=== PATIENT | female | born 1935 | race Caucasian/White ===

== ENCOUNTER 2022-11-16 17:46 | Inpatient (IN) ==
--- NOTE | 2022-11-16 18:23 | ED Triage Note ---
Date of Service November 16, 2022 History of Present Illness This patient was briefly evaluated while in triage. An abbreviated physical exam was performed. This patient is a 87-year-old Female who was referred to the emergency department by her PCP, Dr. Mejia, for evaluation of a syncopal episode, dizziness and new onset A-fib. According to her PCP, she is currently on 2 rate reducing medications. The patient also has a history of dementia. The patient was brought to the emergency department by her daughter. The patient reports a throbbing pain across the chest. The patient is a resident at [facility]. The patient believes that her palpitations started last night, and felt it in her right chest area. Patient also reports shortness of breath as well. Patient has a known history of aortic stenosis and coronary artery disease. The daughter did bring the ECG from the PCPs office, showing atrial fibrillation at a rate of 130 bpm without obvious ischemia or infarct. Physical Exam CONSTITUTIONAL: Healthy and well nourished. Alert and oriented X 3. HEENT: Mucous membranes are not dry. RESPIRATORY: Clear to auscultation bilaterally with no wheezing, crackles, rhonchi or stridor. CARDIOVASCULAR: Tachycardic rhythm without obvious murmurs, rubs or gallops. GASTROINTESTINAL: Bowel sounds present in all quadrants. INTEGUMENTARY: No rash or other significant dermatologic conditions noted. HEMATOLOGIC: No ecchymosis or petechiae. PSYCHIATRIC: Positive affect. NEUROLOGIC: No focal neurologic deficits noted. Initial orders for labs and / or imaging were placed and patient was placed in the waiting area until a bed is available. Please see further documentation for the full ED course.
[2022-11-16] MEDS ORDERED: dilTIAZem HCl 5 MG/ML 5 ML VIAL IV STA ×2 (18:43→19:13)
[2022-11-16] MEDS ORDERED: dilTIAZem HCl 5 MG/ML 5 ML VIAL IV ONE (18:44)
[2022-11-16] MEDS ORDERED: STAT IV Infusion **Titration per Protocol STA (18:47)
[2022-11-16] MEDS ORDERED: SODIUM CHLORIDE 0.9% 1000ML 1,000 ML IV SCH (19:00)
[2022-11-16 19:04] LABS: Basophils # (auto) 0.04 K/uL (0-0.2); Basophils % (auto) 0.4 %; Eosinophils # (auto) 0.04 K/uL (0-0.50); Eosinophils % (auto) 0.4 %; Hematocrit (blood only) 43.6 % (37.0-47.0); Hemoglobin 13.6 g/dl (12.0-16.0); Lymphocytes # (auto) 1.36 K/uL (1.2-3.4); Lymphocytes % (auto) 13.9 %; Mean Corpuscular Hemoglobin 27.1 pg (25.0-34.0); Mean Corpuscular Hgb Conc 31.2 g/dL (32.0-36.0); Mean Corpuscular Volume 86.9 fL (80.0-100.0); Mean Platelet Volume 10.2 fL (9.4-12.4); Monocytes # (auto) 0.95 K/uL (0.11-0.59); Monocytes % (auto) 9.7 %; Neutrophils # (auto) 7.31 K/uL (1.40-6.50); Neutrophils % (auto) 74.6 %; Platelet Count 258 K/uL (130-400); RDW Coefficient of Variation 15.3 % (11.5-14.5); RDW Standard Deviation 48.8 fL (36.4-46.3); Red Blood Count 5.02 M/uL (4.20-5.40)
[2022-11-16] MEDS: dilTIAZem HCL 125 MG in DEXTROSE 5% 100 ML IV SCH (19:05)
[2022-11-16 19:17] LABS: Albumin Globulin Ratio 1.6 (0.9-2); Albumin Level 4.4 gm/dl (3.4-5.0); BUN Creatinine Ratio 33.7 (10-20); Bilirubin,Total 0.4 mg/dl (0.2-1.0); Creatinine Clr Calc Pharmacy 43.3 ml/min; Est GFR (African American) 65.8 ml/min; Est GFR (Non-African American) 56.8 ml/min; Globulin 2.8 gm/dl (2.5-4.0); Magnesium 1.9 mg/dl (1.7-2.4); Potassium 4.5 mmol/L (3.5-5.1); Total Protein 7.2 gm/dl (6.0-8.3)
[2022-11-16 19:23] LABS: Troponin I High Sensitivity 40.3 pg/ml (0-14)
[2022-11-16 19:40] LABS: Partial Thromboplastin Ratio 0.9; Partial Thromboplastin Time 25.5 Seconds (21.0-31.0); Prothrombin Time 10.7 Seconds (9.0-12.0)
[2022-11-16 19:49] LABS: D Dimer 1160 ug/L FEU (0-500)
--- NOTE | 2022-11-16 19:50 | Emergency Department Note ---
History of Present Illness General Chief complaint: Tachycardia Stated complaint: TACHYCARDIA,SOB,SWEATING Time Seen by Provider: 11/16/22 18:37 Source: family (Daughter at bedside) History of Present Illness Provider complaint: Palpitations syncope shortness of breath Onset (ago): day(s) 1 87-year-old female with history of dementia presents emergency department for palpitations syncope shortness of breath. Daughter is at bedside giving history. Daughter reports that the patient has syncopal episode today. They took her to her PCP office at [facility] and then was found to have new onset atrial fibrillation. The patient is reporting shortness of breath but no chest pain. No blood thinners. Home Medications Medication Instructions Recorded Confirmed Type Saccharomyces boulardii 250 mg 250 mg PO QAM 12/06/21 11/16/22 History capsule acetaminophen 325 mg tablet 650 mg PO Q6H PRN PAIN/FEVER 12/06/21 11/16/22 History (Tylenol) allopurinol 100 mg tablet 100 mg PO QAM 12/06/21 11/16/22 History aspirin 81 mg chewable tablet 81 mg PO DAILY 12/06/21 11/16/22 History atorvastatin 10 mg tablet 10 mg PO PM 12/06/21 11/16/22 History carvedilol 3.125 mg tablet 1.5625 mg PO BID 12/06/21 11/16/22 History cholecalciferol (vitamin D3) 25 25 mcg PO Q OTHER DAY 12/06/21 11/16/22 History mcg (1,000 unit) capsule (Vitamin D3) cyanocobalamin (vitamin B-12) 500 1,000 mcg PO QAM 12/06/21 11/16/22 History mcg tablet (Vitamin B-12) diltiazem HCl 120 mg tablet 120 mg PO QAM 12/06/21 11/16/22 History insulin glargine 100 unit/mL (3 22 unit subcut HS 12/06/21 11/16/22 History mL) subcutaneous pen (Lantus Solostar U-100 Insulin) lactulose 10 gram/15 mL oral 30 g PO QAM 12/06/21 11/16/22 History solution [id number] 5 mg-zeaxanth 1 cap PO QID 12/06/21 11/16/22 History 1 mg-bilberry 7.5 mg-herbal capsule (Macular Health Formula) sodium chloride-aloe vera nasal 1 ea intranasal BID 12/06/21 11/16/22 History swab coQ10 (ubiquinol) 200 mg capsule 200 mg PO DAILY 11/16/22 11/16/22 History donepezil 10 mg tablet 10 mg PO DAILY 11/16/22 11/16/22 History escitalopram oxalate 10 mg tablet 10 mg PO DAILY 11/16/22 11/16/22 History (Lexapro) ezetimibe 10 mg tablet (Zetia) 10 mg PO DAILY 11/16/22 11/16/22 History losartan 25 mg tablet 12.5 mg PO DAILY 11/16/22 11/16/22 History metformin 500 mg tablet,extended 500 mg PO QDD 11/16/22 11/16/22 History release 24 hr Allergies Allergy/AdvReac Type Severity Reaction Status Date / Time pollen extracts Allergy Intermediate ITCHY Verified 11/16/22 19:31 EYES, SNEEZING, CONGESTION lisinopril Allergy Unknown CAN'T Verified 11/16/22 19:31 REMEMBER oxaprozin [From Daypro] Allergy Unknown CAN'T Verified 11/16/22 19:31 REMEMBER Penicillins Allergy Unknown CAN'T Verified 11/16/22 19:31 REMEMBER Past Med/Surg History Medical History Coronary artery disease Diabetic peripheral neuropathy Gout Gouty arthropathy History of bladder cancer History of subarachnoid hemorrhage History of traumatic brain injury Hyperlipidemia Intracranial bleed Memory loss Moderate to severe aortic stenosis No significant family history Type 2 diabetes mellitus Surgical History History of coronary artery stent placement No significant past surgical history Social History Smoking Status: Never smoker Preferred Language: Lithuanian marital status: / Current Living Situation: Alone current occupational status: retired Feels Safe at Home: Yes Physical Exam Vital Signs Vital Signs - 24 hr 11/16/22 18:18 11/16/22 19:12 11/16/22 18:54 Temperature 36.3 C L Temperature Source Temporal Artery Scan Pulse Rate 130 H 101 H Pulse Rate [Left Apical] 104 H Pulse Rhythm Regular Pulse Strength Normal Respiratory Rate 18 25 H Respiratory Effort / Characteristics Non-Labored Spontaneous Respiratory Depth Normal Respiratory Pattern Regular Blood Pressure 138/87 Blood Pressure [Right Arm] 132/83 Blood Pressure Mean 104 Blood Pressure Mean [Right Arm] 99 Blood Pressure Position Sitting Pulse Oximetry 96 97 Oxygen Delivery Method Room Air Room Air Sepsis Recent Fever Within 48 Hours No Sepsis New/Unexplained Change in Mental Status No Sepsis Action Taken by Nursing No Action Required 11/16/22 19:12 11/16/22 19:15 11/16/22 19:30 Temperature Temperature Source Pulse Rate 91 H 98 H 99 H Pulse Rate [Left Apical] Pulse Rhythm Pulse Strength Respiratory Rate 25 H 26 H 26 H Respiratory Effort / Characteristics Respiratory Depth Respiratory Pattern Blood Pressure 132/83 130/99 127/82 Blood Pressure [Right Arm] Blood Pressure Mean 99 109 97 Blood Pressure Mean [Right Arm] Blood Pressure Position Pulse Oximetry 96 95 95 Oxygen Delivery Method Room Air Room Air Room Air Sepsis Recent Fever Within 48 Hours Sepsis New/Unexplained Change in Mental Status Sepsis Action Taken by Nursing 11/16/22 19:45 11/16/22 20:25 11/16/22 20:30 Temperature Temperature Source Pulse Rate 115 H 90 99 H Pulse Rate [Left Apical] Pulse Rhythm Pulse Strength Respiratory Rate 26 H 18 18 Respiratory Effort / Characteristics Respiratory Depth Respiratory Pattern Blood Pressure 122/99 122/78 140/89 Blood Pressure [Right Arm] Blood Pressure Mean 106 92 106 Blood Pressure Mean [Right Arm] Blood Pressure Position Pulse Oximetry 94 95 95 Oxygen Delivery Method Room Air Room Air Room Air Sepsis Recent Fever Within 48 Hours Sepsis New/Unexplained Change in Mental Status Sepsis Action Taken by Nursing 11/16/22 21:00 11/16/22 21:30 Temperature Temperature Source Pulse Rate 103 H 96 H Pulse Rate [Left Apical] Pulse Rhythm Pulse Strength Respiratory Rate 29 H 29 H Respiratory Effort / Characteristics Respiratory Depth Respiratory Pattern Blood Pressure 138/85 123/102 H Blood Pressure [Right Arm] Blood Pressure Mean 102 109 Blood Pressure Mean [Right Arm] Blood Pressure Position Pulse Oximetry 95 94 Oxygen Delivery Method Room Air Room Air Sepsis Recent Fever Within 48 Hours Sepsis New/Unexplained Change in Mental Status Sepsis Action Taken by Nursing Physical Exam HENT: Exam performed. -Head: Normocephalic and atraumatic. -Right Ear: External ear normal. No mastoid erythema -Left Ear: External ear normal. No mastoid erythema -Mouth/Throat: The oropharynx is clear and moist. No trismus in the jaw. No dental abscesses or uvula swelling. No oropharyngeal exudate or tonsillar abscesses. EYES: Conjunctivae and EOM are normal. Pupils are equal, round, and reactive to light. Right eye exhibits no discharge. Left eye exhibits no discharge. No scleral icterus. NECK: spinous process tenderness present. No JVD. CV: Tachycardic rate, irregular rhythm, normal heart sounds and intact distal pulses. There is no peripheral edema. Palpable radial pulses bue. PULM/CHEST: Effort normal and breath sounds normal. No respiratory distress. No stridor. She has no wheezes. She has no rales. ABD: The abdomen is soft.There is no tenderness. There is no rebound, no guarding. MUSC/SKEL: Pelvis stable. NEURO: Motor and sensation grossly intact. Course Course 1836: The patient was evaluated in room A10. A complete history and physical exam was performed Cardiac monitoring: An order was placed for continuous cardiac monitoring. The monitor shows a rate of 130-150 with atrial fibrilation rhythm interpreted by me Patient was found to be in A-fib RVR. Local IV access was obtained the patient was given Cardizem 15 mg IV push which improved ventricular rate. Patient be started on Cardizem drip. 2208: Vital signs stable Cardizem drip. Labs within normal limits with exceptio n of elevated D-dimer and elevated troponin. CTA of the chest negative for PE. There is mention of possible bronchitis/scarring of the lungs/pneumonia, patient has no leukocytosis no cough no fever, not thought to need any antibiotics at this time. No anticoagulation for the patient is going to be started as the patient has a sick Kniffin history for history of a traumatic brain injury and subarachnoid hemorrhage. Aspirin will be given to the patient. Patient be admitted to the [facility] team Dr. Lowe notified. Administered Medications Diltiazem HCl 125 mg/ Dextrose 125 mls @ 7.5 mls/hr IV .[id number] [facility]; Protocol Stop: 12/16/22 18:59 Last Titration: 11/16/22 21:20 Dose: 7.5 mg/hr, 7.5 mls/hr Documented By: SANDRA Co-signed By: KIMBERLY Admin: 11/16/22 19:05 Dose: 5 mg/hr, 5 mls/hr Documented By: LILLIAM Co-signed By: Sodium Chloride (Nss 1000ml) 1,000 mls @ 80 mls/hr IV .[id number] ANTWAN Stop: 12/16/22 18:59 Last Admin: 11/16/22 19:09 Dose: 80 mls/hr Documented By: LILLIAM Discontinued Medications Diltiazem HCl (Diltiazem Hcl 5 Mg/Ml 5 Ml Vial) 20 mg IV NOW STA Stop: 11/16/22 18:44 Last Admin: 11/16/22 20:43 Dose: Not Given Documented By: SANDRA Diltiazem HCl (Diltiazem Hcl 5 Mg/Ml 5 Ml Vial) Confirm Administered Dose 25 mg IV .STK-MED ONE Stop: 11/16/22 18:45 Last Admin: 11/16/22 19:17 Dose: Not Given Documented By: LILLIAM Diltiazem HCl (Diltiazem Hcl 5 Mg/Ml 5 Ml Vial) 15 mg IV NOW STA Stop: 11/16/22 19:14 Last Admin: 11/16/22 19:00 Dose: 15 mg Documented By: LILLIAM Co-signed By: Ioversol (Optiray 320 500ml) 108 ml IV ONCE ONE Stop: 11/16/22 20:06 Last Admin: 11/16/22 20:05 Dose: 108 ml Documented By: ILIANA Miscellaneous (Stat Iv Infusion Titration Per Protocol) 1 each N/A NOW STA Stop: 11/16/22 18:48 Last Admin: 11/16/22 21:32 Dose: Not Given Documented By: SANDRA Critical Care Time Critical Care Time: Yes Total Critical Care Time: 58 I have personally spent greater than 58 minutes of critical care time in the direct management of this patient. This includes bedside care, interpretation of diagnostic studies, and testing, discussion with consultants, patient, and family members, and other required patient management activities. This 58 minutes is in excess of all separately billable procedures. Medical Decision Making Laboratory Data Attestation: I reviewed the patient's lab results. 11/16/22 18:26 11/16/22 18:26 Lab Results 11/16/22 11/16/22 11/16/22 Range/Units 18:26 18:26 18:26 WBC 9.80 (4.8-10.8) K/ul RBC 5.02 (4.20-5.40) M/uL Hgb 13.6 (12.0-16.0) g/dl Hct 43.6 (37.0-47.0) % MCV 86.9 (80.0-100.0) fL MCH 27.1 (25.0-34.0) pg MCHC 31.2 L (32.0-36.0) g/dL RDW Std Deviation 48.8 H (36.4-46.3) fL RDW Coeff of Alejandra 15.3 H (11.5-14.5) % Plt Count 258 (130-400) K/uL MPV 10.2 (9.4-12.4) fL Immature Gran % (Auto) 1.0 % Neut % (Auto) 74.6 % Lymph % (Auto) 13.9 % Maries % (Auto) 9.7 % Eos % (Auto) 0.4 % Baso % (Auto) 0.4 % Neut # (Auto) 7.31 H (1.40-6.50) K/uL Lymph # (Auto) 1.36 (1.2-3.4) K/uL Maries # (Auto) 0.95 H (0.11-0.59) K/uL Eos # (Auto) 0.04 (0-0.50) K/uL Baso # (Auto) 0.04 (0-0.2) K/uL Immature Gran # (Auto) 0.10 (0.01-0.20) K/uL PT 10.7 (9.0-12.0) Seconds INR 1.0 (0.9-1.1) APTT 25.5 (21.0-31.0) Seconds PTT Ratio 0.9 D-Dimer 1160 H* (0-500) ug/L FEU Sodium 139 (136-145) mmol/L Potassium 4.5 (3.5-5.1) mmol/L Chloride 102 (98-107) mmol/L Carbon Dioxide 31 (21-32) mmol/L Anion Gap 6 (3-11) BUN 31 H (6-23) mg/dl Creatinine 0.92 (0.6-1.2) mg/dl Est Cr Clr Drug Dosing 43.3 ml/min Est GFR ( Amer) 65.8 ml/min Est GFR (Non-Af Amer) 56.8 ml/min BUN/Creatinine Ratio 33.7 H (10-20) Glucose 163 H (70-99(Fasting)) mg/dl Calcium 10.0 (8.6-10.3) mg/dl Magnesium 1.9 (1.7-2.4) mg/dl Total Bilirubin 0.4 (0.2-1.0) mg/dl AST 32 (13-39) U/L ALT 41 (7-52) U/L Alkaline Phosphatase 93 (34-104) U/L Troponin I High Sens 40.3 H (0-14) pg/ml Total Protein 7.2 (6.0-8.3) gm/dl Albumin 4.4 (3.4-5.0) gm/dl Globulin 2.8 (2.5-4.0) gm/dl Albumin/Globulin Ratio 1.6 (0.9-2) Imaging Data Attestation: I personally reviewed and interpreted this imaging study as follows: My Impression: Chest x-ray negative. Airway clear. No pneumothorax. No consolidation. No cardiomegaly or cephalization.. No free air under the diaphragm. No fractures of the skeletal structures. Radiologist's Impression: Head CT 11/16/22 18:38 Exam(s): CT HEAD Without Contrast EXAM: CT Head Without Intravenous Contrast CLINICAL HISTORY: Reason for exam: syncope. TECHNIQUE: Axial computed tomography images of the head/brain without intravenous contrast. CTDI is 26.22 mGy and DLP is 531.35 mGy-cm. Automated exposure control was utilized for the study. A dose lowering technique was utilized adhering to the principles of ALARA. COMPARISON: December 06, 2021 FINDINGS: Brain: Mild cerebral atrophy and periventricular white matter low density consistent with chronic small vessel disease and/or senescent changes. 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 No acute large vessel infarct or intracranial hemorrhage is seen. Ventricles: Unremarkable. No ventriculomegaly. Bones/joints: Unremarkable. No acute fracture. Soft tissues: Unremarkable. Sinuses: Unremarkable as visualized. No acute sinusitis. Mastoid air cells: Unremarkable as visualized. No mastoid effusion. IMPRESSION: Mild cerebral atrophy and periventricular white matter low density consistent with chronic small vessel disease and/or senescent changes. 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 No acute large vessel infarct or intracranial hemorrhage is seen. Electronically signed by: Ayush Grimes MD 11/16/22 21:[address] 11/16/22 18:47 Exam(s): CT C SPINE EXAM: CT Cervical Spine Without Intravenous Contrast CLINICAL HISTORY: Reason for exam: fall syncope. TECHNIQUE: Axial computed tomography images of the cervical spine without intravenous contrast. CTDI is 11.4 mGy and DLP is 5.7 mGy-cm. Automated exposure control was utilized for the study. A dose lowering technique was utilized adhering to the principles of ALARA. COMPARISON: No relevant prior studies available. FINDINGS: Vertebrae: There is mild narrowing and osteophytosis of the atlantodental joint. The odontoid process is intact. No acute fracture. Soft tissues: Moderate calcification of the left carotid bifurcation. DISCS/SPINAL CANAL/NEURAL FORAMINA: C2-C3: Unremarkable. No significant disc disease. No stenosis. C3-C4: Moderate degenerative disc disease. No stenosis. C4-C5: Mild degenerative disc disease. No stenosis. C5-C6: Moderate degenerative disc disease. No stenosis. C6-C7: Moderate degenerative disc disease. No stenosis. C7-T1: Mild degenerative disc disease. No stenosis. IMPRESSION: Mild to moderate multilevel degenerative disc disease and facet arthrosis throughout the cervical spine. No acute fracture or traumatic subluxation is seen. Electronically signed by: Ayush Grimes MD 11/16/22 21:46 PM Chest CTA 11/16/22 19:50 Exam(s): CTA CHEST IV Amt: 108ML OPTIRAY 320 EXAM: CT Angiography Chest With Intravenous Contrast CLINICAL HISTORY: Reason for exam: Syncope, fall, ro PE. TECHNIQUE: Axial computed tomographic angiography images of the chest with intravenous contrast. CTDI is 38.24 mGy and DLP is 546.36 mGy-cm. Automated exposure control was utilized for the study. A dose lowering technique was utilized adhering to the principles of ALARA. MIP reconstructed images were created and reviewed. COMPARISON: Chest x-ray from November 16, 2022 FINDINGS: Pulmonary arteries: The main pulmonary artery is mildly dilated measuring 4.4 cm suggesting some component of ulnar artery hypertension. The pulmonary arterial tree is well opacified with contrast. No pulmonary emboli are identified. Aorta: The thoracic aorta is mildly calcified but nondilated. There is no aneurysm or dissection. Lungs: Mildly prominent interstitial markings throughout the lungs with scattered linear scarring versus interstitial infiltrates in both lung bases. There is diffuse bronchial wall thickening consistent with bronchitis and/or emphysema. No mass. Pleural space: Unremarkable. No significant effusion. No pneumothorax. Heart: Heart is mildly enlarged. Severe coronary calcification is present. There is a trace pericardial effusion. No evidence of RV dysfunction. Bones/joints: Moderate multilevel degenerative changes throughout the spine. No acute fracture or destructive bone lesion is seen. Bilateral shoulder arthroplasties. No dislocation. Soft tissues: Unremarkable. Lymph nodes: Unremarkable. No enlarged lymph nodes. Kidneys and ureters: Limited images of the upper abdomen demonstrate numerous bilateral simple renal cysts. IMPRESSION: 1. The main pulmonary artery is mildly dilated measuring 4.4 cm suggesting some component of ulnar artery hypertension. 2. Heart is mildly enlarged. Severe coronary calcification is present. There is a trace pericardial effusion. 3. Mildly prominent interstitial markings throughout the lungs with scattered linear scarring versus interstitial infiltrates in both lung bases. There is diffuse bronchial wall thickening consistent with bronchitis and/or emphysema. 4. The pulmonary arterial tree is well opacified with contrast. No pulmonary emboli are identified. 5. The thoracic aorta is mildly calcified but nondilated. There is no aneurysm or dissection. Electronically signed by: Ayush Grimes MD 11/16/22 21:14 PM ECG Data Attestation: I personally reviewed and interpreted this ECG as follows: Additional Comments: EKG #1 at 1834: Atrial fibrillation with rate of 128. QRS [address] elevation or ST depression. EKG #2 at 1849 status post Cardizem bolus: Atrial fibrillation with a rate of 116. QRS [address] elevation or ST depression. [facility] Narrative 1837: The patient was evaluated in room A10. A complete history and physical exam was performed Cardiac monitoring: An order was placed for continuous cardiac monitoring. The monitor shows a rate of 130-150 with atrial fibrilation rhythm interpreted by me Patient was found to be in A-fib RVR. Local IV access was obtained the patient was given Cardizem 15 mg IV push which improved ventricular rate. Patient be started on Cardizem drip. 2208: Vital signs stable Cardizem drip. Labs within normal limits with e xception of elevated D-dimer and elevated troponin. CTA of the chest negative for PE. There is mention of possible bronchitis/scarring of the lungs/pneumonia, patient has no leukocytosis no cough no fever, not thought to need any antibiotics at this time. No anticoagulation for the patient is going to be started as the patient has a sick [place]iff[place] history for history of a traumatic brain injury and subarachnoid hemorrhage. Aspirin will be given to the patient. Patient be admitted to the [facility] hospitalist team Dr. Lowe notified. Impression & Plan Atrial fibrillation with RVR, Syncope, Elevated troponin Discharge Plan Visit Data Chief Complaint: Tachycardia Stated Complaint: TACHYCARDIA,SOB,SWEATING ED Provider: Frederick Whitlock Discharge Problem: Atrial fibrillation with RVR, Syncope, Elevated troponin Patient Disposition: Admitted As Inpatient Forms Stand Alone Forms: [facility] Prescriptions Prescriptions: No Action acetaminophen [Tylenol] 325 mg Tablet 650 mg PO Q6H MDD 3 GRAMS/24 HOURS PRN (Reason: PAIN/FEVER) atorvastatin 10 mg Tablet 10 mg PO PM allopurinol 100 mg Tablet 100 mg PO QAM carvedilol 3.125 mg Tablet 1.5625 mg PO BID diltiazem HCl 120 mg Tablet 120 mg PO QAM cyanocobalamin (vitamin B-12) [Vitamin B-12] 500 mcg Tablet 1,000 mcg PO QAM aspirin 81 mg Tablet,Chewable 81 mg PO DAILY cholecalciferol (vitamin D3) [Vitamin D3] 25 mcg (1,000 unit) Capsule 25 mcg PO Q OTHER DAY Saccharomyces boulardii 250 mg Capsule 250 mg PO QAM lactulose 10 gram/15 mL Solution 30 g PO QAM [place] Saline Gel Swab 1 ea INTRANASAL BID Rx Instructions: NASAL DRYNESS insulin glargine [Lantus Solostar U-100 Insulin] 100 unit/mL (3 mL) Insulin Pen 22 unit SUBCUT [facility] Formula 5-1-7.5 mg Capsule 1 cap PO QID donepezil 10 mg Tablet 10 mg PO DAILY losartan 25 mg Tablet 12.5 mg PO DAILY metformin 500 mg Tablet Extended Release 24 Hr 500 mg PO QDD escitalopram oxalate [Lexapro] 10 mg Tablet 10 mg PO DAILY ezetimibe [Zetia] 10 mg Tablet 10 mg PO DAILY coQ10 (ubiquinol) 200 mg Capsule 200 mg PO DAILY Referrals Referrals: Lisa Dasilva Vernon [Primary Care Provider] - Syncope Qualifiers: Syncope type: unspecified Qualified Code(s): R55 - Syncope and collapse
[2022-11-16] MEDS ORDERED: OPTIRAY 320 500ml IV ONE (20:05)
--- NOTE | 2022-11-16 21:15 | CT Scan Report ---
Exam(s): CTA CHEST IV Amt: 108ML OPTIRAY 320 EXAM: CT Angiography Chest With Intravenous Contrast CLINICAL HISTORY: Reason for exam: Syncope, fall, ro PE. TECHNIQUE: Axial computed tomographic angiography images of the chest with intravenous contrast. CTDI is 38.24 mGy and DLP is 546.36 mGy-cm. Automated exposure control was utilized for the study. A dose lowering technique was utilized adhering to the principles of ALARA. MIP reconstructed images were created and reviewed. COMPARISON: Chest x-ray from November 16, 2022 FINDINGS: Pulmonary arteries: The main pulmonary artery is mildly dilated measuring 4.4 cm suggesting some component of ulnar artery hypertension. The pulmonary arterial tree is well opacified with contrast. No pulmonary emboli are identified. Aorta: The thoracic aorta is mildly calcified but nondilated. There is no aneurysm or dissection. Lungs: Mildly prominent interstitial markings throughout the lungs with scattered linear scarring versus interstitial infiltrates in both lung bases. There is diffuse bronchial wall thickening consistent with bronchitis and/or emphysema. No mass. Pleural space: Unremarkable. No significant effusion. No pneumothorax. Heart: Heart is mildly enlarged. Severe coronary calcification is present. There is a trace pericardial effusion. No evidence of RV dysfunction. Bones/joints: Moderate multilevel degenerative changes throughout the spine. No acute fracture or destructive bone lesion is seen. Bilateral shoulder arthroplasties. No dislocation. Soft tissues: Unremarkable. Lymph nodes: Unremarkable. No enlarged lymph nodes. Kidneys and ureters: Limited images of the upper abdomen demonstrate numerous bilateral simple renal cysts. IMPRESSION: 1. The main pulmonary artery is mildly dilated measuring 4.4 cm suggesting some component of ulnar artery hypertension. 2. Heart is mildly enlarged. Severe coronary calcification is present. There is a trace pericardial effusion. 3. Mildly prominent interstitial markings throughout the lungs with scattered linear scarring versus interstitial infiltrates in both lung bases. There is diffuse bronchial wall thickening consistent with bronchitis and/or emphysema. 4. The pulmonary arterial tree is well opacified with contrast. No pulmonary emboli are identified. 5. The thoracic aorta is mildly calcified but nondilated. There is no aneurysm or dissection. Electronically signed by: Ayush Grimes MD 11/16/22 21:14 PM
--- NOTE | 2022-11-16 21:41 | CT Scan Report ---
Exam(s): CT HEAD Without Contrast EXAM: CT Head Without Intravenous Contrast CLINICAL HISTORY: Reason for exam: syncope. TECHNIQUE: Axial computed tomography images of the head/brain without intravenous contrast. CTDI is 26.22 mGy and DLP is 531.35 mGy-cm. Automated exposure control was utilized for the study. A dose lowering technique was utilized adhering to the principles of ALARA. COMPARISON: December 06, 2021 FINDINGS: Brain: Mild cerebral atrophy and periventricular white matter low density consistent with chronic small vessel disease and/or senescent changes. 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 No acute large vessel infarct or intracranial hemorrhage is seen. Ventricles: Unremarkable. No ventriculomegaly. Bones/joints: Unremarkable. No acute fracture. Soft tissues: Unremarkable. Sinuses: Unremarkable as visualized. No acute sinusitis. Mastoid air cells: Unremarkable as visualized. No mastoid effusion. IMPRESSION: Mild cerebral atrophy and periventricular white matter low density consistent with chronic small vessel disease and/or senescent changes. 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 No acute large vessel infarct or intracranial hemorrhage is seen. Electronically signed by: Ayush Grimes MD 11/16/22 21:40 PM
--- NOTE | 2022-11-16 21:47 | CT Scan Report ---
Exam(s): CT C SPINE EXAM: CT Cervical Spine Without Intravenous Contrast CLINICAL HISTORY: Reason for exam: fall syncope. TECHNIQUE: Axial computed tomography images of the cervical spine without intravenous contrast. CTDI is 11.4 mGy and DLP is 5.7 mGy-cm. Automated exposure control was utilized for the study. A dose lowering technique was utilized adhering to the principles of ALARA. COMPARISON: No relevant prior studies available. FINDINGS: Vertebrae: There is mild narrowing and osteophytosis of the atlantodental joint. The odontoid process is intact. No acute fracture. Soft tissues: Moderate calcification of the left carotid bifurcation. DISCS/SPINAL CANAL/NEURAL FORAMINA: C2-C3: Unremarkable. No significant disc disease. No stenosis. C3-C4: Moderate degenerative disc disease. No stenosis. C4-C5: Mild degenerative disc disease. No stenosis. C5-C6: Moderate degenerative disc disease. No stenosis. C6-C7: Moderate degenerative disc disease. No stenosis. C7-T1: Mild degenerative disc disease. No stenosis. IMPRESSION: Mild to moderate multilevel degenerative disc disease and facet arthrosis throughout the cervical spine. No acute fracture or traumatic subluxation is seen. Electronically signed by: Ayush Grimse MD 11/16/22 21:46 PM
[2022-11-17] MEDS ORDERED: CARBOHYDRATES FOR HYPOGLYCEMIA PO PRN ×2 (00:38→07:59)
[2022-11-17] MEDS: INSULIN ASPART PER UNIT CHARGE SC SCH ×5 (00:38→20:17)
[2022-11-17] MEDS ORDERED: SODIUM CHLORIDE 0.9% 1000ML 1,000 ML IV SCH (00:38)
[2022-11-17] MEDS ORDERED: DEXTROSE 50% 50 ML SYRINGE IV PRN ×2 (00:38→07:59)
[2022-11-17] MEDS ORDERED: ACETAMINOPHEN 325 MG TAB PO PRN (00:38)
[2022-11-17] MEDS ORDERED: GLUCOSE 10 TAB/TUBE PO PRN ×2 (00:38→07:59)
[2022-11-17] MEDS ORDERED: GLUCOSE 40% GEL 15 GM TUBE PO PRN ×2 (00:38→07:59)
[2022-11-17] MEDS ORDERED: NITROGLYCERIN SL 0.4 MG/TAB TAB SL PRN (00:38)
[2022-11-17] MEDS ORDERED: GLUCAGON FOR INJ 1 MG VIAL SQ PRN ×2 (00:38→07:59)
--- NOTE | 2022-11-17 02:37 | History and Physical Report ---
DATE OF ADMISSION: 11/16/2022. CHIEF COMPLAINT: Rapid AFib. HISTORY OF PRESENT ILLNESS: An 87-year-old female with past medical history significant for type 2 diabetes, diabetic peripheral neuropathy, hyperlipidemia, CAD, hypertension, severe aortic valve stenosis, moderate aortic valve stenosis, macular degeneration, gouty arthropathy, history of traumatic brain injury and subarachnoid hemorrhage as per the Epic in 10/2021, but daughter says this was in 05/2021, history of Alzheimer disease, depression, history of bladder cancer, seems to be in 2008, presents with rapid AFib. The patient went to her family doctor for regular visits and found to be in AFib and sent here and when she came in, heart rate was in the 130s. Currently with Cardizem drip,heart rates improved. The patient gets on and off chest pains per daughter for some time and she gets short of breath with exertion. She states she feels palpitations and at that time, she has some headaches. Today she is feeling hot and says she had sweats like this couple of months ago. Denies any blurred visions, no earache, no runny nose, no sore throat, difficulty swallowing. Appetite is okay. No nausea, no abdominal pain. Normal bowel and bladder movements. No swelling of the legs. The patient is very hard of hearing. Daughter is in the room, who is helping with H and P. ALLERGIES: POLLEN EXTRACTS, LISINOPRIL, OXAPROZIN, PENICILLINS. PAST MEDICAL HISTORY: As mentioned above. PAST SURGICAL HISTORY: Hysterectomy, cataract surgery, bilateral shoulder replacement. MEDICATIONS: The patient is on Tylenol 650 mg p.o. every 6 hours p.r.n., allopurinol 100 mg p.o. a.m., aspirin 81 mg p.o. daily, atorvastatin 10 mg p.o. daily, Coreg 3.125 mg tablets 1/2 tablet p.o. b.i.d., vitamin D 25 mcg p.o. every other day, vitamin B12 1000 mcg p.o. daily, diltiazem 120 mg p.o. daily, donepezil 10 mg p.o. daily, Lexapro 10 mg p.o. daily, Zetia 10 mg p.o. daily, Lantus 22 units subcutaneous at bedtime, lactulose 30 gm p.o. a.m., losartan 12.5 mg p.o. daily, metformin 500 mg p.o. daily, multivitamin 1 capsule p.o. q.i.d., saccharomyces 250 mg p.o. a.m. FAMILY HISTORY: Significant for sister has breast cancer,Brother has eye problems and stroke,. Mother has eye problems, heart disorder, stroke and thyroid disorder. Father has heart disorder. SOCIAL HISTORY: Currently lives at [facility]. No smoking, no alcohol, no drug use. REVIEW OF SYSTEMS: As per HPI. Rest of the review of systems is negative. PHYSICAL EXAMINATION: GENERAL: The patient is alert and awake, very hard of hearing, not in acute distress. VITAL SIGNS: Temperature 36.3, pulse 87, respiratory rate 26, blood pressure 143/82, oxygen 93% on room air. HEENT: Pupils equal, round and reactive to light. Oral mucosa moist. NECK: No JVD. No neck masses. CARDIOVASCULAR: S1 and S2 heard. Regular rhythm, tachycardia. RESPIRATORY SYSTEM: Normal AP diameter. No accessory muscle use. No wheezing, no crackles. ABDOMEN: Soft, bowel sounds present, nontender, no distention. CENTRAL NERVOUS SYSTEM: Alert and oriented. Speech is clear. No facial droop. Obeys simple commands. Moves extremities. EXTREMITIES: No edema, no erythema. LABORATORY DATA: WBC 9.8, hemoglobin 13.6, hematocrit 43.6, platelets 258. PT 10.7, INR 1, APTT 25.8. D-dimer 1160. Sodium 139, potassium 4.5, chloride 102, bicarb 31, BUN 31, creatinine 0.9, serum glucose 163, calcium 10, magnesium 1.9, total bilirubin 0.4, AST 32, ALT 41, alkaline phosphatase 93. Troponin I high sensitivity 40.3. SARS-COVID rapid test negative. IMAGING DATA: CTA chest, main pulmonary artery is mildly dilated, measuring 4.4 cm, suggesting some component of pulmonary artery hypertension. Severe coronary artery calcification is present. Trace pericardial effusion. Diffuse bronchial wall thickening consistent with bronchitis or emphysema. Cervical spine CT, no acute findings. Head CT, no acute findings, old infarct in the occipital region. Chest x-ray, no acute findings. EKG, rapid atrial fibrillation with rate of 128, nonspecific ST abnormalities. ASSESSMENT AND PLAN: An 87-year-old female, who presents with rapid atrial fibrillation. 1. Rapid atrial fibrillation. Rate controlled with IV Cardizem, which will be continued. We will hold home p.o. diltiazem. Continue home Coreg. Because of history of falls and subarachnoid hemorrhage, Not started on anticoagulation for now. Consult cardiology in the a.m. for further recommendations. We will follow echocardiogram. Monitor in the tele floor, n.p.o. after midnight. 2. Diabetes. Currently n.p.o. We will continue with reduced Lantus 20 units at bedtime, insulin sliding scale. Hold metformin. Follow the blood sugars, follow HbA1c levels. 3. History of coronary artery disease. Continue aspirin, statin, and beta- jocelyn. Follow echocardiogram. 4. History of severe aortic valve stenosis.Will follow echo. Monitor for volume overload 5. History of mitral valve stenosis. Monitor for volume overload. Follow echocardiogram. Await cardiac input. 6. History of gout. Continue allopurinol. 7. Alzheimer disease. Monitor for delirium. 8. Hypertension. Continue losartan, Coreg. Currently on Cardizem drip. Holding p.o. diltiazem. Will monitor the blood pressure. 9. Depression. Continue Lexapro. 10. Deep venous thrombosis prophylaxis. Sequential compression devices for now. DISPOSITION: Closely monitor in the tele floor. Level 1 full code if chance of recovery as per discussion with the patient and daughter. PT/OT prior to discharge. Social service to help with discharge planning. Job ID: [id number] MTDD
[2022-11-17 05:49] LABS: Basophils # (auto) 0.03 K/uL (0-0.2); Basophils % (auto) 0.3 %; Eosinophils # (auto) 0.07 K/uL (0-0.50); Eosinophils % (auto) 0.8 %; Hematocrit (blood only) 41.1 % (37.0-47.0); Hemoglobin 13.2 g/dl (12.0-16.0); Immature Granulocytes # (auto) 0.06 K/uL (0.01-0.20); Immature Granulocytes % (auto) 0.7 %; Lymphocytes # (auto) 1.22 K/uL (1.2-3.4); Lymphocytes % (auto) 14.1 %; Mean Corpuscular Hemoglobin 27.6 pg (25.0-34.0); Mean Corpuscular Hgb Conc 32.1 g/dL (32.0-36.0); Mean Corpuscular Volume 85.8 fL (80.0-100.0); Mean Platelet Volume 10.4 fL (9.4-12.4); Monocytes # (auto) 0.82 K/uL (0.11-0.59); Monocytes % (auto) 9.5 %; Neutrophils # (auto) 6.44 K/uL (1.40-6.50); Neutrophils % (auto) 74.6 %; Platelet Count 199 K/uL (130-400); RDW Coefficient of Variation 15.4 % (11.5-14.5); RDW Standard Deviation 47.9 fL (36.4-46.3); Red Blood Count 4.79 M/uL (4.20-5.40); White Blood Count 8.64 K/ul (4.8-10.8)
[2022-11-17 06:03] LABS: BUN Creatinine Ratio 31.5 (10-20); Calcium 9.5 mg/dl (8.6-10.3); Creatinine Clr Calc Pharmacy 55.7 ml/min; Est GFR (Non-African American) 75.1 ml/min; Magnesium 1.6 mg/dl (1.7-2.4); Potassium 4.2 mmol/L (3.5-5.1)
--- NOTE | 2022-11-17 07:04 | Electrocardiogram Report ---
Test Reason : Blood Pressure : / mmHG Vent. Rate : 116 BPM Atrial Rate : 000 BPM P-R Int : 000 ms QRS Dur : 082 ms QT Int : 326 ms P-R-T Axes : 000 -04 091 degrees QTc Int : 453 ms Atrial fibrillation with rapid ventricular response Nonspecific ST and T wave abnormality Abnormal ECG When compared with ECG of 16-NOV-2022 18:34, (unconfirmed) No significant change was found Confirmed by Ruddy Marsh ([id number]) on 11/17/2022 7:04:23 AM Referred By: Ravin Mejia Confirmed By:Cristian Marsh
--- NOTE | 2022-11-17 07:04 | Electrocardiogram Report ---
Test Reason : Blood Pressure : / mmHG Vent. Rate : 128 BPM Atrial Rate : 000 BPM P-R Int : 000 ms QRS Dur : 078 ms QT Int : 320 ms P-R-T Axes : 000 -06 096 degrees QTc Int : 467 ms Atrial fibrillation with rapid ventricular response Nonspecific ST and T wave abnormality Abnormal ECG No previous ECGs available Confirmed by Ruddy Marsh ([id number]) on 11/17/2022 7:04:10 AM Referred By: Ravin Mejia Confirmed By:Cristian Marsh
--- NOTE | 2022-11-17 07:24 | XRay Report ---
XR chest 1V portable HISTORY: Chest pain, nonspecific COMPARISON: Chest 12/06/2021. FINDINGS: No pneumothorax. No pleural effusions. Bibasilar linear densities consistent with subsegmen heriberto atelectasis or scarring. This remains unchanged. The heart remains enlarged. There are mitral cecille ulus calcifications. Stable prominence of the right hilum due to enlargement of the central pulmonary arteries from pulmonary arterial hypertension. Bilateral total shoulder arthroplasties are again not ed. IMPRESSION: No significant change compared to the prior study. No acute process. ACT 112: Negative or not required by law. Electronically signed by: Paul Paniagua M.D. 11/17/2022 7:23 AM
[2022-11-17] MEDS ORDERED: carvediloL 3.125 MG TAB PO SCH (09:00)
[2022-11-17] MEDS ORDERED: LOSARTAN POTASSIUM 25 MG TAB PO SCH (09:00)
--- NOTE | 2022-11-17 09:20 | Cardiology Consultation ---
Date of Consultation November 17, 2022 Assessment & Plan (1) Atrial fibrillation with RVR: (2) Syncope: (3) Severe aortic stenosis: (4) Moderate mitral stenosis: Plan 87-year-old female with a known history of dementia, severe stenosis, moderate mitral stenosis, coronary heart disease presents with an episode of syncope, details not well known, vague chest discomfort, and newly recognized atrial fibrillation with rapid ventricular spots. High-sensitivity troponin measurements mildly elevated on presentation and trending downward with sequential measurements of 40.3, 31, and 28.7 PG per mL. Patient with history of multiple falls. In May, she was found to have multiple subarachnoid hemorrhages after a fall with head trauma. She is likely not a good candidate for long-term anticoagulation, however she is considered to be at a very high risk of stroke in the setting of atrial fibrillation with [id number] score of 8 (female, HTN, age >75, past stroke, CAD, DM2). CT is reassuring with no acute hemorrhage although it does reveal a previous infarct. In the short-term, recommend proceeding with unfractioned heparin infusion, low-dose without bolus. Continue IV diltiazem 7.5 mg/h. Discontinue oral carvedilol in favor of metoprolol tartrate 25 mg by mouth 4 times daily which can in turn be titrated up or down as her hospital stay progresses. Patient has a tentative upcoming appointment with the comprehensive valve clinic at [facility] scheduled on 11/21/2022. Her daughter and I had previously had a conversation that ongoing conservative management of her valve disease may be in the patient's best interest given her dementia and sedentary lifestyle. History of Present Illness Attending Physician: Donnie Smallwood MD History of Present Illness Sofia Quarles is an 87 year old female seen in cardiology consultation per the request of Dr Pinto for the evaluation of new onset atrial fibrillation with rapid ventricular response. The patient had recently been seen by the undersigned in outpatient consultation on 10/16/2022. She was accompanied by her daughter, Cassie, at that visit. She was previously followed by cardiology in [place] however, has suffered a progressive decline with regards to dementia, cognitive impairment, and multiple falls. She had been followed at [facility] for a fall that took place in May, with head trauma and the CT report dated 05/04/2021 from [facility] describes multiple subarachnoid hemorrhages at that time. About 8 months ago the patient moved to [facility] and his establish with local providers since she is no longer residing in [place]. An echocardiogram performed in August, revealed severe calcific aortic stenosis, moderate mitral stenosis, and preserved ejection fraction. A small circumferential pericardial effusion was noted. In the meantime a repeat study was performed on 10/30/2022 revealing a stable ongoing small circumferential pericardial effusion. Patient initially presented to her primary care provider, Dr. Mejia yesterday on 11/16/2022 and reported that she had a loss of consciousness/postural tone episode with preceding symptoms of chest discomfort. Patient was found to be in atrial fibrillation with rapid ventricular response and was therefore referred to the emergency department. At the time my assessment the patient is in room 216. She was comfortable and sleeping soundly. Obtaining additional history is limited due to her baseline dementia. She notes however feeling well at present with no subjective sensation of palpitations. She is on diltiazem 7.5 mg/h. Telemetry reveals ongoing atrial fibrillation however her presenting rate of 130 bpm has improved down to 100 to 116 bpm. The patient had previously followed with Dr Lopez of cardiology in [place]. Per review of the most recent outpatient cardiology progress note dated 02/06/2022, patient has a history of coronary heart disease, most recent cardiac catheterization took place in August, with normal left main, 40% mid LAD, 40% mid circumflex, severe in-stent restenosis of the ostial right coronary artery, 30% in-stent restenosis of the distal right coronary artery prompting PCI, drug-eluting stent to the ostial right coronary artery. Allergies Allergy/AdvReac Type Severity Reaction Status Date / Time pollen extracts Allergy Intermediate ITCHY Verified 11/16/22 19:31 EYES, SNEEZING, CONGESTION lisinopril Allergy Unknown CAN'T Verified 11/16/22 19:31 REMEMBER oxaprozin [From Daypro] Allergy Unknown CAN'T Verified 11/16/22 19:31 REMEMBER Penicillins Allergy Unknown CAN'T Verified 11/16/22 19:31 REMEMBER Home Medications Medication Instructions Recorded Confirmed Type Saccharomyces boulardii 250 mg 250 mg PO QAM 12/06/21 11/16/22 History capsule acetaminophen 325 mg tablet 650 mg PO Q6H PRN PAIN/FEVER 12/06/21 11/16/22 History (Tylenol) allopurinol 100 mg tablet 100 mg PO QAM 12/06/21 11/16/22 History aspirin 81 mg chewable tablet 81 mg PO DAILY 12/06/21 11/16/22 History atorvastatin 10 mg tablet 10 mg PO PM 12/06/21 11/16/22 History carvedilol 3.125 mg tablet 1.5625 mg PO BID 12/06/21 11/16/22 History cholecalciferol (vitamin D3) 25 25 mcg PO Q OTHER DAY 12/06/21 11/16/22 History mcg (1,000 unit) capsule (Vitamin D3) cyanocobalamin (vitamin B-12) 500 1,000 mcg PO QAM 12/06/21 11/16/22 History mcg tablet (Vitamin B-12) diltiazem HCl 120 mg tablet 120 mg PO QAM 12/06/21 11/16/22 History insulin glargine 100 unit/mL (3 22 unit subcut HS 12/06/21 11/16/22 History mL) subcutaneous pen (Lantus Solostar U-100 Insulin) lactulose 10 gram/15 mL oral 30 g PO QAM 12/06/21 11/16/22 History solution yattyyqg-fve-[id number] 5 mg-zeaxanth 1 cap PO QID 12/06/21 11/16/22 History 1 mg-bilberry 7.5 mg-herbal capsule (Macular Health Formula) sodium chloride-aloe vera nasal 1 ea intranasal BID 12/06/21 11/16/22 History swab coQ10 (ubiquinol) 200 mg capsule 200 mg PO DAILY 11/16/22 11/16/22 History donepezil 10 mg tablet 10 mg PO DAILY 11/16/22 11/16/22 History escitalopram oxalate 10 mg tablet 10 mg PO DAILY 11/16/22 11/16/22 History (Lexapro) ezetimibe 10 mg tablet (Zetia) 10 mg PO DAILY 11/16/22 11/16/22 History losartan 25 mg tablet 12.5 mg PO DAILY 11/16/22 11/16/22 History metformin 500 mg tablet,extended 500 mg PO QDD 11/16/22 11/16/22 History release 24 hr Patient History Medical History Coronary artery disease Diabetic peripheral neuropathy Gout Gouty arthropathy History of bladder cancer History of subarachnoid hemorrhage History of traumatic brain injury Hyperlipidemia Intracranial bleed Memory loss Moderate to severe aortic stenosis No significant family history Type 2 diabetes mellitus Surgical History History of coronary artery stent placement No significant past surgical history Social History Smoking Status: Never smoker Second Hand Exposure: No; Tobacco Cessation Education Requested by Patient: No Hx Alcohol Use: No Hx Substance Use: No Preferred Language: Jordanian Communication Ability: Effective Sausage Meat Trimmer Required: No Beliefs That Will Affect Care: None marital status: / Current Living Situation: Spouse Current Living Situation Comment: lives at [facility] current occupational status: retired Other Information That Helps Us Care for You: No Feels Safe at Home: Yes Safety Concerns: Feels Safe At This Time Assistive Devices: Walker Review of Systems Review of Systems: Unobtainable due to cognitive status Physical Exam Constitutional: no acute distress Respiratory: normal respiratory effort, lungs clear to auscultation Cardiovascular: Rate/Rhythm: + tachycardic and + irregularly irregular Heart Sounds: + murmur (3/6 systolic murmur, decreased second heart sound) Extremities: no edema Gastrointestinal (Abdomen): normal bowel sounds, soft, nontender, no hepatosplenomegaly Neurologic: PERRL, EOMI, accommodation nl, no face palsy, no dysarthria Results & Data Vital Signs (Past 12 Hours) Vital Signs Temp Pulse Pulse Resp BP BP BP 11/17/22 08:20 36.7 C 96 H 18 149/88 H 11/17/22 07:38 107 H 11/17/22 00:38 11/17/22 00:30 11/17/22 03:42 36.3 C L 94 H 20 138/69 11/17/22 00:43 106 H 11/17/22 00:30 36.5 C 104 H 20 138/91 11/17/22 00:00 91 H 26 H 144/87 H 11/16/22 23:30 87 26 H 143/82 H 11/16/22 23:00 103 H 31 H 143/73 H 11/16/22 22:31 101 H 27 H 135/90 11/16/22 21:30 96 H 29 H 123/102 H Pulse Ox Pulse Ox O2 Del Method O2 Del Method 11/17/22 08:20 93 Room Air 11/17/22 07:38 11/17/22 00:38 95 Room Air 11/17/22 00:30 Room Air 11/17/22 03:42 95 Room Air 11/17/22 00:43 11/17/22 00:30 95 Room Air 11/17/22 00:00 95 Room Air 11/16/22 23:30 93 Room Air 11/16/22 23:00 94 Room Air 11/16/22 22:31 95 Room Air 11/16/22 21:30 94 Room Air Laboratory Results Cardiac Enzymes 11/16/22 11/17/22 Range/Units 18:26 05:25 AST 32 (13-39) U/L Troponin I High Sens 40.3 H 31.0 H (0-14) pg/ml Coagulation 11/16/22 Range/Units 18:26 PT 10.7 (9.0-12.0) Seconds APTT 25.5 (21.0-31.0) Seconds CBC 11/16/22 11/17/22 Range/Units 18:26 05:25 WBC 9.80 8.64 (4.8-10.8) K/ul RBC 5.02 4.79 (4.20-5.40) M/uL Hgb 13.6 13.2 (12.0-16.0) g/dl Hct 43.6 41.1 (37.0-47.0) % Plt Count 258 199 (130-400) K/uL Neut # (Auto) 7.31 H 6.44 (1.40-6.50) K/uL Lymph # (Auto) 1.36 1.22 (1.2-3.4) K/uL Andrews # (Auto) 0.95 H 0.82 H (0.11-0.59) K/uL Eos # (Auto) 0.04 0.07 (0-0.50) K/uL Baso # (Auto) 0.04 0.03 (0-0.2) K/uL Comprehensive Metabolic Panel 11/16/22 11/17/22 Range/Units 18:26 05:25 Sodium 139 139 (136-145) mmol/L Potassium 4.5 4.2 (3.5-5.1) mmol/L Chloride 102 103 (98-107) mmol/L Carbon Dioxide 31 28 (21-32) mmol/L BUN 31 H 23 (6-23) mg/dl Creatinine 0.92 0.73 (0.6-1.2) mg/dl Glucose 163 H 133 H (70-99(Fasting)) mg/dl Calcium 10.0 9.5 (8.6-10.3) mg/dl AST 32 (13-39) U/L ALT 41 (7-52) U/L Alkaline Phosphatase 93 (34-104) U/L Total Protein 7.2 (6.0-8.3) gm/dl Albumin 4.4 (3.4-5.0) gm/dl Diagnostic Findings EKG performed 11/16/2022 1849 and interpreted independently: Atrial fibrillation at 116 bpm nonspecific repolarization changes. Repeat tracing 11/17/2022 at 6:39 AM, interpret independently: Atrial fibrillation at 99 beats per minute with T wave inversion limited to lead aVL. Summary of radiology report, CT of the head without contrast: Mild cerebral atrophy consistent with chronic small vessel disease Old infarct in the right occipital pole measuring 2.5 cm similar to previous study dated November, No acute large vessel infarct or intracranial hemorrhage observed Summary CTA of the chest performed 11/16/2022 1. The main pulmonary artery is mildly dilated measuring 4.4 cm suggesting some component of ulnar artery hypertension. 2. Heart is mildly enlarged. Severe coronary calcification is present. There is a trace pericardial effusion. 3. Mildly prominent interstitial markings throughout the lungs with scattered linear scarring versus interstitial infiltrates in both lung bases. There is diffuse bronchial wall thickening consistent with bronchitis and/or emphysema. 4. The pulmonary arterial tree is well opacified with contrast. No pulmonary emboli are identified. 5. The thoracic aorta is mildly calcified but nondilated. There is no aneurysm or dissection. Echocardiogram performed 11/17/2022: Atrial fibrillation with mildly low ventricular rate during the study There is severe concentric left ventricular hypertrophy Ejection fraction 60 to 65% Moderate left atrial enlargement Moderate mitral stenosis Severe calcific aortic valve stenosis There is a trace circumferential pericardial effusion. (2) Syncope Syncope type: unspecified Qualified Code(s): R55 - Syncope and collapse
[2022-11-17] MEDS: allopurinoL 100 MG TAB PO SCH (09:31)
[2022-11-17] MEDS: CHOLECALCIFEROL 1,000 UNITS 25 MCG TAB PO SCH (09:31)
[2022-11-17] MEDS: ASPIRIN 81 MG CHEW PO SCH (09:31)
[2022-11-17] MEDS: ESCITALOPRAM OXALATE 10 MG TAB PO SCH (09:31)
[2022-11-17] MEDS: EZETIMIBE 10 MG TABLET PO SCH (09:31)
[2022-11-17] MEDS: SACCHAROMYCES BOULARDII 250 MG CAP PO SCH (09:31)
[2022-11-17] MEDS: LACTULOSE SYRUP 30 GM/45 ML UDP PO SCH ×2 (09:31→09:38)
[2022-11-17] MEDS: CYANOCOBALAMIN (B-12) 500 MCG TABLET PO SCH (09:31)
[2022-11-17] MEDS: DONEPEZIL HCL 10 MG TAB PO SCH (09:31)
[2022-11-17] MEDS: CEROVITE ADV FORMULA TAB PO SCH (09:32)
[2022-11-17] MEDS: SODIUM CHLORIDE 0.65% NA SOLN 45 ML (OCEAN) SCH ×2 (10:22→21:51)
[2022-11-17] MEDS ORDERED: Heparin IV Adult Wt-Based Low-Dose *NO* Bolus Protocol IV SCH (10:36)
[2022-11-17] MEDS: HEPARIN SODIUM/DEXTROSE 25,000 UNITS/500 ML BAG IV SCH (10:57)
[2022-11-17] MEDS: dilTIAZem HCL 125 MG in DEXTROSE 5% 100 ML IV SCH ×2 (11:17→14:21)
[2022-11-17] MEDS ORDERED: MAGNESIUM SULFATE / D5W 1 GM/100 ML BAG IV ONE (12:18)
[2022-11-17] MEDS: METOPROLOL TARTRATE 25 MG TAB PO SCH ×3 (12:46→20:17)
--- NOTE | 2022-11-17 15:31 | Hospitalist Progress Note ---
Date of Service November 17, 2022 Assessment & Plan (1) Atrial fibrillation with RVR: (2) Severe aortic stenosis: (3) Moderate mitral stenosis: (4) Type 2 diabetes mellitus: (5) History of subarachnoid hemorrhage: Plan 87-year-old fall with valvular disease, hypertension, dementia presented to ED with rapid atrial fibrillation. Atrial fibrillation with RVR-CT chest with no PE or pneumonia. Echo with EF 60 to 65%, severe valvular aortic stenosis, moderate MS, severe mitral annular calcification - seen by cardiology. Medication changes noted. Started on IV Cardizem drip, metoprolol 4 times daily. Will hold losartan to allow room for more rate contr olling medications. Also started on heparin drip for anticoagulation given her high [id number] score. Elevated troponin-troponin trend flat. Likely from above. Valvular heart disease-Echo with severe , moderate MS. plan to follow-up with comprehensive valve clinic at [facility] as outpatient on 11/09/2022. Hypomagnesemia-replete, recheck in a.m. Hypertension-BP stable. Medication changes as above Diabetes mellitus type 2-continue insulin, carb controlled diet. Adjust insulin as indicated. Will not be aggressive given her dementia and comorbidities Depression-continue Lexapro Alzheimer's dementia- monitor for delirium History of CAD-troponin trend noted. Continue aspirin statin beta-jocelyn Disposition-continue PCU status. currently on Cardizem drip and heparin drip for A-fib with RVR. DVT prophylaxis-heparin drip Admission and Anticipated Discharge Date Admission Date: November 16, 2022 Subjective Patient was seen and examined bedside. Awake alert, answering simple questions appropriately. States she had chest discomfort earlier but no more. Denies any shortness of breath, lightheadedness, dizziness. No fever or chills. No nausea or vomiting. Review of Systems Review of Systems: All systems reviewed & are unremarkable except as noted in Subjective Physical Exam Physical Exam: General: Lying comfortably in bed, not in distress, on room air HEENT: EOMI, TIMOTHY, MMM Chest: Clear breath sounds bilaterally, no wheezes or crackles CVS: Irregular rate and rhythm, normal heart sounds, no murmur Abdomen: Soft, non tender, not distended, normal bowel sounds Neuro: Awake, alert, conversing well, answering simple questions appropriately Extremities: No cyanosis, clubbing or edema Results & Data Results & Data Vital Signs (Past 12 Hours) Vital Signs Temp Pulse Pulse Resp BP BP Pulse Ox 11/17/22 12:02 36.5 C 99 H 17 136/79 94 11/17/22 08:20 36.7 C 96 H 18 149/88 H 93 11/17/22 07:38 107 H 11/17/22 03:42 36.3 C L 94 H 20 138/69 95 O2 Del Method 11/17/22 12:02 Room Air 11/17/22 08:20 Room Air 11/17/22 07:38 11/17/22 03:42 Room Air Laboratory Results Short CBC 11/16/22 11/17/22 Range/Units 18:26 05:25 WBC 9.80 8.64 (4.8-10.8) K/ul Hgb 13.6 13.2 (12.0-16.0) g/dl Hct 43.6 41.1 (37.0-47.0) % Plt Count 258 199 (130-400) K/uL BMP 11/16/22 11/17/22 18:26 05:25 Sodium 139 139 Potassium 4.5 4.2 Chloride 102 103 Carbon Dioxide 31 28 BUN 31 H 23 Creatinine 0.92 0.73 Glucose 163 H 133 H Calcium 10.0 9.5 Liver Function 11/16/22 Range/Units 18:26 Total Bilirubin 0.4 (0.2-1.0) mg/dl AST 32 (13-39) U/L ALT 41 (7-52) U/L Alkaline Phosphatase 93 (34-104) U/L Albumin 4.4 (3.4-5.0) gm/dl Medications Administered Current Inpatient Medications Acetaminophen (Acetaminophen 325 Mg Tab) 650 mg PO Q4H PRN PRN Reason: Pain or Fever Stop: 12/17/22 00:37 Allopurinol (Allopurinol 100 Mg Tab) 100 mg PO QAM ANTWAN Stop: 12/17/22 08:59 Last Admin: 11/17/22 09:31 Dose: 100 mg Aspirin (Aspirin 81 Mg Chew) 81 mg PO DAILY ANTWAN Stop: 12/17/22 08:59 Last Admin: 11/17/22 09:31 Dose: 81 mg Atorvastatin Calcium (Atorvastatin 10 Mg Tab) 10 mg PO PM ANTWAN Stop: 12/17/22 20:59 Cyanocobalamin (Cyanocobalamin (B-12) 500 Mcg Tablet) 1,000 mcg PO QAM ANTWAN Stop: 12/17/22 08:59 Last Admin: 11/17/22 09:31 Dose: 1,000 mcg Dextrose (Dextrose 50% 50 Ml Syringe) 25 - 50 ml IV UD PRN; Protocol PRN Reason: Hypoglycemia Protocol Stop: 12/17/22 00:37 Dextrose (Dextrose 50% 50 Ml Syringe) 25 - 50 ml IV UD PRN; Protocol PRN Reason: Hypoglycemia Protocol Stop: 12/17/22 07:58 Donepezil HCl (Donepezil Hcl 10 Mg Tab) 10 mg PO DAILY ANTWAN Stop: 12/17/22 08:59 Last Admin: 11/17/22 09:31 Dose: 10 mg Ezetimibe (Ezetimibe 10 Mg Tablet) 10 mg PO DAILY ANTWAN Stop: 12/17/22 08:59 Last Admin: 11/17/22 09:31 Dose: 10 mg Escitalopram Oxalate (Escitalopram Oxalate 10 Mg Tab) 10 mg PO DAILY ANTWAN Stop: 12/17/22 08:59 Last Admin: 11/17/22 09:31 Dose: 10 mg Glucagon (Glucagon For Inj 1 Mg Vial) 1 mg SQ UD PRN; Protocol PRN Reason: Hypoglycemia Protocol Stop: 12/17/22 00:37 Glucagon (Glucagon For Inj 1 Mg Vial) 1 mg SQ UD PRN; Protocol PRN Reason: Hypoglycemia Protocol Stop: 12/17/22 07:58 Glucose (Glucose 10 Tab/Tube) 4 - 8 tab PO UD PRN; Protocol PRN Reason: Hypoglycemia Treatment Stop: 12/17/22 00:37 Glucose (Glucose 40% Gel 15 Gm Tube) 15 - 30 gm PO UD PRN; Protocol PRN Reason: Hypoglycemia Protocol Stop: 12/17/22 00:37 Glucose (Glucose 10 Tab/Tube) 4 - 8 tab PO UD PRN; Protocol PRN Reason: Hypoglycemia Treatment Stop: 12/17/22 07:58 Glucose (Glucose 40% Gel 15 Gm Tube) 15 - 30 gm PO UD PRN; Protocol PRN Reason: Hypoglycemia Protocol Stop: 12/17/22 07:58 Diltiazem HCl 125 mg/ Dextrose 125 mls @ 5 mls/hr IV .Q24H ANTWAN; Protocol Stop: 12/16/22 18:59 Last Admin: 11/17/22 14:21 Dose: Not Given Heparin Sodium/Dextrose (Heparin Sodium/Dextrose) 25,000 units in 500 mls @ 15 mls/hr IV .Q24H [facility]; Protocol Stop: 12/17/22 10:44 Last Admin: 11/17/22 10:57 Dose: 750 units/hr, 15 mls/hr Insulin Aspart (Insulin Aspart Per Unit Charge) 0 units SC ACHS [facility] Stop: 12/17/22 16:29 Insulin Glargine (Lantus Per Unit Charge) 10 units SQ HS [facility] Stop: 12/17/22 20:59 Lactulose (Lactulose Syrup 30 Gm/45 Ml Udp) 30 gm PO QAM ANTWAN Stop: 12/17/22 08:59 Last Admin: 11/17/22 09:38 Dose: Not Given Losartan Potassium (Losartan Potassium 25 Mg Tab) 12.5 mg PO DAILY [facility] Stop: 12/17/22 08:59 Last Admin: 11/17/22 09:31 Dose: 12.5 mg Metoprolol Tartrate (Metoprolol Tartrate 25 Mg Tab) 25 mg PO QID [facility] Stop: 12/17/22 12:59 Last Admin: 11/17/22 12:46 Dose: 25 mg Miscellaneous (Carbohydrates For Hypoglycemia ) 15 - 30 gm PO UD PRN PRN Reason: Hypoglycemia Protocol Stop: 12/17/22 00:37 Miscellaneous (Carbohydrates For Hypoglycemia ) 15 - 30 gm PO UD PRN PRN Reason: Hypoglycemia Protocol Stop: 12/17/22 07:58 Multivitamins/Minerals (Cerovite Adv Formula Tab) 1 tab PO DAILY [facility] Stop: 12/17/22 08:59 Last Admin: 11/17/22 09:32 Dose: 1 tab Nitroglycerin (Nitroglycerin Sl 0.4 Mg/Tab Tab) 0.4 mg SL Q5M PRN PRN Reason: Chest Pain Stop: 12/17/22 00:37 Saccharomyces Boulardii (Saccharomyces Boulardii 250 Mg Cap) 250 mg PO QAM [facility] Stop: 12/17/22 08:59 Last Admin: 11/17/22 09:31 Dose: 250 mg Sodium Chloride (Sodium Chloride 0.65% Na Soln 45 Ml (Pike)) 1 sprays NA BID [facility] Stop: 12/17/22 08:59 Last Admin: 11/17/22 10:22 Dose: Not Given Vitamin D (Cholecalciferol 1,000 Units 25 Mcg Tab) 1,000 units PO Q48H ANTWAN Stop: 12/17/22 08:59 Last Admin: 11/17/22 09:31 Dose: 1,000 units
--- NOTE | 2022-11-17 16:26 | Electrocardiogram Report ---
Test Reason : Blood Pressure : / mmHG Vent. Rate : 099 BPM Atrial Rate : 250 BPM P-R Int : 000 ms QRS Dur : 086 ms QT Int : 326 ms P-R-T Axes : 000 036 098 degrees QTc Int : 418 ms Atrial fibrillation Poor R wave progression, consider anterior OR vs. lead placement vs. LVH Abnormal ECG When compared with ECG of 16-NOV-2022 18:49, No significant change was found Confirmed by Ruddy Marsh ([id number]) on 11/17/2022 4:26:08 PM Referred By: Ravin Mejia Confirmed By:Cristian Marsh
[2022-11-17 17:23] LABS: Partial Thromboplastin Ratio 1.2; Partial Thromboplastin Time 32.8 Seconds (21.0-31.0)
[2022-11-17] MEDS ORDERED: HEPARIN SOD (PORCINE) 1000 UNIT/ML IV ONE (17:30)
[2022-11-17 17:41] LABS: Appearance Urine Cloudy (Clear); Bacteria Urine Automated Negative (Negative); Bilirubin Urine Negative (Negative); Blood Urine Negative (Negative); Cast Urine Automated 0 /lpf (0-5); Color Urine Yellow; Epithelial Cell Urine Auto 0-5 /lpf (0-5); Glucose Urine UA Negative (Negative); Ketones Urine Negative (Negative); Leukocyte Esterase Urine Negative (Negative); Nitrite Urine Negative (Negative); Protein Urine Negative (Negative); Specific Gravity Urine 1.018 (1.000-1.030); Urobilinogen Urine Negative (Negative); pH Urine 7.5 (4.5-7.5)
[2022-11-17 18:16] LABS: RBC Urine Automated 0-4 /hpf (0-4)
[2022-11-17] MEDS: ATORVASTATIN 10 MG TAB PO SCH (20:17)
[2022-11-17] MEDS: LANTUS PER UNIT CHARGE SQ SCH (20:17)
[2022-11-17 23:59] LABS: Partial Thromboplastin Ratio 1.4
[2022-11-18 06:37] LABS: Mean Corpuscular Hemoglobin 27.3 pg (25.0-34.0); Mean Corpuscular Hgb Conc 31.7 g/dL (32.0-36.0); Mean Corpuscular Volume 86.1 fL (80.0-100.0); Mean Platelet Volume 10.2 fL (9.4-12.4); Platelet Count 173 K/uL (130-400); RDW Coefficient of Variation 15.2 % (11.5-14.5); RDW Standard Deviation 48.1 fL (36.4-46.3); Red Blood Count 4.76 M/uL (4.20-5.40); White Blood Count 6.56 K/ul (4.8-10.8)
[2022-11-18 06:48] LABS: BUN Creatinine Ratio 32.5 (10-20); Calcium 9.6 mg/dl (8.6-10.3); Creatinine Clr Calc Pharmacy 48.8 ml/min; Est GFR (African American) 74.5 ml/min; Est GFR (Non-African American) 64.3 ml/min; Magnesium 1.8 mg/dl (1.7-2.4); Potassium 4.2 mmol/L (3.5-5.1)
[2022-11-18 06:59] LABS: Partial Thromboplastin Ratio 1.4; Partial Thromboplastin Time 39.3 Seconds (21.0-31.0)
--- NOTE | 2022-11-18 07:01 | Electrocardiogram Report ---
Test Reason : Blood Pressure : / mmHG Vent. Rate : 069 BPM Atrial Rate : 069 BPM P-R Int : 178 ms QRS Dur : 086 ms QT Int : 428 ms P-R-T Axes : 003 005 093 degrees QTc Int : 458 ms Normal sinus rhythm Possible Left atrial enlargement Abnormal ECG When compared with ECG of 17-NOV-2022 06:39, Sinus rhythm has replaced Atrial fibrillation Confirmed by Ruddy Marsh ([id number]) on 11/18/2022 7:00:59 AM Referred By: Ravin Mejia Confirmed By:Cristian Marsh
--- NOTE | 2022-11-18 07:10 | Electrocardiogram Report ---
Test Reason : Blood Pressure : / mmHG Vent. Rate : 063 BPM Atrial Rate : 063 BPM P-R Int : 184 ms QRS Dur : 088 ms QT Int : 458 ms P-R-T Axes : 018 027 086 degrees QTc Int : 468 ms Normal sinus rhythm Nonspecific ST abnormality Abnormal ECG When compared with ECG of 17-NOV-2022 17:57, (unconfirmed) No significant change was found Confirmed by Ruddy Marsh ([id number] on 11/18/2022 7:10:06 AM Referred By: Ravin Mejia Confirmed By:Cristian Marsh
[2022-11-18] MEDS: CEROVITE ADV FORMULA TAB PO SCH (08:09)
[2022-11-18] MEDS: ESCITALOPRAM OXALATE 10 MG TAB PO SCH (08:09)
[2022-11-18] MEDS: ASPIRIN 81 MG CHEW PO SCH (08:09)
[2022-11-18] MEDS: DONEPEZIL HCL 10 MG TAB PO SCH (08:09)
[2022-11-18] MEDS: EZETIMIBE 10 MG TABLET PO SCH (08:09)
[2022-11-18] MEDS: SACCHAROMYCES BOULARDII 250 MG CAP PO SCH (08:09)
[2022-11-18] MEDS: METOPROLOL TARTRATE 25 MG TAB PO SCH ×3 (08:09→20:38)
[2022-11-18] MEDS: allopurinoL 100 MG TAB PO SCH (08:10)
[2022-11-18] MEDS: LACTULOSE SYRUP 30 GM/45 ML UDP PO SCH (08:10)
[2022-11-18] MEDS: SODIUM CHLORIDE 0.65% NA SOLN 45 ML (OCEAN) SCH ×2 (08:10→20:39)
[2022-11-18] MEDS: INSULIN ASPART PER UNIT CHARGE SC SCH ×4 (08:10→20:38)
[2022-11-18] MEDS: CYANOCOBALAMIN (B-12) 500 MCG TABLET PO SCH (08:10)
[2022-11-18 13:43] LABS: Partial Thromboplastin Ratio 1.5
[2022-11-18 13:45] LABS: Partial Thromboplastin Time 40.9 Seconds (21.0-31.0)
--- NOTE | 2022-11-18 14:56 | Hospitalist Progress Note ---
Date of Service November 18, 2022 Assessment & Plan (1) Atrial fibrillation with RVR: Plan: 87-year-old fall with valvular disease, hypertension, dementia presented to ED with rapid atrial fibrillation. Atrial fibrillation with RVR-CT chest with no PE or pneumonia. Echo with EF 60 to 65%, severe valvular aortic stenosis, moderate MS, severe mitral annular calcification Appreciate cardiology input and recommendation Medication changes noted. Started on IV Cardizem drip, metoprolol 4 times daily. Will hold losartan to allow room for more rate controlling medications. Also started on heparin drip for anticoagulation given her high [id number] score. Heart rate is controlled and reverted back to sinus rhythm Beta-jocelyn has been added Continue with the current medications Dementia Alzheimer's dementia- monitor for delirium Remains pleasantly confused without any acute delirium (2) Severe aortic stenosis: Plan: Has severe aortic stenosis May be the cause for the chest pain (3) Moderate mitral stenosis: (4) Type 2 diabetes mellitus: Plan: Diabetes mellitus type 2-continue insulin, carb controlled diet. Adjust insulin as indicated. Will not be aggressive given her dementia and comorbidities (5) History of subarachnoid hemorrhage: Plan Other chronic medical conditions are as follows: Hypertension-BP stable. Medication changes as above Depression-continue Lexapro History of CAD-troponin trend noted. Continue aspirin statin beta-jocelyn DVT prophylaxis-heparin drip CODE STATUS Full Admission and Anticipated Discharge Date Admission Date: November 16, 2022 Subjective 11/18/2022 The patient was seen and examined in telemetry unit She is pleasantly confused without any acute distress at rest Denies any symptomsno chest pain, palpitation, shortness of breath, abdominal pain, nausea and or vomiting Review of Systems Review of Systems: All systems reviewed and are unremarkable except as noted below Neurologic: Pleasantly confused and generally weak Physical Exam Physical Exam: Lying in bed comfortably Constitutional: well developed, well nourished and + obese; not ill appearing Eyes: PERRL, conjunctivae normal, anicteric sclerae ENMT: external ear and nose normal, oropharynx normal Neck: trachea midline, no thyromegaly Respiratory: no respiratory distress Auscultation: + diminished lung sounds and + crackles (Minimal crackles at the bases) Cardiovascular: Rate/Rhythm: regular rate and regular rhythm; not tachycardic Heart Sounds: normal S1, normal S2 and + murmur (2/6 ESM over precordium) Gastrointestinal (Abdomen): Inspection/Auscultation: normal bowel sounds; abdomen not distended Percussion/Palpation: abdomen soft; abdomen nontender Musculoskeletal: No acute arthritis involving any of the joint Neurologic: Alert and awake. Pleasantly confused Lymphatic: no cervical or axillary lymphadenopathy Results & Data Results & Data Vital Signs (Past 12 Hours) Vital Signs Temp Pulse Pulse Resp BP BP Pulse Ox 11/18/22 11:21 36.7 C 63 20 146/89 H 96 11/18/22 07:58 65 11/18/22 07:11 36.6 C 68 19 177/99 H 96 11/18/22 03:15 36.7 C 64 16 146/72 H 95 O2 Del Method 11/18/22 11:21 Room Air 11/18/22 07:58 11/18/22 07:11 Room Air 11/18/22 03:15 Room Air Laboratory Results Short CBC 11/18/22 Range/Units 06:09 WBC 6.56 (4.8-10.8) K/ul Hgb 13.0 (12.0-16.0) g/dl Hct 41.0 (37.0-47.0) % Plt Count 173 (130-400) K/uL BMP 11/18/22 06:09 Sodium 138 Potassium 4.2 Chloride 102 Carbon Dioxide 29 BUN 27 H Creatinine 0.83 Glucose 153 H Calcium 9.6 Urine 11/17/22 Range/Units 17:10 Urine Color Yellow Urine Appearance Cloudy A (Clear) Urine pH 7.5 (4.5-7.5) Ur Specific [place] 1.018 (1.000-1.030) Urine Protein Negative (Negative) Urine Glucose (UA) Negative (Negative) Medications Administered Current Inpatient Medications Acetaminophen (Acetaminophen 325 Mg Tab) 650 mg PO Q4H PRN PRN Reason: Pain or Fever Stop: 12/17/22 00:37 Last Admin: 11/18/22 11:19 Dose: 650 mg Allopurinol (Allopurinol 100 Mg Tab) 100 mg PO QAM [facility] Stop: 12/17/22 08:59 Last Admin: 11/18/22 08:10 Dose: 100 mg Aspirin (Aspirin 81 Mg Chew) 81 mg PO DAILY [facility] Stop: 12/17/22 08:59 Last Admin: 11/18/22 08:09 Dose: 81 mg Atorvastatin Calcium (Atorvastatin 10 Mg Tab) 10 mg PO PM [facility] Stop: 12/17/22 20:59 Last Admin: 11/17/22 20:17 Dose: 10 mg Cyanocobalamin (Cyanocobalamin (B-12) 500 Mcg Tablet) 1,000 mcg PO QAM [facility] Stop: 12/17/22 08:59 Last Admin: 11/18/22 08:10 Dose: 1,000 mcg Dextrose (Dextrose 50% 50 Ml Syringe) 25 - 50 ml IV UD PRN; Protocol PRN Reason: Hypoglycemia Protocol Stop: 12/17/22 00:37 Dextrose (Dextrose 50% 50 Ml Syringe) 25 - 50 ml IV UD PRN; Protocol PRN Reason: Hypoglycemia Protocol Stop: 12/17/22 07:58 Donepezil HCl (Donepezil Hcl 10 Mg Tab) 10 mg PO DAILY [facility] Stop: 12/17/22 08:59 Last Admin: 11/18/22 08:09 Dose: 10 mg Ezetimibe (Ezetimibe 10 Mg Tablet) 10 mg PO DAILY [facility] Stop: 12/17/22 08:59 Last Admin: 11/18/22 08:09 Dose: 10 mg Escitalopram Oxalate (Escitalopram Oxalate 10 Mg Tab) 10 mg PO DAILY [facility] Stop: 12/17/22 08:59 Last Admin: 11/18/22 08:09 Dose: 10 mg Glucagon (Glucagon For Inj 1 Mg Vial) 1 mg SQ UD PRN; Protocol PRN Reason: Hypoglycemia Protocol Stop: 12/17/22 00:37 Glucagon (Glucagon For Inj 1 Mg Vial) 1 mg SQ UD PRN; Protocol PRN Reason: Hypoglycemia Protocol Stop: 12/17/22 07:58 Glucose (Glucose 10 Tab/Tube) 4 - 8 tab PO UD PRN; Protocol PRN Reason: Hypoglycemia Treatment Stop: 12/17/22 00:37 Glucose (Glucose 40% Gel 15 Gm Tube) 15 - 30 gm PO UD PRN; Protocol PRN Reason: Hypoglycemia Protocol Stop: 12/17/22 00:37 Glucose (Glucose 10 Tab/Tube) 4 - 8 tab PO UD PRN; Protocol PRN Reason: Hypoglycemia Treatment Stop: 12/17/22 07:58 Glucose (Glucose 40% Gel 15 Gm Tube) 15 - 30 gm PO UD PRN; Protocol PRN Reason: Hypoglycemia Protocol Stop: 12/17/22 07:58 Diltiazem HCl 125 mg/ Dextrose 125 mls @ 0 mls/hr IV .Q0M [facility]; Protocol Stop: 12/16/22 18:59 Last Titration: 11/17/22 18:25 Dose: 0 mg/hr, 0 mls/hr Heparin Sodium/Dextrose (Heparin Sodium/Dextrose) 25,000 units in 500 mls @ 19 mls/hr IV .Q24H [facility]; Protocol Stop: 12/17/22 10:44 Last Titration: 11/18/22 07:04 Dose: 950 units/hr, 19 mls/hr Insulin Aspart (Insulin Aspart Per Unit Charge) 0 units SC ACHS [facility] Stop: 12/17/22 16:29 Last Admin: 11/18/22 12:00 Dose: 5 units Insulin Glargine (Lantus Per Unit Charge) 10 units SQ HS [facility] Stop: 12/17/22 20:59 Last Admin: 11/17/22 20:17 Dose: 10 units Lactulose (Lactulose Syrup 30 Gm/45 Ml Udp) 30 gm PO QAM [facility] Stop: 12/17/22 08:59 Last Admin: 11/18/22 08:10 Dose: 30 gm Losartan Potassium (Losartan Potassium 25 Mg Tab) 12.5 mg PO DAILY [facility] Stop: 12/17/22 08:59 Last Admin: 11/17/22 09:31 Dose: 12.5 mg Metoprolol Tartrate (Metoprolol Tartrate 25 Mg Tab) 25 mg PO QID [facility] Stop: 12/17/22 12:59 Last Admin: 11/18/22 13:56 Dose: 25 mg Miscellaneous (Carbohydrates For Hypoglycemia ) 15 - 30 gm PO UD PRN PRN Reason: Hypoglycemia Protocol Stop: 12/17/22 00:37 Miscellaneous (Carbohydrates For Hypoglycemia ) 15 - 30 gm PO UD PRN PRN Reason: Hypoglycemia Protocol Stop: 12/17/22 07:58 Multivitamins/Minerals (Cerovite Adv Formula Tab) 1 tab PO DAILY [facility] Stop: 12/17/22 08:59 Last Admin: 11/18/22 08:09 Dose: 1 tab Nitroglycerin (Nitroglycerin Sl 0.4 Mg/Tab Tab) 0.4 mg SL Q5M PRN PRN Reason: Chest Pain Stop: 12/17/22 00:37 Saccharomyces Boulardii (Saccharomyces Boulardii 250 Mg Cap) 250 mg PO QAM [facility] Stop: 12/17/22 08:59 Last Admin: 11/18/22 08:09 Dose: 250 mg Sodium Chloride (Sodium Chloride 0.65% Na Soln 45 Ml ([place])) 1 sprays NA BID [facility] Stop: 12/17/22 08:59 Last Admin: 11/18/22 08:10 Dose: 1 sprays Vitamin D (Cholecalciferol 1,000 Units 25 Mcg Tab) 1,000 units PO Q48H [facility] Stop: 12/17/22 08:59 Last Admin: 11/17/22 09:31 Dose: 1,000 units
--- NOTE | 2022-11-18 15:24 | Cardiology Progress Note ---
Date of Service November 18, 2022 Assessment & Plan (1) Atrial fibrillation with RVR: (2) Syncope: (3) Severe aortic stenosis: (4) Moderate mitral stenosis: Plan 87-year-old female with a known history of dementia, severe stenosis, moderate mitral stenosis, coronary heart disease presents with an episode of syncope, details not well known, vague chest discomfort, and newly recognized atrial fibrillation with rapid ventricular spots. High-sensitivity troponin measurements mildly elevated on presentation and trending downward with sequential measurements of 40.3, 31, and 28.7 PG per mL. Patient with history of multiple falls. In May, she was found to have multiple subarachnoid hemorrhages after a fall with head trauma. She is likely not a good candidate for long-term anticoagulation, however she is considered to be at a very high risk of stroke in the setting of atrial fibrillation with [id number] score of 8 (female, HTN, age >75, past stroke, CAD, DM2). CT is this admission reassuring with no acute hemorrhage although it does reveal a previous infarct. The IV diltiazem infusion order has been discontinued. Infusion stopped yesterday per verbal order shortly after she converted to sinus rhythm. Reduce Toprol tartrate from 25 mg 4 times daily to 25 mg twice daily. Add amiodarone for rhythm control strategy, 200 mg x 1 now, and the 200 mg 2 times per day with meals to start 11/19/2022. As previously noted, patient at high risk for cardioembolic stroke in the setting of atrial fibrillation especially given underlying mitral stenosis, but also has a history of falls, past subarachnoid hemorrhage in 2020, and is at a very high risk of falling. Perhaps rhythm control strategy with amiodarone if effective, could reduce the need for her to be on risky chronic anticoagulation. Continue heparin infusion in the short-term while her atrial fibrillation burden is being determined. Patient already has a consultation planned with the comprehensive valve clinic at [facility] this week. Given her overall frailty, ongoing conserv ative management may be best approach but the patient and her daughter were interested in at least obtaining information about TAVR. Admission and Anticipated Discharge Date Admission Date: November 16, 2022 Subjective Patient seen in cardiology follow-up. Denies subjective chest pain or shortness of breath. Per review of telemetry, on 11/17/2022 at 1754 the patient converted from atrial fibrillation to sinus rhythm without prolonged conversion pause. She has remained in sinus rhythm in the interim with rates currently in the 60s. Heparin continued. Diltiazem infusion discontinued shortly after conversion. Physical Exam Constitutional: no acute distress Respiratory: normal respiratory effort, lungs clear to auscultation Cardiovascular: Rate/Rhythm: + tachycardic and + irregularly irregular Heart Sounds: + murmur (3/6 systolic murmur, decreased second heart sound) Extremities: no edema Gastrointestinal (Abdomen): normal bowel sounds, soft, nontender, no hepatosplenomegaly Neurologic: PERRL, EOMI, accommodation nl, no face palsy, no dysarthria Results & Data Vital Signs (Past 12 Hours) Vital Signs Temp Pulse Pulse Resp BP BP Pulse Ox 11/18/22 11:21 36.7 C 63 20 146/89 H 96 11/18/22 07:58 65 11/18/22 07:11 36.6 C 68 19 177/99 H 96 O2 Del Method 11/18/22 11:21 Room Air 11/18/22 07:58 11/18/22 07:11 Room Air Laboratory Results Cardiac Enzymes 11/17/22 Range/Units 16:34 Troponin I High Sens 26.4 H (0-14) pg/ml Coagulation 11/17/22 11/17/22 11/18/22 Range/Units 16:34 23:06 06:09 APTT 32.8 H 39.0 H 39.3 H (21.0-31.0) Seconds 11/18/22 Range/Units 12:49 APTT 40.9 H* (21.0-31.0) Seconds CBC 11/18/22 Range/Units 06:09 WBC 6.56 (4.8-10.8) K/ul RBC 4.76 (4.20-5.40) M/uL Hgb 13.0 (12.0-16.0) g/dl Hct 41.0 (37.0-47.0) % Plt Count 173 (130-400) K/uL Comprehensive Metabolic Panel 11/18/22 Range/Units 06:09 Sodium 138 (136-145) mmol/L Potassium 4.2 (3.5-5.1) mmol/L Chloride 102 (98-107) mmol/L Carbon Dioxide 29 (21-32) mmol/L BUN 27 H (6-23) mg/dl Creatinine 0.83 (0.6-1.2) mg/dl Glucose 153 H (70-99(Fasting)) mg/dl Calcium 9.6 (8.6-10.3) mg/dl (2) Syncope Syncope type: unspecified Qualified Code(s): R55 - Syncope and collapse
[2022-11-18] MEDS ORDERED: AMIODARONE 200 MG TAB PO ONE (15:30)
[2022-11-18] MEDS: HEPARIN SODIUM/DEXTROSE 25,000 UNITS/500 ML BAG IV SCH (16:29)
[2022-11-18] MEDS: LANTUS PER UNIT CHARGE SQ SCH (20:37)
[2022-11-18] MEDS: ATORVASTATIN 10 MG TAB PO SCH (20:38)
[2022-11-19 05:57] LABS: Basophils # (auto) 0.03 K/uL (0-0.2); Basophils % (auto) 0.5 %; Eosinophils # (auto) 0.19 K/uL (0-0.50); Hematocrit (blood only) 41.5 % (37.0-47.0); Hemoglobin 13.3 g/dl (12.0-16.0); Immature Granulocytes # (auto) 0.05 K/uL (0.01-0.20); Immature Granulocytes % (auto) 0.8 %; Lymphocytes # (auto) 0.94 K/uL (1.2-3.4); Lymphocytes % (auto) 14.8 %; Mean Corpuscular Hemoglobin 27.7 pg (25.0-34.0); Mean Corpuscular Volume 86.3 fL (80.0-100.0); Mean Platelet Volume 10.1 fL (9.4-12.4); Monocytes # (auto) 0.51 K/uL (0.11-0.59); Neutrophils # (auto) 4.64 K/uL (1.40-6.50); Neutrophils % (auto) 72.9 %; Platelet Count 188 K/uL (130-400); RDW Coefficient of Variation 15.1 % (11.5-14.5); RDW Standard Deviation 47.8 fL (36.4-46.3); Red Blood Count 4.81 M/uL (4.20-5.40); White Blood Count 6.36 K/ul (4.8-10.8)
[2022-11-19 06:13] LABS: BUN Creatinine Ratio 28.7 (10-20); Calcium 9.3 mg/dl (8.6-10.3); Creatinine Clr Calc Pharmacy 42.9 ml/min; Est GFR (African American) 64.1 ml/min; Est GFR (Non-African American) 55.3 ml/min; Magnesium 1.8 mg/dl (1.7-2.4); Potassium 4.2 mmol/L (3.5-5.1)
[2022-11-19 06:55] LABS: Partial Thromboplastin Ratio 1.5
[2022-11-19 06:58] LABS: Partial Thromboplastin Time 42.2 Seconds (21.0-31.0)
[2022-11-19] MEDS: INSULIN ASPART PER UNIT CHARGE SC SCH ×4 (08:41→21:31)
[2022-11-19] MEDS: METOPROLOL TARTRATE 25 MG TAB PO SCH ×2 (08:42→21:32)
[2022-11-19] MEDS: allopurinoL 100 MG TAB PO SCH (08:42)
[2022-11-19] MEDS: ESCITALOPRAM OXALATE 10 MG TAB PO SCH (08:42)
[2022-11-19] MEDS: SACCHAROMYCES BOULARDII 250 MG CAP PO SCH (08:42)
[2022-11-19] MEDS: CYANOCOBALAMIN (B-12) 500 MCG TABLET PO SCH (08:42)
[2022-11-19] MEDS: AMIODARONE 200 MG TAB PO SCH ×2 (08:42→18:16)
[2022-11-19] MEDS: LACTULOSE SYRUP 30 GM/45 ML UDP PO SCH (08:43)
[2022-11-19] MEDS: ASPIRIN 81 MG CHEW PO SCH (08:43)
[2022-11-19] MEDS: CEROVITE ADV FORMULA TAB PO SCH (08:43)
[2022-11-19] MEDS: CHOLECALCIFEROL 1,000 UNITS 25 MCG TAB PO SCH (08:43)
[2022-11-19] MEDS: EZETIMIBE 10 MG TABLET PO SCH (08:43)
[2022-11-19] MEDS: DONEPEZIL HCL 10 MG TAB PO SCH (08:43)
[2022-11-19] MEDS: SODIUM CHLORIDE 0.65% NA SOLN 45 ML (OCEAN) SCH ×2 (08:43→21:32)
--- NOTE | 2022-11-19 12:06 | Electrocardiogram Report ---
Test Reason : Blood Pressure : / mmHG Vent. Rate : 060 BPM Atrial Rate : 060 BPM P-R Int : 192 ms QRS Dur : 086 ms QT Int : 464 ms P-R-T Axes : 030 025 093 degrees QTc Int : 464 ms Normal sinus rhythm Nonspecific ST and T wave abnormality Abnormal ECG When compared with ECG of 18-NOV-2022 05:26, Nonspecific T wave abnormality now evident in Lateral leads Confirmed by Kirk Chavez [id number]) on 11/19/2022 12:05:51 PM Referred By: Ravin Mejia Confirmed By:Kirk Chavez
--- NOTE | 2022-11-19 13:37 | Hospitalist Progress Note ---
Date of Service November 19, 2022 Assessment & Plan (1) Atrial fibrillation with RVR: Plan: 87-year-old fall with valvular disease, hypertension, dementia presented to ED with rapid atrial fibrillation. Atrial fibrillation with RVR-CT chest with no PE or pneumonia. Echo with EF 60 to 65%, severe valvular aortic stenosis, moderate MS, severe mitral annular calcification Appreciate cardiology input and recommendation Medication changes noted. Started on IV Cardizem drip, metoprolol 4 times daily. Will hold losartan to allow room for more rate controlling medications. Also started on heparin drip for anticoagulation given her high [id number] score. Heart rate is controlled and reverted back to sinus rhythm Beta-jocelyn has been added Continue with the current medications Heart rate is controlled and without any cardiac symptoms and the patient is ready to be discharged No long-term anticoagulation PT and OT evaluation prior to discharge Dementia Alzheimer's dementia- monitor for delirium Remains pleasantly confused without any acute delirium Can go back to [place] (2) Severe aortic stenosis: Plan: Has severe aortic stenosis May be the cause for the chest pain (3) Moderate mitral stenosis: (4) Type 2 diabetes mellitus: Plan: Diabetes mellitus type 2-continue insulin, carb controlled diet. Adjust insulin as indicated. Will not be aggressive given her dementia and comorbidities (5) History of subarachnoid hemorrhage: Plan Other chronic medical conditions are as follows: Hypertension-BP stable. Medication changes as above Depression-continue Lexapro History of CAD-troponin trend noted. Continue aspirin statin beta-jocelyn DVT prophylaxis-heparin drip CODE STATUS Full Admission and Anticipated Discharge Date Admission Date: November 16, 2022 Subjective 11/18/2022 The patient was seen and examined in telemetry unit She is pleasantly confused without any acute distress at rest Denies any symptomsno chest pain, palpitation, shortness of breath, abdominal pain, nausea and or vomiting 11/19/2022 The patient was seen and examined in telemetry unit She remains pleasantly confused Denies any acute symptoms Review of Systems Review of Systems: All systems reviewed and are unremarkable except as noted below Neurologic: Pleasantly confused and generally weak Physical Exam Physical Exam: Lying in bed comfortably Constitutional: well developed, well nourished and + obese; not ill appearing Eyes: PERRL, conjunctivae normal, anicteric sclerae ENMT: external ear and nose normal, oropharynx normal Neck: trachea midline, no thyromegaly Respiratory: no respiratory distress Auscultation: + diminished lung sounds and + crackles (Minimal crackles at the bases) Cardiovascular: Rate/Rhythm: regular rate and regular rhythm; not tachycardic Heart Sounds: normal S1, normal S2 and + murmur (2/6 ESM over precordium) Gastrointestinal (Abdomen): Inspection/Auscultation: normal bowel sounds; abdomen not distended Percussion/Palpation: abdomen soft; abdomen nontender Musculoskeletal: No acute arthritis involving any joint Neurologic: Alert and awake. Pleasantly confused Lymphatic: no cervical or axillary lymphadenopathy Results & Data Results & Data Vital Signs (Past 12 Hours) Vital Signs Temp Pulse Pulse Resp BP Pulse Ox O2 Del Method 11/19/22 11:59 69 11/19/22 11:54 36.7 C 64 18 129/84 97 Room Air 11/19/22 07:28 36.9 C 62 18 133/76 93 Room Air 11/19/22 03:59 36.6 C 64 16 174/94 H 93 Room Air Laboratory Results Short CBC 11/19/22 Range/Units 05:26 WBC 6.36 (4.8-10.8) K/ul Hgb 13.3 (12.0-16.0) g/dl Hct 41.5 (37.0-47.0) % Plt Count 188 (130-400) K/uL [facility] 11/19/22 05:26 Sodium 138 Potassium 4.2 Chloride 102 Carbon Dioxide 30 BUN 27 H Creatinine 0.94 Glucose 147 H Calcium 9.3 Medications Administered Current Inpatient Medications Acetaminophen (Acetaminophen 325 Mg Tab) 650 mg PO Q4H PRN PRN Reason: Pain or Fever Stop: 12/17/22 00:37 Last Admin: 11/18/22 11:19 Dose: 650 mg Allopurinol (Allopurinol 100 Mg Tab) 100 mg PO QAM [facility] Stop: 12/17/22 08:59 Last Admin: 11/19/22 08:42 Dose: 100 mg Amiodarone HCl (Amiodarone 200 Mg Tab) 200 mg PO BIDM [facility] Stop: 12/19/22 07:59 Last Admin: 11/19/22 08:42 Dose: 200 mg Aspirin (Aspirin 81 Mg Chew) 81 mg PO DAILY [facility] Stop: 12/17/22 08:59 Last Admin: 11/19/22 08:43 Dose: 81 mg Atorvastatin Calcium (Atorvastatin 10 Mg Tab) 10 mg PO PM [facility] Stop: 12/17/22 20:59 Last Admin: 11/18/22 20:38 Dose: 10 mg Cyanocobalamin (Cyanocobalamin (B-12) 500 Mcg Tablet) 1,000 mcg PO QAM [facility] Stop: 12/17/22 08:59 Last Admin: 11/19/22 08:42 Dose: 1,000 mcg Dextrose (Dextrose 50% 50 Ml Syringe) 25 - 50 ml IV UD PRN; Protocol PRN Reason: Hypoglycemia Protocol Stop: 12/17/22 07:58 Donepezil HCl (Donepezil Hcl 10 Mg Tab) 10 mg PO DAILY [facility] Stop: 12/17/22 08:59 Last Admin: 11/19/22 08:43 Dose: 10 mg Ezetimibe (Ezetimibe 10 Mg Tablet) 10 mg PO DAILY [facility] Stop: 12/17/22 08:59 Last Admin: 11/19/22 08:43 Dose: 10 mg Escitalopram Oxalate (Escitalopram Oxalate 10 Mg Tab) 10 mg PO DAILY [facility] Stop: 12/17/22 08:59 Last Admin: 11/19/22 08:42 Dose: 10 mg Glucagon (Glucagon For Inj 1 Mg Vial) 1 mg SQ UD PRN; Protocol PRN Reason: Hypoglycemia Protocol Stop: 12/17/22 07:58 Glucose (Glucose 10 Tab/Tube) 4 - 8 tab PO UD PRN; Protocol PRN Reason: Hypoglycemia Treatment Stop: 12/17/22 07:58 Glucose (Glucose 40% Gel 15 Gm Tube) 15 - 30 gm PO UD PRN; Protocol PRN Reason: Hypoglycemia Protocol Stop: 12/17/22 07:58 Insulin Aspart (Insulin Aspart Per Unit Charge) 0 units SC ACHS [facility] Stop: 12/17/22 16:29 Last Admin: 11/19/22 12:19 Dose: 5 units Insulin Glargine (Lantus Per Unit Charge) 10 units SQ HS [facility] Stop: 12/17/22 20:59 Last Admin: 11/18/22 20:37 Dose: 10 units Lactulose (Lactulose Syrup 30 Gm/45 Ml Udp) 30 gm PO QAM [facility] Stop: 12/17/22 08:59 Last Admin: 11/19/22 08:43 Dose: 30 gm Metoprolol Tartrate (Metoprolol Tartrate 25 Mg Tab) 25 mg PO BID [facility] Stop: 12/18/22 20:59 Last Admin: 11/19/22 08:42 Dose: 25 mg Miscellaneous (Carbohydrates For Hypoglycemia ) 15 - 30 gm PO UD PRN PRN Reason: Hypoglycemia Protocol Stop: 12/17/22 07:58 Multivitamins/Minerals (Cerovite Adv Formula Tab) 1 tab PO DAILY [facility] Stop: 12/17/22 08:59 Last Admin: 11/19/22 08:43 Dose: 1 tab Nitroglycerin (Nitroglycerin Sl 0.4 Mg/Tab Tab) 0.4 mg SL Q5M PRN PRN Reason: Chest Pain Stop: 12/17/22 00:37 Last Admin: 11/18/22 22:58 Dose: 0.4 mg Saccharomyces Boulardii (Saccharomyces Boulardii 250 Mg Cap) 250 mg PO QAM [facility] Stop: 12/17/22 08:59 Last Admin: 11/19/22 08:42 Dose: 250 mg Sodium Chloride (Sodium Chloride 0.65% Na Soln 45 Ml ([place])) 1 sprays NA BID [facility] Stop: 12/17/22 08:59 Last Admin: 11/19/22 08:43 Dose: 1 sprays Vitamin D (Cholecalciferol 1,000 Units 25 Mcg Tab) 1,000 units PO Q48H [facility] Stop: 12/17/22 08:59 Last Admin: 11/19/22 08:43 Dose: 1,000 units
--- NOTE | 2022-11-19 14:46 | Cardiology Progress Note ---
Date of Service November 19, 2022 Assessment & Plan (1) Atrial fibrillation with RVR: (2) Syncope: (3) Severe aortic stenosis: (4) Moderate mitral stenosis: Plan 87-year-old female with a known history of dementia, severe stenosis, moderate mitral stenosis, coronary heart disease presents with an episode of syncope, details not well known, vague chest discomfort, and newly recognized atrial fibrillation with rapid ventricular spots. High-sensitivity troponin measurements mildly elevated on presentation and trending downward with sequential measurements of 40.3, 31, and 28.7 PG per mL. Patient with history of multiple falls. In May, she was found to have multiple subarachnoid hemorrhages after a fall with head trauma. She is likely not a good candidate for long-term anticoagulation, however she is considered to be at a very high risk of stroke in the setting of atrial fibrillation with [id number] score of 8 (female, HTN, age >75, past stroke, CAD, DM2). CT is this admission reassuring with no acute hemorrhage although it does reveal a previous infarct. As previously noted, patient at high risk for cardioembolic stroke in the setting of atrial fibrillation especially given underlying mitral stenosis, but also has a history of falls, past subarachnoid hemorrhage in 2020, and is at a very high risk of falling. Perhaps rhythm control strategy with amiodarone if effective, could reduce the need for her to be on risky chronic anticoagulation. Medication therapy: Continue amiodarone 200 mg twice daily (added on 11/18/2022) Continue metoprolol tartrate 25 mg twice daily (replaces prior to hospital treatment with carvedilol) Prior to hospital treatment with losartan remains on hold and will be resumed with next dose on 11/20. Discontinue heparin infusion. As previously noted poor skilled nursing anticoagulation candidate with history of falls and SAH. Patient already has a consultation planned with the comprehensive valve clinic at [facility] this week. Given her overall frailty, ongoing conservative management may be best approach but the patient and her daughter were interested in at least obtaining information about TAVR. Admission and Anticipated Discharge Date Admission Date: November 16, 2022 Subjective Patient seen in cardiology follow-up. Denies symptoms. Chest discomfort or shortness of breath. Telemetry reveals no additional atrial fibrillation overnight last night. Sinus rhythm in the 50s to 60s noted. Physical Exam Constitutional: no acute distress Respiratory: normal respiratory effort, lungs clear to auscultation Cardiovascular: Rate/Rhythm: regular rate and regular rhythm Heart Sounds: + murmur (3/6 systolic murmur, decreased second heart sound) Extremities: no edema Gastrointestinal (Abdomen): normal bowel sounds, soft, nontender, no hepatosplenomegaly Neurologic: PERRL, EOMI, accommodation nl, no face palsy, no dysarthria Results & Data Vital Signs (Past 12 Hours) Vital Signs Temp Pulse Pulse Resp BP Pulse Ox O2 Del Method 11/19/22 11:59 69 11/19/22 11:54 36.7 C 64 18 129/84 97 Room Air 11/19/22 07:28 36.9 C 62 18 133/76 93 Room Air 11/19/22 03:59 36.6 C 64 16 174/94 H 93 Room Air Laboratory Results Coagulation 11/19/22 Range/Units 05:26 APTT 42.2 H* (21.0-31.0) Seconds CBC 11/19/22 Range/Units 05:26 WBC 6.36 (4.8-10.8) K/ul RBC 4.81 (4.20-5.40) M/uL Hgb 13.3 (12.0-16.0) g/dl Hct 41.5 (37.0-47.0) % Plt Count 188 (130-400) K/uL Neut # (Auto) 4.64 (1.40-6.50) K/uL Lymph # (Auto) 0.94 L (1.2-3.4) K/uL [place] # (Auto) 0.51 (0.11-0.59) K/uL Eos # (Auto) 0.19 (0-0.50) K/uL Baso # (Auto) 0.03 (0-0.2) K/uL Comprehensive Metabolic Panel 11/19/22 Range/Units 05:26 Sodium 138 (136-145) mmol/L Potassium 4.2 (3.5-5.1) mmol/L Chloride 102 (98-107) mmol/L Carbon Dioxide 30 (21-32) mmol/L BUN 27 H (6-23) mg/dl Creatinine 0.94 (0.6-1.2) mg/dl Glucose 147 H (70-99(Fasting)) mg/dl Calcium 9.3 (8.6-10.3) mg/dl Intake and Output 11/18/22 11/19/22 11/19/22 22:59 06:59 14:59 Intake Total 527.333 / 928.183 275.15 / 928.183 240 / 240 Output Total 550 / 603 Balance 527.333 / 325.183 -274.85 / 325.183 239 / 239 Intake: IV 212.333 / 563.183 225.15 / 563.183 Heparin Sodium/Dextrose 25,000 212.333 / 563.183 225.15 / 563.183 units In 500 ml @ 950 UNITS/HR 19 mls/hr IV .Q24H ANTWAN Rx#: [id number] dilTIAZem HCL 125 mg In 0 / 0 Dextrose 5% 100 ml @ 0 MG/HR IV .Q0M ANTWAN Rx#:[id number] Oral 315 / 365 50 / 365 240 / 240 Output: Urine 550 / 600 # Bowel Movements Other: # Unmeasured Voids 1 Weight 80 kg Weight Measurement Method Built in [facility] Hepatic function tests as measured on 11/16/2022 within normal limits TSH as measured on 11/19/2022 within normal limits at 2.43 IU/L Diagnostic Findings EKG performed 11/18/2022 at 2218 and interpreted independently: Sinus rhythm at 60 bpm, nonspecific repolarization changes. Corrected QT interval stable at 464 ms (2) Syncope Syncope type: unspecified Qualified Code(s): R55 - Syncope and collapse
[2022-11-19] MEDS: HEPARIN SODIUM/DEXTROSE 25,000 UNITS/500 ML BAG IV SCH (15:30)
[2022-11-19] MEDS: LANTUS PER UNIT CHARGE SQ SCH (21:31)
[2022-11-19] MEDS: ATORVASTATIN 10 MG TAB PO SCH (21:32)
[2022-11-20] MEDS: LORATADINE 10 MG TAB PO PRN (04:43)
[2022-11-20] MEDS: INSULIN ASPART PER UNIT CHARGE SC SCH ×4 (08:04→20:53)
[2022-11-20] MEDS: AMIODARONE 200 MG TAB PO SCH ×2 (08:04→17:18)
[2022-11-20] MEDS: METOPROLOL TARTRATE 25 MG TAB PO SCH ×2 (08:04→20:55)
[2022-11-20] MEDS: SODIUM CHLORIDE 0.65% NA SOLN 45 ML (OCEAN) SCH ×2 (08:04→20:55)
[2022-11-20] MEDS: EZETIMIBE 10 MG TABLET PO SCH (08:05)
[2022-11-20] MEDS: ESCITALOPRAM OXALATE 10 MG TAB PO SCH (08:05)
[2022-11-20] MEDS: DONEPEZIL HCL 10 MG TAB PO SCH (08:05)
[2022-11-20] MEDS: allopurinoL 100 MG TAB PO SCH (08:05)
[2022-11-20] MEDS: LACTULOSE SYRUP 30 GM/45 ML UDP PO SCH (08:05)
[2022-11-20] MEDS: CYANOCOBALAMIN (B-12) 500 MCG TABLET PO SCH (08:05)
[2022-11-20] MEDS: SACCHAROMYCES BOULARDII 250 MG CAP PO SCH (08:05)
[2022-11-20] MEDS: ASPIRIN 81 MG CHEW PO SCH (08:05)
[2022-11-20] MEDS: CEROVITE ADV FORMULA TAB PO SCH (08:05)
[2022-11-20] MEDS ORDERED: LOSARTAN POTASSIUM 25 MG TAB PO SCH (09:00)
[2022-11-20] MEDS: guaiFENesin/DEXTROM SYRUP 100MG/10MG 5ML UDC PO PRN ×2 (14:53→21:11)
--- NOTE | 2022-11-20 18:54 | Cardiology Progress Note ---
Date of Service November 20, 2022 Assessment & Plan (1) Atrial fibrillation with RVR: (2) Syncope: (3) Severe aortic stenosis: (4) Moderate mitral stenosis: Plan * Continue amiodarone 200 mg twice daily, Toprol tartrate 25 mg twice daily. * Add back losartan 12.5 mg daily for treatment of hypertension. * As previously noted, patient not felt to be a good candidate for long-term anticoagulation due to past falls, subarachnoid hemorrhage. Unfractioned heparin therefore discontinued on 11/19/2022. Start Lovenox 40 mg subcu daily for DVT prophylaxis. * Plan for transfer back to [facility] on 11/21/22 . Admission and Anticipated Discharge Date Admission Date: November 16, 2022 Subjective Patient seen in cardiology follow-up. Denies subjective cardiac complaint. Telemetry reveals sinus rhythm in the 70s to 80s, bradycardia down to the 50s while sleeping. No recurrent atrial fibrillation. Physical Exam Constitutional: no acute distress Respiratory: normal respiratory effort, lungs clear to auscultation Cardiovascular: Rate/Rhythm: regular rate, regular rhythm, + tachycardic and + irregularly irregular Heart Sounds: + murmur (3/6 systolic murmur, decreased second heart sound) Extremities: no edema Gastrointestinal (Abdomen): normal bowel sounds, soft, nontender, no hepatosplenomegaly Neurologic: PERRL, EOMI, accommodation nl, no face palsy, no dysarthria Results & Data Vital Signs (Past 12 Hours) Vital Signs Temp Pulse Pulse Resp BP Pulse Ox O2 Del Method 11/20/22 17:29 79 11/20/22 16:33 36.9 C 73 20 164/76 H 94 Room Air 11/20/22 11:56 36.9 C 65 20 126/78 95 Room Air 11/20/22 07:45 37 C 79 21 148/89 H 93 Room Air (2) Syncope Syncope type: unspecified Qualified Code(s): R55 - Syncope and collapse
[2022-11-20] MEDS: ENOXAPARIN INJ 40 MG/0.4 ML SYR SQ SCH (20:49)
[2022-11-20] MEDS: ATORVASTATIN 10 MG TAB PO SCH (20:54)
[2022-11-20] MEDS: LANTUS PER UNIT CHARGE SQ SCH (20:55)
[2022-11-21] MEDS ORDERED: LEVALBUTEROL HCL 0.63 MG/3 ML NEB NEB STA (00:21)
[2022-11-21] MEDS: guaiFENesin/DEXTROM SYRUP 100MG/10MG 5ML UDC PO PRN (04:19)
--- NOTE | 2022-11-21 07:13 | XRay Report ---
XR chest 1V portable HISTORY: Shortness of breath. COMPARISON: Chest 11/16/2022. FINDINGS: No pneumothorax. No pleural effusions. Bibasilar linear densities persist and favor subsegm ental atelectasis. Mitral anus calcifications are again noted. The heart remains mildly enlarged. No evidence for pulmonary edema. Stable enlargement of the pulmonary arteries consistent with pulmonary arterial hypertension. 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 No new focal lung consolida tions to suggest a pneumonia. IMPRESSION: No significant change compared to the prior study. No acute process. ACT 112: Negative or not required by law. Electronically signed by: Paul Panaigua M.D. 11/21/2022 7:12 AM
[2022-11-21 08:13] LABS: Creatinine Clr Calc Pharmacy 44.7 ml/min; Est GFR (African American) 67.6 ml/min; Est GFR (Non-African American) 58.3 ml/min
[2022-11-21] MEDS: LACTULOSE SYRUP 30 GM/45 ML UDP PO SCH (08:22)
[2022-11-21] MEDS: LOSARTAN POTASSIUM 25 MG TAB PO SCH (08:24)
[2022-11-21] MEDS: EZETIMIBE 10 MG TABLET PO SCH (08:24)
[2022-11-21] MEDS: METOPROLOL TARTRATE 25 MG TAB PO SCH ×2 (08:25→19:56)
[2022-11-21] MEDS: SACCHAROMYCES BOULARDII 250 MG CAP PO SCH (08:25)
[2022-11-21] MEDS: AMIODARONE 200 MG TAB PO SCH ×2 (08:26→17:17)
[2022-11-21] MEDS: CYANOCOBALAMIN (B-12) 500 MCG TABLET PO SCH (08:26)
[2022-11-21] MEDS: ASPIRIN 81 MG CHEW PO SCH (08:26)
[2022-11-21] MEDS: CEROVITE ADV FORMULA TAB PO SCH (08:27)
[2022-11-21] MEDS: SODIUM CHLORIDE 0.65% NA SOLN 45 ML (OCEAN) SCH ×2 (08:28→19:57)
[2022-11-21] MEDS: allopurinoL 100 MG TAB PO SCH (08:28)
[2022-11-21] MEDS: CHOLECALCIFEROL 1,000 UNITS 25 MCG TAB PO SCH (08:28)
[2022-11-21] MEDS: DONEPEZIL HCL 10 MG TAB PO SCH (08:28)
[2022-11-21] MEDS: ESCITALOPRAM OXALATE 10 MG TAB PO SCH (08:29)
[2022-11-21] MEDS: INSULIN ASPART PER UNIT CHARGE SC SCH ×4 (08:31→21:31)
[2022-11-21] MEDS ORDERED: ALBUTEROL 0.083% NEBU SOLN 3 ML VIAL NEB PRN (10:49)
[2022-11-21] MEDS ORDERED: FUROSEMIDE 40 MG/4 ML VIAL IV ONE (11:00)
[2022-11-21] MEDS: DOXYCYCLINE HYCLATE 100 MG CAP PO SCH ×2 (12:08→19:56)
--- NOTE | 2022-11-21 14:15 | Hospitalist Progress Note ---
Date of Service November 20, 2022 Assessment & Plan (1) Atrial fibrillation with RVR: Plan: 87-year-old fall with valvular disease, hypertension, dementia presented to ED with rapid atrial fibrillation. Atrial fibrillation with RVR-CT chest with no PE or pneumonia. Echo with EF 60 to 65%, severe valvular aortic stenosis, moderate MS, severe mitral annular calcification Appreciate cardiology input and recommendation Medication changes noted. Started on IV Cardizem drip, metoprolol 4 times daily. Will hold losartan to allow room for more rate controlling medications. Also started on heparin drip for anticoagulation given her high [id number] score. Heart rate is controlled and reverted back to sinus rhythm Beta-jocelyn has been added Continue with the current medications Heart rate is controlled and without any cardiac symptoms and the patient is ready to be discharged No long-term anticoagulation PT and OT evaluation prior to discharge-recommended discharge to the facility Due to increasing shortness of breath and cough she will stay Cough medicine as prescribed Dementia Alzheimer's dementia- monitor for delirium Remains pleasantly confused without any acute delirium Can go back to [facility] (2) Severe aortic stenosis: Plan: Has severe aortic stenosis May be the cause for the chest pain (3) Moderate mitral stenosis: (4) Type 2 diabetes mellitus: Plan: Diabetes mellitus type 2-continue insulin, carb controlled diet. Adjust insulin as indicated. Will not be aggressive given her dementia and comorbidities (5) History of subarachnoid hemorrhage: Plan Other chronic medical conditions are as follows: Hypertension-BP stable. Medication changes as above Depression-continue Lexapro History of CAD-troponin trend noted. Continue aspirin statin beta-jocelyn DVT prophylaxis-heparin drip CODE STATUS Full Admission and Anticipated Discharge Date Admission Date: November 16, 2022 Subjective 11/18/2022 The patient was seen and examined in telemetry unit She is pleasantly confused without any acute distress at rest Denies any symptomsno chest pain, palpitation, shortness of breath, abdominal pain, nausea and or vomiting 11/19/2022 The patient was seen and examined in telemetry unit She remains pleasantly confused Denies any acute symptoms 11/20/2022 Patient was seen and examined in telemetry unit She has been complaining of cough with minimal wheezing Denies any chest pain or palpitation Review of Systems Review of Systems: All systems reviewed and are unremarkable except as noted below Neurologic: Pleasantly confused and generally weak Physical Exam Physical Exam: Lying in bed comfortably Constitutional: well developed, well nourished and + obese; not ill appearing Eyes: PERRL, conjunctivae normal, anicteric sclerae ENMT: external ear and nose normal, oropharynx normal Neck: trachea midline, no thyromegaly Respiratory: no respiratory distress Auscultation: + diminished lung sounds, + crackles (Minimal crackles at the bases) and + wheezes (Minimal wheezing) Cardiovascular: Rate/Rhythm: regular rate and regular rhythm; not tachycardic Heart Sounds: normal S1, normal S2 and + murmur (2/6 ESM over precordium) Gastrointestinal (Abdomen): Inspection/Auscultation: normal bowel sounds; abdomen not distended Percussion/Palpation: abdomen soft; abdomen nontender Lymphatic: no cervical or axillary lymphadenopathy Results & Data Results & Data Vital Signs (Past 12 Hours) Vital Signs Temp Pulse Pulse Pulse Pulse Resp Resp 11/21/22 12:08 36.9 C 70 20 11/21/22 09:16 99 H 94 H 74 20 11/21/22 08:00 11/21/22 07:57 37 C 76 20 11/21/22 02:34 36.7 C 80 20 Resp Resp BP BP Pulse Ox Pulse Ox Pulse Ox 11/21/22 12:08 154/80 H 96 11/21/22 09:16 18 18 91 92 11/21/22 08:00 11/21/22 07:57 148/78 H 96 11/21/22 02:34 128/75 95 Pulse Ox O2 Del Method O2 Flow Rate 11/21/22 12:08 Nasal Cannula 2 11/21/22 09:16 95 11/21/22 08:00 Nasal Cannula 2 11/21/22 07:57 Nasal Cannula 2 11/21/22 02:34 Nasal Cannula 2
--- NOTE | 2022-11-21 14:18 | Hospitalist Progress Note ---
Date of Service November 21, 2022 Assessment & Plan (1) Atrial fibrillation with RVR: Plan: 87-year-old fall with valvular disease, hypertension, dementia presented to ED with rapid atrial fibrillation. Atrial fibrillation with RVR-CT chest with no PE or pneumonia. Echo with EF 60 to 65%, severe valvular aortic stenosis, moderate MS, severe mitral annular calcification Appreciate cardiology input and recommendation Medication changes noted. Started on IV Cardizem drip, metoprolol 4 times daily. Will hold losartan to allow room for more rate controlling medications. Also started on heparin drip for anticoagulation given her high [id number] score. Heart rate is controlled and reverted back to sinus rhythm Beta-jocelyn has been added Continue with the current medications Heart rate is controlled and without any cardiac symptoms and the patient is ready to be discharged No long-term anticoagulation PT and OT evaluation prior to discharge-recommended discharge to the facility Due to increasing shortness of breath and cough she will stay Cough medicine as prescribed Acute bronchitis Got worse with cough and wheezing-chest x-ray did not show any CHF and/or pneumonia Has been getting Robitussin-DM for cough and will add doxycycline We will also give a dose of Lasix IV Monitor PRP and likely discharge tomorrow She passed 2 step O2 saturation test Dementia Alzheimer's dementia- monitor for delirium Remains pleasantly confused without any acute delirium Can go back to [facility] (2) Severe aortic stenosis: Plan: Has severe aortic stenosis May be the cause for the chest pain (3) Moderate mitral stenosis: (4) Type 2 diabetes mellitus: Plan: Diabetes mellitus type 2-continue insulin, carb controlled diet. Adjust insulin as indicated. Will not be aggressive given her dementia and comorbidities (5) History of subarachnoid hemorrhage: Plan Other chronic medical conditions are as follows: Hypertension-BP stable. Medication changes as above Depression-continue Lexapro History of CAD-troponin trend noted. Continue aspirin statin beta-jocelyn DVT prophylaxis-heparin drip CODE STATUS Full Discussed with daughter in detail Admission and Anticipated Discharge Date Admission Date: November 16, 2022 Subjective 11/18/2022 The patient was seen and examined in telemetry unit She is pleasantly confused without any acute distress at rest Denies any symptomsno chest pain, palpitation, shortness of breath, abdominal pain, nausea and or vomiting 11/19/2022 The patient was seen and examined in telemetry unit She remains pleasantly confused Denies any acute symptoms 11/20/2022 Patient was seen and examined in telemetry unit She has been complaining of cough with minimal wheezing Denies any chest pain or palpitation 11/21/2022 The patient was seen and examined in telemetry unit in presence of the daughter She was noted to be more short of breath last night and has been requiring 2 L to maintain saturation Noted to have more wheezing and cough She passed 2 step O2 saturation test but will not be discharged due to acute bronchitis and more shortness of breath Discussed with the daughter Review of Systems Review of Systems: All systems reviewed and are unremarkable except as noted below Neurologic: Pleasantly confused and generally weak Physical Exam Physical Exam: Lying in bed comfortably Constitutional: well developed, well nourished and + obese; not ill appearing Eyes: PERRL, conjunctivae normal, anicteric sclerae ENMT: external ear and nose normal, oropharynx normal Neck: trachea midline, no thyromegaly Respiratory: no respiratory distress Auscultation: + diminished lung sounds, + crackles (Minimal crackles at the bases) and + wheezes (Minimal wheezing) Cardiovascular: Rate/Rhythm: regular rate and regular rhythm; not tachycardic Heart Sounds: normal S1, normal S2 and + murmur (2/6 ESM over precordium) Gastrointestinal (Abdomen): Inspection/Auscultation: normal bowel sounds; abdomen not distended Percussion/Palpation: abdomen soft; abdomen nontender Musculoskeletal: No acute arthritis involving any of the joint Neurologic: Alert and awake. Pleasantly confused Lymphatic: no cervical or axillary lymphadenopathy Results & Data Results & Data Vital Signs (Past 12 Hours) Vital Signs Temp Pulse Pulse Pulse Pulse Pulse Resp 11/21/22 07:00 75 11/21/22 12:08 36.9 C 70 20 11/21/22 09:16 99 H 94 H 74 11/21/22 08:00 11/21/22 07:57 37 C 76 20 11/21/22 02:34 36.7 C 80 20 Resp Resp Resp BP BP Pulse Ox Pulse Ox 11/21/22 07:00 11/21/22 12:08 154/80 H 96 11/21/22 09:16 20 18 18 91 11/21/22 08:00 11/21/22 07:57 148/78 H 96 11/21/22 02:34 128/75 95 Pulse Ox Pulse Ox O2 Del Method O2 Flow Rate 11/21/22 07:00 11/21/22 12:08 Nasal Cannula 2 11/21/22 09:16 92 95 11/21/22 08:00 Nasal Cannula 2 11/21/22 07:57 Nasal Cannula 2 11/21/22 02:34 Nasal Cannula 2 Laboratory Results BMP 11/21/22 07:29 Creatinine 0.90 Medications Administered Current Inpatient Medications Acetaminophen (Acetaminophen 325 Mg Tab) 650 mg PO Q4H PRN PRN Reason: Pain or Fever Stop: 12/17/22 00:37 Last Admin: 11/18/22 11:19 Dose: 650 mg Albuterol (Albuterol 0.083% Nebu Soln 3 Ml Vial) 2.5 mg NEB Q6R PRN; Protocol PRN Reason: Wheezing Stop: 12/21/22 10:48 Allopurinol (Allopurinol 100 Mg Tab) 100 mg PO QAM [facility] Stop: 12/17/22 08:59 Last Admin: 11/21/22 08:28 Dose: 100 mg Amiodarone HCl (Amiodarone 200 Mg Tab) 200 mg PO BIDM ANTWAN Stop: 12/19/22 07:59 Last Admin: 11/21/22 08:26 Dose: 200 mg Aspirin (Aspirin 81 Mg Chew) 81 mg PO DAILY ANTWAN Stop: 12/17/22 08:59 Last Admin: 11/21/22 08:26 Dose: 81 mg Atorvastatin Calcium (Atorvastatin 10 Mg Tab) 10 mg PO PM ANTWAN Stop: 12/17/22 20:59 Last Admin: 11/20/22 20:54 Dose: 10 mg Cyanocobalamin (Cyanocobalamin (B-12) 500 Mcg Tablet) 1,000 mcg PO QAM ANTWAN Stop: 12/17/22 08:59 Last Admin: 11/21/22 08:26 Dose: 1,000 mcg Dextrose (Dextrose 50% 50 Ml Syringe) 25 - 50 ml IV UD PRN; Protocol PRN Reason: Hypoglycemia Protocol Stop: 12/17/22 07:58 Donepezil HCl (Donepezil Hcl 10 Mg Tab) 10 mg PO DAILY ANTWAN Stop: 12/17/22 08:59 Last Admin: 11/21/22 08:28 Dose: 10 mg Doxycycline Hyclate (Doxycycline Hyclate 100 Mg Cap) 100 mg PO BID ANTWAN Stop: 11/28/22 10:59 Last Admin: 11/21/22 12:08 Dose: 100 mg Ezetimibe (Ezetimibe 10 Mg Tablet) 10 mg PO DAILY [facility] Stop: 12/17/22 08:59 Last Admin: 11/21/22 08:24 Dose: 10 mg Enoxaparin Sodium (Enoxaparin Inj 40 Mg/0.4 Ml Syr) 40 mg SQ Q24H ANTWAN Stop: 12/20/22 18:59 Last Admin: 11/20/22 20:49 Dose: 40 mg Escitalopram Oxalate (Escitalopram Oxalate 10 Mg Tab) 10 mg PO DAILY ANTWAN Stop: 12/17/22 08:59 Last Admin: 11/21/22 08:29 Dose: 10 mg Glucagon (Glucagon For Inj 1 Mg Vial) 1 mg SQ UD PRN; Protocol PRN Reason: Hypoglycemia Protocol Stop: 12/17/22 07:58 Glucose (Glucose 10 Tab/Tube) 4 - 8 tab PO UD PRN; Protocol PRN Reason: Hypoglycemia Treatment Stop: 12/17/22 07:58 Glucose (Glucose 40% Gel 15 Gm Tube) 15 - 30 gm PO UD PRN; Protocol PRN Reason: Hypoglycemia Protocol Stop: 12/17/22 07:58 Guaifenesin/Dextromethorphan (Guaifenesin/Dextrom Syrup 100mg/10mg 5ml Udc) 5 ml PO Q6H PRN PRN Reason: Cough Stop: 12/20/22 14:41 Last Admin: 11/21/22 04:19 Dose: 5 ml Insulin Aspart (Insulin Aspart Per Unit Charge) 0 units SC ACHS [facility] Stop: 12/17/22 16:29 Last Admin: 11/21/22 12:08 Dose: 1 units Insulin Glargine (Lantus Per Unit Charge) 10 units SQ HS [facility] Stop: 12/17/22 20:59 Last Admin: 11/20/22 20:55 Dose: 10 units Lactulose (Lactulose Syrup 30 Gm/45 Ml Udp) 30 gm PO QAM [facility] Stop: 12/17/22 08:59 Last Admin: 11/21/22 08:22 Dose: 30 gm Loratadine (Loratadine 10 Mg Tab) 10 mg PO DAILY PRN PRN Reason: Allergic Symptoms Stop: 12/20/22 04:20 Last Admin: 11/20/22 04:43 Dose: 10 mg Losartan Potassium (Losartan Potassium 25 Mg Tab) 12.5 mg PO QAM [facility] Stop: 12/21/22 08:59 Last Admin: 11/21/22 08:24 Dose: 12.5 mg Metoprolol Tartrate (Metoprolol Tartrate 25 Mg Tab) 25 mg PO BID [facility] Stop: 12/18/22 20:59 Last Admin: 11/21/22 08:25 Dose: 25 mg Miscellaneous (Carbohydrates For Hypoglycemia ) 15 - 30 gm PO UD PRN PRN Reason: Hypoglycemia Protocol Stop: 12/17/22 07:58 Multivitamins/Minerals (Cerovite Adv Formula Tab) 1 tab PO DAILY ANTWAN Stop: 12/17/22 08:59 Last Admin: 11/21/22 08:27 Dose: 1 tab Nitroglycerin (Nitroglycerin Sl 0.4 Mg/Tab Tab) 0.4 mg SL Q5M PRN PRN Reason: Chest Pain Stop: 12/17/22 00:37 Last Admin: 11/18/22 22:58 Dose: 0.4 mg Saccharomyces Boulardii (Saccharomyces Boulardii 250 Mg Cap) 250 mg PO QAM [facility] Stop: 12/17/22 08:59 Last Admin: 11/21/22 08:25 Dose: 250 mg Sodium Chloride (Sodium Chloride 0.65% Na Soln 45 Ml ([place])) 1 sprays NA BID [facility] Stop: 12/17/22 08:59 Last Admin: 11/21/22 08:28 Dose: 1 sprays Vitamin D (Cholecalciferol 1,000 Units 25 Mcg Tab) 1,000 units PO Q48H [facility] Stop: 12/17/22 08:59 Last Admin: 11/21/22 08:28 Dose: 1,000 units
[2022-11-21] MEDS: ENOXAPARIN INJ 40 MG/0.4 ML SYR SQ SCH (19:56)
[2022-11-21] MEDS: ATORVASTATIN 10 MG TAB PO SCH (19:56)
[2022-11-21] MEDS: LANTUS PER UNIT CHARGE SQ SCH (20:57)
[2022-11-22 06:56] LABS: Basophils # (auto) 0.03 K/uL (0-0.2); Basophils % (auto) 0.7 %; Eosinophils % (auto) 2.3 %; Hematocrit (blood only) 41.7 % (37.0-47.0); Hemoglobin 13.3 g/dl (12.0-16.0); Immature Granulocytes # (auto) 0.09 K/uL (0.01-0.20); Immature Granulocytes % (auto) 2.1 %; Lymphocytes # (auto) 0.57 K/uL (1.2-3.4); Lymphocytes % (auto) 13.2 %; Mean Corpuscular Hemoglobin 27.7 pg (25.0-34.0); Mean Corpuscular Hgb Conc 31.9 g/dL (32.0-36.0); Mean Corpuscular Volume 86.9 fL (80.0-100.0); Mean Platelet Volume 11.1 fL (9.4-12.4); Monocytes # (auto) 0.73 K/uL (0.11-0.59); Monocytes % (auto) 16.9 %; Neutrophils % (auto) 64.8 %; Platelet Count 137 K/uL (130-400); RDW Coefficient of Variation 15.4 % (11.5-14.5); RDW Standard Deviation 48.9 fL (36.4-46.3); White Blood Count 4.32 K/ul (4.8-10.8)
[2022-11-22 07:23] LABS: Magnesium 1.8 mg/dl (1.7-2.4); Potassium 4.3 mmol/L (3.5-5.1)
[2022-11-22 07:28] LABS: Est GFR (African American) 54.8 ml/min; Est GFR (Non-African American) 47.3 ml/min
[2022-11-22] MEDS: INSULIN ASPART PER UNIT CHARGE SC SCH ×2 (08:27→12:09)
[2022-11-22] MEDS: DOXYCYCLINE HYCLATE 100 MG CAP PO SCH (08:28)
[2022-11-22] MEDS: CEROVITE ADV FORMULA TAB PO SCH (08:28)
[2022-11-22] MEDS: ASPIRIN 81 MG CHEW PO SCH (08:28)
[2022-11-22] MEDS: allopurinoL 100 MG TAB PO SCH (08:28)
[2022-11-22] MEDS: METOPROLOL TARTRATE 25 MG TAB PO SCH (08:28)
[2022-11-22] MEDS: SACCHAROMYCES BOULARDII 250 MG CAP PO SCH (08:28)
[2022-11-22] MEDS: LORATADINE 10 MG TAB PO PRN (08:29)
[2022-11-22] MEDS: CYANOCOBALAMIN (B-12) 500 MCG TABLET PO SCH (08:29)
[2022-11-22] MEDS: DONEPEZIL HCL 10 MG TAB PO SCH (08:39)
[2022-11-22] MEDS: LACTULOSE SYRUP 30 GM/45 ML UDP PO SCH (08:39)
[2022-11-22] MEDS: AMIODARONE 200 MG TAB PO SCH (08:39)
[2022-11-22] MEDS: ESCITALOPRAM OXALATE 10 MG TAB PO SCH (08:39)
[2022-11-22] MEDS: LOSARTAN POTASSIUM 25 MG TAB PO SCH (08:39)
[2022-11-22] MEDS: EZETIMIBE 10 MG TABLET PO SCH (08:40)
[2022-11-22] MEDS: SODIUM CHLORIDE 0.65% NA SOLN 45 ML (OCEAN) SCH (08:40)
--- NOTE | 2022-11-22 12:33 | Hospitalist Progress Note ---
Date of Service November 22, 2022 Assessment & Plan (1) Atrial fibrillation with RVR: Plan: 87-year-old fall with valvular disease, hypertension, dementia presented to ED with rapid atrial fibrillation. Atrial fibrillation with RVR-CT chest with no PE or pneumonia. Echo with EF 60 to 65%, severe valvular aortic stenosis, moderate MS, severe mitral annular calcification Appreciate cardiology input and recommendation Medication changes noted. Started on IV Cardizem drip, metoprolol 4 times daily. Will hold losartan to allow room for more rate controlling medications. Also started on heparin drip for anticoagulation given her high [id number] score. Heart rate is controlled and reverted back to sinus rhythm Beta-jocelyn has been added Continue with the current medications Heart rate is controlled and without any cardiac symptoms and the patient is ready to be discharged No long-term anticoagulation PT and OT evaluation prior to discharge-recommended discharge to the facility Due to increasing shortness of breath and cough she will stay Rate remains controlled and amiodarone will be given at 200 mg daily on discharge Lasix will be water as needed basis Acute bronchitis Got worse with cough and wheezing-chest x-ray did not show any CHF and/or pneumonia Has been getting Robitussin-DM for cough and will add doxycycline We will also give a dose of Lasix IV Monitor PRP and likely discharge tomorrow She passed 2 step O2 saturation test She has been feeling much better without significant cough and wheezing is improved Dementia Alzheimer's dementia- monitor for delirium Remains pleasantly confused without any acute delirium Can go back to [facility] (2) Severe aortic stenosis: Plan: Has severe aortic stenosis May be the cause for the chest pain She will have an appointment with the swing saw operator within 1 month to assess the valve (3) Moderate mitral stenosis: (4) Type 2 diabetes mellitus: Plan: Diabetes mellitus type 2-continue insulin, carb controlled diet. Adjust insulin as indicated. Will not be aggressive given her dementia and comorbidities (5) History of subarachnoid hemorrhage: Plan Other chronic medical conditions are as follows: Hypertension-BP stable. Medication changes as above Depression-continue Lexapro History of CAD-troponin trend noted. Continue aspirin statin beta-jocelyn DVT prophylaxis-heparin drip CODE STATUS Full Discussed with daughter in detail Will talk to the daughter about discharge today Admission and Anticipated Discharge Date Admission Date: November 16, 2022 Subjective 11/18/2022 The patient was seen and examined in telemetry unit She is pleasantly confused without any acute distress at rest Denies any symptomsno chest pain, palpitation, shortness of breath, abdominal pain, nausea and or vomiting 11/19/2022 The patient was seen and examined in telemetry unit She remains pleasantly confused Denies any acute symptoms 11/20/2022 Patient was seen and examined in telemetry unit She has been complaining of cough with minimal wheezing Denies any chest pain or palpitation 11/21/2022 The patient was seen and examined in telemetry unit in presence of the daughter She was noted to be more short of breath last night and has been requiring 2 L to maintain saturation Noted to have more wheezing and cough She passed 2 step O2 saturation test but will not be discharged due to acute bronchitis and more shortness of breath Discussed with the daughter 11/22/2022 The patient was seen and examined in telemetry unit She has been feeling much better and the cough is decreased and no wheezing at rest She has been saturating normally on room air Denies any other significant symptoms Review of Systems Review of Systems: All systems reviewed and are unremarkable except as noted below Neurologic: Pleasantly confused and generally weak Physical Exam Physical Exam: Lying in bed comfortably Constitutional: well developed, well nourished and + obese; not ill appearing Eyes: PERRL, conjunctivae normal, anicteric sclerae ENMT: external ear and nose normal, oropharynx normal Neck: trachea midline, no thyromegaly Respiratory: no respiratory distress Auscultation: + diminished lung sounds, + crackles (Minimal crackles at the bases) and + wheezes (Minimal wheezing-improved further) Cardiovascular: Rate/Rhythm: regular rate and regular rhythm; not tachycardic Heart Sounds: normal S1, normal S2 and + murmur (2/6 ESM over precordium) Gastrointestinal (Abdomen): Inspection/Auscultation: normal bowel sounds; abdomen not distended Percussion/Palpation: abdomen soft; abdomen nontender Lymphatic: no cervical or axillary lymphadenopathy Results & Data Results & Data Vital Signs (Past 12 Hours) Vital Signs Temp Pulse Pulse Resp BP BP Pulse Ox 11/22/22 08:00 65 11/22/22 08:00 11/22/22 08:03 37 C 69 20 130/72 91 11/22/22 03:07 36.6 C 58 L 20 132/73 92 O2 Del Method 11/22/22 08:00 11/22/22 08:00 Room Air 11/22/22 08:03 Room Air 11/22/22 03:07 Room Air Laboratory Results Short CBC 11/22/22 Range/Units 06:03 WBC 4.32 L (4.8-10.8) K/ul Hgb 13.3 (12.0-16.0) g/dl Hct 41.7 (37.0-47.0) % Plt Count 137 (130-400) K/uL BMP 11/22/22 06:03 Sodium 135 L Potassium 4.3 Chloride 99 Carbon Dioxide 26 BUN 30 H Creatinine 1.07 Glucose 131 H Calcium 10.0 Medications Administered Current Inpatient Medications Acetaminophen (Acetaminophen 325 Mg Tab) 650 mg PO Q4H PRN PRN Reason: Pain or Fever Stop: 12/17/22 00:37 Last Admin: 11/18/22 11:19 Dose: 650 mg Albuterol (Albuterol 0.083% Nebu Soln 3 Ml Vial) 2.5 mg NEB Q6R PRN; Protocol PRN Reason: Wheezing Stop: 12/21/22 10:48 Allopurinol (Allopurinol 100 Mg Tab) 100 mg PO QAM [facility] Stop: 12/17/22 08:59 Last Admin: 11/22/22 08:28 Dose: 100 mg Amiodarone HCl (Amiodarone 200 Mg Tab) 200 mg PO BIDM ANTWAN Stop: 12/19/22 07:59 Last Admin: 11/22/22 08:39 Dose: 200 mg Aspirin (Aspirin 81 Mg Chew) 81 mg PO DAILY ANTWAN Stop: 12/17/22 08:59 Last Admin: 11/22/22 08:28 Dose: 81 mg Atorvastatin Calcium (Atorvastatin 10 Mg Tab) 10 mg PO PM ANTWAN Stop: 12/17/22 20:59 Last Admin: 11/21/22 19:56 Dose: 10 mg Cyanocobalamin (Cyanocobalamin (B-12) 500 Mcg Tablet) 1,000 mcg PO QAM ANTWAN Stop: 12/17/22 08:59 Last Admin: 11/22/22 08:29 Dose: 1,000 mcg Dextrose (Dextrose 50% 50 Ml Syringe) 25 - 50 ml IV UD PRN; Protocol PRN Reason: Hypoglycemia Protocol Stop: 12/17/22 07:58 Donepezil HCl (Donepezil Hcl 10 Mg Tab) 10 mg PO DAILY ANTWAN Stop: 12/17/22 08:59 Last Admin: 11/22/22 08:39 Dose: 10 mg Doxycycline Hyclate (Doxycycline Hyclate 100 Mg Cap) 100 mg PO BID ANTWAN Stop: 11/28/22 10:59 Last Admin: 11/22/22 08:28 Dose: 100 mg Ezetimibe (Ezetimibe 10 Mg Tablet) 10 mg PO DAILY ANTWAN Stop: 12/17/22 08:59 Last Admin: 11/22/22 08:40 Dose: 10 mg Enoxaparin Sodium (Enoxaparin Inj 40 Mg/0.4 Ml Syr) 40 mg SQ Q24H ANTWAN Stop: 12/20/22 18:59 Last Admin: 11/21/22 19:56 Dose: 40 mg Escitalopram Oxalate (Escitalopram Oxalate 10 Mg Tab) 10 mg PO DAILY ANTWAN Stop: 12/17/22 08:59 Last Admin: 11/22/22 08:39 Dose: 10 mg Glucagon (Glucagon For Inj 1 Mg Vial) 1 mg SQ UD PRN; Protocol PRN Reason: Hypoglycemia Protocol Stop: 12/17/22 07:58 Glucose (Glucose 10 Tab/Tube) 4 - 8 tab PO UD PRN; Protocol PRN Reason: Hypoglycemia Treatment Stop: 12/17/22 07:58 Glucose (Glucose 40% Gel 15 Gm Tube) 15 - 30 gm PO UD PRN; Protocol PRN Reason: Hypoglycemia Protocol Stop: 12/17/22 07:58 Guaifenesin/Dextromethorphan (Guaifenesin/Dextrom Syrup 100mg/10mg 5ml Udc) 5 ml PO Q6H PRN PRN Reason: Cough Stop: 12/20/22 14:41 Last Admin: 11/21/22 04:19 Dose: 5 ml Insulin Aspart (Insulin Aspart Per Unit Charge) 0 units SC ACHS [facility] Stop: 12/17/22 16:29 Last Admin: 11/22/22 08:27 Dose: 4 units Insulin Glargine (Lantus Per Unit Charge) 10 units SQ HS [facility] Stop: 12/17/22 20:59 Last Admin: 11/21/22 20:57 Dose: 10 units Lactulose (Lactulose Syrup 30 Gm/45 Ml Udp) 30 gm PO QAM ANTWAN Stop: 12/17/22 08:59 Last Admin: 11/22/22 08:39 Dose: 30 gm Loratadine (Loratadine 10 Mg Tab) 10 mg PO DAILY PRN PRN Reason: Allergic Symptoms Stop: 12/20/22 04:20 Last Admin: 11/22/22 08:29 Dose: 10 mg Losartan Potassium (Losartan Potassium 25 Mg Tab) 12.5 mg PO QAM [facility] Stop: 12/21/22 08:59 Last Admin: 11/22/22 08:39 Dose: 12.5 mg Metoprolol Tartrate (Metoprolol Tartrate 25 Mg Tab) 25 mg PO BID [facility] Stop: 12/18/22 20:59 Last Admin: 11/22/22 08:28 Dose: 25 mg Miscellaneous (Carbohydrates For Hypoglycemia ) 15 - 30 gm PO UD PRN PRN Reason: Hypoglycemia Protocol Stop: 12/17/22 07:58 Multivitamins/Minerals (Cerovite Adv Formula Tab) 1 tab PO DAILY [facility] Stop: 12/17/22 08:59 Last Admin: 11/22/22 08:28 Dose: 1 tab Nitroglycerin (Nitroglycerin Sl 0.4 Mg/Tab Tab) 0.4 mg SL Q5M PRN PRN Reason: Chest Pain Stop: 12/17/22 00:37 Last Admin: 11/18/22 22:58 Dose: 0.4 mg Saccharomyces Boulardii (Saccharomyces Boulardii 250 Mg Cap) 250 mg PO QAM [facility] Stop: 12/17/22 08:59 Last Admin: 11/22/22 08:28 Dose: 250 mg Sodium Chloride (Sodium Chloride 0.65% Na Soln 45 Ml (Califon)) 1 sprays NA BID [facility] Stop: 12/17/22 08:59 Last Admin: 11/22/22 08:40 Dose: 1 sprays Vitamin D (Cholecalciferol 1,000 Units 25 Mcg Tab) 1,000 units PO Q48H [facility] Stop: 12/17/22 08:59 Last Admin: 11/21/22 08:28 Dose: 1,000 units
--- NOTE | 2022-11-23 07:52 | Discharge Summary ---
Date of Service November 22, 2022 Admission HPI Per Admitting Provider DICTATED BY:Chriss Pinto MD DATE OF ADMISSION: 11/16/2022. CHIEF COMPLAINT: Rapid AFib. HISTORY OF PRESENT ILLNESS: An 87-year-old female with past medical history significant for type 2 diabetes, diabetic peripheral neuropathy, hyperlipidemia, CAD, hypertension, severe aortic valve stenosis, moderate aortic valve stenosis, macular degeneration, gouty arthropathy, history of traumatic brain injury and subarachnoid hemorrhage as per the Epic in 10/2021, but daughter says this was in 05/2021, history of Alzheimer disease, depression, history of bladder cancer, seems to be in 2008, presents with rapid AFib. The patient went to her family doctor for regular visits and found to be in AFib and sent here and when she came in, heart rate was in the 130s. Currently with Cardizem drip,heart rates improved. The patient gets on and off chest pains per daughter for some time and she gets short of breath with exertion. She states she feels palpitations and at that time, she has some headaches. Today she is feeling hot and says she had sweats like this couple of months ago. Denies any blurred visions, no earache, no runny nose, no sore throat, difficulty swallowing. Appetite is okay. No nausea, no abdominal pain. Normal bowel and bladder movements. No swelling of the legs. The patient is very hard of hearing. Daughter is in the room, who is helping with H and P. Admission Exam Per Admitting Provider GENERAL: The patient is alert and awake, very hard of hearing, not in acute distress. VITAL SIGNS: Temperature 36.3, pulse 87, respiratory rate 26, blood pressure 143/82, oxygen 93% on room air. HEENT: Pupils equal, round and reactive to light. Oral mucosa moist. NECK: No JVD. No neck masses. CARDIOVASCULAR: S1 and S2 heard. Regular rhythm, tachycardia. RESPIRATORY SYSTEM: Normal AP diameter. No accessory muscle use. No wheezing, no crackles. ABDOMEN: Soft, bowel sounds present, nontender, no distention. CENTRAL NERVOUS SYSTEM: Alert and oriented. Speech is clear. No facial droop. Obeys simple commands. Moves extremities. EXTREMITIES: No edema, no erythema. Principal Diagnosis A-fib with RVR, acute bronchitis, CVA aortic stenosis Discharge Exam Lying in bed comfortably Constitutional well developed, well nourished and + obese; not ill appearing Eyes PERRL, conjunctivae normal, anicteric sclerae ENMT external ear and nose normal, oropharynx normal Neck trachea midline, no thyromegaly Respiratory no respiratory distress Auscultation: + diminished lung sounds, + crackles (Minimal crackles at the bases) and + wheezes (Minimal wheezing-improved further) Cardiovascular Rate/Rhythm: regular rate and regular rhythm; not tachycardic Heart Sounds: normal S1, normal S2 and + murmur (2/6 ESM over precordium) Gastrointestinal (Abdomen) Inspection/Auscultation: normal bowel sounds; abdomen not distended Percussion/Palpation: abdomen soft; abdomen nontender Lymphatic no cervical or axillary lymphadenopathy Discharge Data Allergies Allergy/AdvReac Type Severity Reaction Status Date / Time pollen extracts Allergy Intermediate ITCHY Verified 11/16/22 19:31 EYES, SNEEZING, CONGESTION lisinopril Allergy Unknown CAN'T Verified 11/16/22 19:31 REMEMBER oxaprozin [From Daypro] Allergy Unknown CAN'T Verified 11/16/22 19:31 REMEMBER Penicillins Allergy Unknown CAN'T Verified 11/16/22 19:31 REMEMBER Consultations 11/16/22 21:49 ED Decision to Admit Stat 11/17/22 08:00 Consult Cardiology Routine Ordered Studies 11/16/22 18:38 CT head/brain wo con Stat 11/16/22 18:47 CT cervical spine wo con Stat 11/16/22 19:50 CT angio chest PE protocol Stat Hospital Course (1) Atrial fibrillation with RVR: 87-year-old fall with valvular disease, hypertension, dementia presented to ED with rapid atrial fibrillation. Atrial fibrillation with RVR-CT chest with no PE or pneumonia. Echo with EF 60 to 65%, severe valvular aortic stenosis, moderate MS, severe mitral annular calcification Appreciate cardiology input and recommendation Medication changes noted. Started on IV Cardizem drip, metoprolol 4 times daily. Will hold losartan to allow room for more rate controlling medications. Also started on heparin drip for anticoagulation given her high [id number] score. Heart rate is controlled and reverted back to sinus rhythm Beta-jocelyn has been added Continue with the current medications Heart rate is controlled and without any cardiac symptoms and the patient is ready to be discharged No long-term anticoagulation PT and OT evaluation prior to discharge-recommended discharge to the facility Due to increasing shortness of breath and cough she will stay Rate remains controlled and amiodarone will be given at 200 mg daily on discharge Lasix will be water as needed basis Acute bronchitis Got worse with cough and wheezing-chest x-ray did not show any CHF and/or pneumonia Has been getting Robitussin-DM for cough and will add doxycycline We will also give a dose of Lasix IV Monitor PRP and likely discharge tomorrow She passed 2 step O2 saturation test She has been feeling much better without significant cough and wheezing is improved Dementia Alzheimer's dementia- monitor for delirium Remains pleasantly confused without any acute delirium Can go back to [facility] (2) Severe aortic stenosis: Has severe aortic stenosis May be the cause for the chest pain She will have an appointment with the roller varnisher within 1 month to assess the valve (3) Moderate mitral stenosis: (4) Type 2 diabetes mellitus: Diabetes mellitus type 2-continue insulin, carb controlled diet. Adjust insulin as indicated. Will not be aggressive given her dementia and comorbidities (5) History of subarachnoid hemorrhage: Plan Other chronic medical conditions are as follows: Hypertension-BP stable. Medication changes as above Depression-continue Lexapro History of CAD-troponin trend noted. Continue aspirin statin beta-jocelyn DVT prophylaxis-heparin drip CODE STATUS Full Discussed with daughter in detail Will talk to the daughter about discharge today Total Time Total Time Spent Total Time Spent (In Minutes): 35 minutes Discharge Plan Discharge Items Patient Disposition[facility] Reason For Visit: RAPID A FIB Discharge Diagnosis: A-fib with RVR, acute bronchitis, CVA aortic stenosis Condition on Discharge: Fair Activity: Resume your previous activity Non-emergency contact: Primary Care Provider Call non-emergency contact if: you have any medication questions and your symptoms worsen Follow-up/Referrals: Ravin Mejia DO [Physician] - (Date & Time 11/28/2022 1:00 PM Provider Ravin Mejia DO Department Family Practice [address], [place] ) Lisa Dasilva at [facility] [Primary Care Provider] - Diet: Carb Consistent or DM2 and Heart Healthy Addtl Attending Provider Instructions: Please take precautions to avoid fall Take your medications as advised Please keep appointment with your healthcare providers Pending Studies at Discharge: No Stand-Alone Forms: [place], Smoking Cessation Skilled Items Patient informed of condition?: Yes DNR: No Discharge Level of Care: Other Communicable Disease: No Discharge Prognosis: Stable Lines: None Urinary Catheter: No Medications and DC Order Prescriptions: New metoprolol tartrate 25 mg Tablet 25 mg PO BID 30 Days Qty: 60 0RF doxycycline hyclate 100 mg Capsule 100 mg PO BID 7 Days Qty: 14 0RF amiodarone 200 mg Tablet 200 mg PO DAILY 30 Days Qty: 30 0RF dextromethorphan-guaifenesin 10-100 mg/5 mL Syrup 5 ml PO Q6H PRN (Reason: cough) 7 Days Qty: 120 0RF albuterol sulfate 90 mcg/actuation aerosol powdr breath activated 2 inh inhalation Q6HWA PRN (Reason: shortness of breath or wheezing) Qty: 1 0RF furosemide [Lasix] 20 mg tablet 20 mg PO Q OTHER DAY Qty: 30 0RF Continued acetaminophen [Tylenol] 325 mg Tablet 650 mg PO Q6H MDD 3 GRAMS/24 HOURS PRN (Reason: PAIN/FEVER) atorvastatin 10 mg Tablet 10 mg PO PM allopurinol 100 mg Tablet 100 mg PO QAM cyanocobalamin (vitamin B-12) [Vitamin B-12] 500 mcg Tablet 1,000 mcg PO QAM aspirin 81 mg Tablet,Chewable 81 mg PO DAILY cholecalciferol (vitamin D3) [Vitamin D3] 25 mcg (1,000 unit) Capsule 25 mcg PO Q OTHER DAY Saccharomyces boulardii 250 mg Capsule 250 mg PO QAM lactulose 10 gram/15 mL Solution 30 g PO QAM sodium chloride-aloe vera Swab 1 ea INTRANASAL BID Rx Instructions: NASAL DRYNESS insulin glargine [Lantus Solostar U-100 Insulin] 100 unit/mL (3 mL) Insulin Pen 22 unit SUBCUT HS Macular Health Formula 5-1-7.5 mg Capsule 1 cap PO QID donepezil 10 mg Tablet 10 mg PO DAILY losartan 25 mg Tablet 12.5 mg PO DAILY metformin 500 mg Tablet Extended Release 24 Hr 500 mg PO QDD escitalopram oxalate [Lexapro] 10 mg Tablet 10 mg PO DAILY ezetimibe [Zetia] 10 mg Tablet 10 mg PO DAILY coQ10 (ubiquinol) 200 mg Capsule 200 mg PO DAILY Discontinued carvedilol 3.125 mg Tablet 1.5625 mg PO BID diltiazem HCl 120 mg Tablet 120 mg PO QAM Discharge Orders: Discharge Order (Routine); Ordered 11/22/22 Ordered By: Nayeli Cano Admission Data Admit Date/Time: 11/16/22 23:28 Attending Provider: Nayeli Cano Admit Provider: Chriss Pinto Primary Care Provider: Lisa Dasilva [facility] Other Providers: Chriss Pinto ; Jaydon Kelley ; Donnie Smallwood Other Interventions: Discharge Summary Assessment (RN) Last Done: 11/22/22 14:50
[2022-11-23] MEDS ORDERED: AMIODARONE 200 MG TAB PO SCH (09:00)
== END 2022-11-22 16:18 | disposition home or self-care (01) | DRG 310 ==
LOC: ED 17:46 → SUATTDRO 23:28 → 2S 23:28

== ENCOUNTER 2024-07-05 13:05 | Inpatient (IN) ==
--- OUTSIDE RECORDS SUMMARY | 2024-07-05 13:15 | External Medical Summary | Summary of Care ---
Author Name Unknown Organization [facility] Address [address] [place] [address] Phone [phone] Care Team Providers Care Digital Forensics Examiner Name Role Phone Ravin Mejia DO Primary Care Provider [phone] Encounter Details Date Type Department Care Team (Late st Contact Info) Description 07/02/2024 Orders Only Lab Mobile Phlebotomy [facility] [address] [place] [address] Osmany Ray MD [address] [facility] [address] [place] [address] Dementia (HCC)*; Anxiety Allergies Active Allergy Reactions Criticality Noted Date Comments Lisinopril Cough 11/07/2021 Oxaprozin 11/07/2021 Other reaction(s): Other See Comments Other reaction(s): "jittery" "JITTERY" Penicillin V 11/07/2021 Other reaction(s): Rash, Hives Pollen Extract High 12/06/2021 Other reaction(s): ITCHY EYES, SNEEZING, CONGESTION documented as of this encounter (statuses as of 07/02/2024) Medications Cyanocobalamin 500 MCG Oral Tablet Disintegrating Take by mouth 2 Tablets daily . 2 Active [place] Saline Nasal No-Drip Nasal Gel Administer into nostril 2 times a day . 2 Active Saccharomyces boulardii 250 MG Oral Packet Take 1 Capsule by mouth in the morning. 2 Active Macular Health Formula Oral Capsule Take by mouth 1 Capsule 4 times a day . 2 Active Ubiquinone 75 MG Oral Capsule Take by mouth 200 mg daily . Active Aspirin 81 MG Oral Tablet Delayed Release Take 1 Tablet by mouth in the morning. 2 Active Dextromethorphan-g uaiFENesin 10-100 MG/5ML Oral Liquid (Robitussin DM) Take 5 mL by mouth every 6 hours as needed. 3 Active [place] Saline Nasal Gel Nasal Swab Use as needed twice daily 2 Active Acetaminophen 325 MG Oral Capsule Take 2 Tablets by mouth every 6 hours as needed for Pain, Mild. Active Systane Complete PF 0.6 % Ophthalmic Solution (Propylene Glycol (PF)) Instill 1 Drop into eye in the morning and 1 Drop before bedtime. For dry eyes. Active Artificial Tears 0.1-0.3 % Ophthalmic Solution (Dextran 70-Hypromellose) Instill 1 Drop into eye 4 times a day as needed for Irritation (as needed for irritation after eye injection). 10 mL 12 4 Active Insulin Syringe 29G X 1/2" 1 ML (Monoject Insulin Syringe)Indication s:Type 2 diabetes mellitus with hemoglobin A1c goal of less than 8.0% ([facility]) USE FOR LANTUS INJECTION 30 Each 5 4 Active Lactulose 10 GM/15ML Oral Solution (Constulose)Indica tions:Slow transit constipation TAKE 30ML BY MOUTH IN THE MORNING 3000 mL 3 06/15/2024 3:07 PM EST 4 025 Active Clindamycin HCl 300 MG Oral Capsule TAKE 2 CAPSULES BY MOUTH 30-60 MINUTES PRIOR TO DENTAL APPOINTMENT. 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 Discard opened vial after 28 days 20 mL 2 02/28/2024 11:04 AM EDT 4 Active Vitamin D (Cholecalciferol) 25 MCG (1000 UT) Oral Capsule Take 2 Capsules by mouth daily. 4 Active ProAir RespiClick 108 (90 Base) MCG/ACT Inhalation Aerosol Powder Breath Activated Take 2 Puffs by mouth every 6 hours as needed for Shortness of Breath. 1 Each 3 4 Active Atorvastatin Calcium 20 MG Oral Tablet (Lipitor) TAKE ONE TABLET BY MOUTH EVERY DAY 100 Tablet 3 06/02/2024 4:20 PM EST 4 025 Active DULoxetine HCl 30 MG Oral Capsule Delayed Release Particles (Cymbalta) Take 1 Capsule by mouth in the morning. 4 Active Ezetimibe 10 MG Oral Tablet (Zetia) Take 1 Tablet by mouth in the morning. 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 1.5 mg PERINEURAL PRN 08/09/2023 08/08/2024 Active documented as of this encounter (statuses as of 07/02/2024) Active Problems Problem Noted Date Diagnosed Date Stage 3b chronic kidney disease (CKD) 02/18/2024 Atherosclerosis of aorta 02/18/2024 Overview (02/18/2024): Pert CT angio chest 06/26/23 Pancreatic cyst 02/18/2024 Ventral hernia without obstruction or gangrene 0 02/18/2024 Osteopenia 02/18/2024 Grade I diastolic dysfunction 02/18/2024 Cerebral atrophy 02/18/2024 Overview (02/18/2024): Per CT head 11/20/23 Cerebral artery disease 02/18/2024 Encephalomalacia 02/18/2024 Arteriosclerotic dementia, paranoid type 024 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 02/18/2024 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 02/18/2024 Bilateral nonexudative age-related macular degen eration 02/18/2024 History of transcatheter aortic valve replacemen t (TAVR) 07/17/2023 Type 2 DM with CKD stage 3 and hypertension 05/31 Overview: Per CKD protocol Pulmonary nodules 06/12/2023 Paroxysmal atrial fibrillation 11/28/2022 Mitral valve stenosis, moderate 11/16/2022 Mixed hyperlipidemia 07/17/2022 Exudative age-related macula r degeneration, left eye, with active choroidal neovascularization 04/25/2022 Current mild episode of eleazar r depressive disorder without prior episode 04/25/2022 Alzheimer's disease, unspecified (CODE) 12/21/19 Diabetes mellitus type 2 wit h atherosclerosis of arteries of extremities 12/20/2021 Type 2 diabetes mellitus wit h hemoglobin A1c goal of less than 8.0% 11/07/2021 Coronary artery disease invo lving [place] coronary artery of [place] heart without angina pectoris 11/07/2021 Gouty arthropathy 11/07/2021 HTN, goal below 150/90 11/07/2021 History of traumatic brain injury 11/07/2021 History of subarachnoid hemorrhage 11/07/2021 History of bladder cancer 11/07/2021 DM type 2 with diabetic peripheral neuropathy Severe aortic valve stenosis 11/07/2021 documented as of this encounter (statuses as of 07/02/2024) Resolved Problems Problem Noted Date Diagnosed Date Resolved Date Type 2 DM with CKD stage 3 and hypertension 07/17/2023 11/29/2023 Type 2 diabetes mellitus wit h stage 3a chronic kidney disease and hypertension 07/08/2023 02/18/2024 Overview: Per CKD protocol Chronic kidney disease, stage 3a 04/08/2023 02/18/2024 Overview: Per CKD protocol Preauricular lymphadenopathy 11/28/2022 02/18/2024 Memory loss 11/07/2021 12/20/2021 documented as of this encounter (statuses as of 07/02/2024) Immunizations Name Administration Dates Next Due COVID-19 mRNA, LNP-s, No Pre serve, 2-Dose Series (Moderna) 09/02/2020,08/05/2020 COVID-19 mRNA, LNP-s, No Pre serve, 2-Dose Series (Pfizer) 05/30/2021 COVID-19, MRNA-LNP, PF, 30 M CG/0.3 mL, 12 YRS AND ABOVE, IM (PFIZER-Comirnaty) 11/29/2023 COVID-19, mRNA, LNP-s, PF, B ooster, 100mcg/0.5mg (Moderna) 11/25/2021 Covid-19, Mrna, Lnp-s, Pf, B ivalent, 30 Mcg, IM, 12 yrs and above (Pfizer) 04/10/2022 Pneumococcal Conjugate Vacc, 13 Valent (Prevnar) 11/02/2015 Pneumococcal Polysaccharide PPV23 (Pneumovax) 06/11/2007,05/09/1996 Seasonal Influenza Vac., MDV , IM, 0.5 mL (Fluzone) 04/14/2018,03/09/2016,05/02/2015,04/08,03/27/2012,04/23/2001,05/09/1996 Seasonal Influenza, Quadriva lent Hd (Fluzone Hd) 03/11/2023,04/25/2022 Seasonal Influenza, Recombin ant, RIV4, PF, (Flublock) 04/11/2021,04/05/2020,04/27/2019 TDAP (age 10 and older)(Boostrix) 12/05/2021 TDAP, Age 7 and older, IM (Adacel) 05/17/1998 Zoster Vaccine Recombinant (Shingrix) 07/17/2022 ,12/20/2021 documented as of this encounter Social History Tobacco Use Types Packs/Day Years Used Date Smoking Tobacco: Never Passive Smoke Exposure: Past Smokeless Tobacco: Never Alcohol Use Standard Drinks/Week Comments Never 0 (1 standard drink = 0.6 oz pur e alcohol) PHQ-2 Answer Date Recorded PHQ Adult Total Score 1 02/18/2024 Hunger Vital Sign Answer Date Recorded Within the past 12 months, y ou worried that your food would run out before you got the money to buy more. Never true 02/18/20 24 Within the past 12 months, t he food you bought just didn't last and you didn't have money to get more. Never true 02/18/2024 Childcare Answer Date Recorded Do you feel overwhelmed with taking care of a child, family member or friend? No 02/18/2024 Does your family need help f inding childcare? (Household - for ages 0-17 years) Not on file 02/18/2024 Clothing Answer Date Recorded Have you been unable to get clothing when it was really needed? No 02/18/2024 Is your family able to get c lothes or diapers when needed? (Household - for ages 0-17 years) Not on file 02/18/2024 Personal Safety Answer Date Recorded Do you feel unsafe or have concerns for your saf ety? No 02/18/2024 Do you have concerns for you r family's safety? (Household - for ages 0-17 years) Not on file 02/18/2024 Utilities Answer Date Recorded Do you have trouble paying y our heating, water, or electric bill? No 02/18/2024 Is your family able to pay t he heat, water, or electric bill? (Household - for ages 0-17 years) Not on file 02/18/2024 Does your family have access to good internet? (Household - for ages 0-17 years) Not on file 02/18/2024 Employment Status Answer Date Recorded Are you unemployed or without regular income? No 02/18/2024 Does the household have a re gular source of income? (Household - for ages 0-17 years) Not on file 02/18/2024 Social Connections Answer Date Recorded How often do you feel lonely or isolated from th ose around you? Never 02/18/2024 Financial Resource Strain Answer Date R ecorded Do you have any trouble payi ng for your medications, or do you think you might in the future? No 02/18/2024 Does your family have troubl e paying for medicine? (Household - for ages 0-17 years) Not on file 02/18/2024 Transportation Needs Answer Date Record ed READ ONLY Do you have troubl e getting a ride to medical visits or work? Never True 02/18/2024 Does your family have a hard time getting a ride to doctors visits? (Household - for ages 0-17 years) Not on file 02/18/2024 Has lack of transportation k ept you from medical appointments, meetings, work, or from getting things needed for daily living? Check all that apply. No 02/18/2024 Do you (or your family) have trouble finding or paying for a ride (transportation)? (Household - for ages 0-17 years) Not on file 02/18/2024 Housing Stability Answer Date Recorded Do you currently live in a s helter or have no steady place to sleep at night? No 02/18/2024 READ ONLY Do you think you a re at risk of becoming homeless? No 02/18/2024 Does your family worry about paying for your home or becoming homeless? (Household - for ages 0-17 years) Not on file 0 02/18/2024 Are you homeless or worried that you might be in the future? No 02/18/2024 Are you (or your family) aldo eless or worried that you might be in the future? (Household - for ages 0-17 years) Not on file Food Insecurity Answer Date Recorded Do you need food for this week? No 02/18/2024 Are you able to get enough f ood for your family? (Household - for ages 0-17 years) Not on file 02/18/2024 Does your family need food t his week? (Household - for ages 0-17 years) Not on file 02/18/2024 Do you always have enough fo od for your family? (Household - for ages 0-17 years) Not on file 02/18/2024 Comments No Sex and Gender Information Value Date Recorded Sex Assigned at Female 01/03/2022 4:01 PM EDT Legal Sex Female 11:52 AM EST Gender Identity Female 01/03/2022 4:01 PM EDT Sexual Orientation Straight 01/03/2022 4: 01 PM EDT documented as of this encounter Plan of Treatment Upcoming Encounters Date Type Department Care Team (Late st Contact Info) Description 07/14/2024 12:30 PM EST Home Visit [facility], [facility] [address] [id number] Chuy Ribeiro, RN [address] [place] [id number] 07/23/2024 1:00 PM EST Home Visit [facility] [place], [facility] [address] [address] Deshawn Painter PA-C [address] [place] [address] 08/27/2024 3:15 PM EST Office Visit Ophthalmology, [facility] [address] [address] Ruddy Jovel DO [address] [place] [address] 02/17/2025 2:00 PM EDT Home Visit Care at Home [address] [facility] [place] [address] Disha Butts PA-C [address] [facility] [address] Scheduled Orders Name Type Priority Associated Diagnoses Orde r Schedule COMPREHENSIVE METABOLIC PANEL Lab Routine Dementia (HCC) Anxiety Expected: 07/02/2024, Expires: 07/02/2025 CBC Lab Routine Dementia (HCC) Anxiety Expected: 07/02/2024, Expires: 07/02/2025 Health Maintenance Due Date Last Done Comments COVID-19 Vaccine ( season) 2024 11/29/2023, 04/10/2022, 11/25/2021, Additional history exists Influenza Vaccine (FLU shot) (#1) 2024 03/11/2023, 04/25/2022, 04/11/2021, Additional history exists CKD PHOS USE SMARTSET 95949 06/12/202405/31, 06/12/2023, 05/07/2021, Additional history exists Diabetic Eye Exam 08/14/2024 08/14/2023, , 02/05/2022, Additional history exists Diabetic Foot Exam 11/28/2024 11/29/2023, 0 11/16/2022, 12/20/2021 HbA1c 12/28/2024 06/30/2024, 09/0 09/2023, 02/04/2024, Additional history exists Albumin/Creatinine Ratio 02/03/2025 024, 11/16/2022, 01/23/2022 Adult Wellness Visit 02/17/2025 02/18/2024, 02/12/20 23 Depression Monitoring 02/17/2025 02/18/2024 CKD HGB USE SMARTSET [id number] 06/30/202506/30, 03/04/2024, 10/16/2023, Additional history exists DXA Scan 10/08/2027 10/07/2020, 05/02/2017 DTap/Tdap Vaccines (3 - Td or Tdap) 12/06/2031 12/05/2021, 05/17/1998 Pneumococcal Vaccine: 50+ Years Completed 11/02/2015, 06/11/2007, 05/09/1996 Zoster Vaccines Completed 07/17/2022, 12/20/2021 HPV (Gardasil) Vaccine Aged Out No lo nger eligible based on patient's age to complete this topic Hepatitis B Vaccine Aged Out No longe r eligible based on patient's age to complete this topic MENINGOCOCCAL (MENACTRA/MENVEO) Aged Out No longer eligible based on patient's age to complete this topic documented as of this encounter Medical Devices Not on filedocumented as of this encounter Visit Diagnoses Diagnosis Dementia (HCC)- Primary Dementia, unspecified, without behavioral disturbance Anxiety Anxiety state, unspecified documented in this encounter Advance Directives Documents on File Type Date Recorded Patient Small Business Consultant Expl anation Advance Directives and Living Will 07/09/2020 ADVANCE DIRECTIVE / LIVING WILL Healthcare Agents on File Name Relationship Healthcare Agent Relationshi p Communication Cassie Diaz Adult Child Health Care Repr esentative (appointed verbally by patient or by statute hierarchy) Care Teams Digital Forensics Examiner Relationship Specialty Start Date End Date Ravin Mejia DO [address] [place] [address] PCP - General Internal Medicine 12/12/23 documented as of this encounter
--- OUTSIDE RECORDS SUMMARY | 2024-07-05 13:15 | External Medical Summary ---
Author Name Unknown Address Unknown Organization [id number]:LABORATORY [facility] [place] [address] [place] [address] Laboratory Report Ordering Provider Test Date Status ANGELIKA BROWNING 06/30/2024 12:10:00 Final Observation Date Value Abnormality Reference (Units ) Status WBC, Total 06/30/2024 12:10:00 7.80 4.00-10.8 0 (K/uL) Final RBC 06/30/2024 12:10:00 4.45 3.85-5.15 (M/uL) Final Hemoglobin 06/30/2024 12:10:00 12.5 12.0-15.3 (g/dL) Final HCT 06/30/2024 12:10:00 39.0 36.0-45.2 (%) Final MCV 06/30/2024 12:10:00 87.6 81.5-97.5 (fL) Final MCH 06/30/2024 12:10:00 28.1 27.0-34.0 (pg) Final MCHC 06/30/2024 12:10:00 32.1 32.0-36.0 (g/dL) Final RDW 06/30/2024 12:10:00 16.0 11.5-15.5 (%) Final Platelets 06/30/2024 12:10:00 206 140-400 (K /uL) Final MPV 06/30/2024 12:10:00 11.2 6.6-11.1 ( fL) Final Performing Location [facility]ORY [facility] [address] [place] [address]
--- OUTSIDE RECORDS SUMMARY | 2024-07-05 13:15 | External Medical Summary ---
Author Name Unknown Address Unknown Organization [id number]:[facility]ATORY [facility] [place] [address] - [address] [place] [address] Laboratory Report Ordering Provider Test Date Status WENDY GREEN 07/02/2024 06:30:00 Final Observation Date Value Abnormality Reference (Units ) Status WBC, Total 07/02/2024 06:30:00 8.31 4.00-10.8 0 (K/uL) Final RBC 07/02/2024 06:30:00 4.43 3.85-5.15 (M/uL) Final Hemoglobin 07/02/2024 06:30:00 12.4 12.0-15.3 (g/dL) Final HCT 07/02/2024 06:30:00 38.6 36.0-45.2 (%) Final MCV 07/02/2024 06:30:00 87.1 81.5-97.5 (fL) Final MCH 07/02/2024 06:30:00 28.0 27.0-34.0 (pg) Final MCHC 07/02/2024 06:30:00 32.1 32.0-36.0 (g/dL) Final RDW 07/02/2024 06:30:00 15.9 11.5-15.5 (%) Final Platelets 07/02/2024 06:30:00 231 140-400 (K /uL) Final MPV 07/02/2024 06:30:00 10.9 6.6-11.1 ( fL) Final Performing Location LAB[facility]ATORY [facility] [place] [address] - [address] [place] [address]
--- OUTSIDE RECORDS SUMMARY | 2024-07-05 13:15 | External Medical Summary ---
Author Name Unknown Address Unknown Organization [id number]:[facility] [address] - [address] [place] [address] Laboratory Report Ordering Provider Test Date Status ANGELIKA BROWNING 06/30/2024 12:10:00 Final Observation Date Value Abnormality Reference (Units ) Status BUN 06/30/2024 12:10:00 33 Above high normal 6-20 (mg/dL) Final Creatinine 06/30/2024 12:10:00 1.7 Above high normal 0.5-1.0 (mg/dL) Final Glomerular filtration rate/1.73 sq M.predicted [Volume Rate/Area] in Serum, Plasma or Blood by Creatinine-based formula (CKD-EPI) 06/30/2024 12:10:00 30 Below low normal >=60 (mL/min) Final eGFR is calculated based on the CKD-EPI 2020 equation. Sodium 06/30/2024 12:10:00 141 135-146 (m mol/L) Final Potassium 06/30/2024 12:10:00 3.6 3.5-5.1 (m mol/L) Final Cl 06/30/2024 12:10:00 95 Below low normal 98- 107 (mmol/L) Final CO2 06/30/2024 12:10:00 30 22-32 (mmo l/L) Final Anion gap 06/30/2024 12:10:00 16 Above high normal 7- 15 (mmol/L) Final Glucose 06/30/2024 12:10:00 150 Above high normal 70 -120 (mg/dL) Final Albumin 06/30/2024 12:10:00 4.2 3.8-5.0 (g /dL) Final AST (Aspartate aminotransferase) 06/30/2024 12:10:00 28 10-35 (U/L) Fin al Alk Phos 06/30/2024 12:10:00 124 35-130 (U/ L) Final Bilirubin, Total 06/30/2024 12:10:00 1.1 <=1 .2 (mg/dL) Final Calcium 06/30/2024 12:10:00 12.3 Above high normal 8. 4-10.2 (mg/dL) Final Protein 06/30/2024 12:10:00 6.4 6.0-8.3 (g /dL) Final ALT (Alanine aminotransferase) 06/30/2024 12:10:00 21 10-35 (U/L) Jeffrey richter Performing Location LABORATORY [place] [address] [facility] [address]
--- OUTSIDE RECORDS SUMMARY | 2024-07-05 13:15 | External Medical Summary ---
Author Name Unknown Address Unknown Organization [id number][facility] [place] [address] [place] [address] Laboratory Report Ordering Provider Test Date Status RIMMA BROWNINGT 06/30/2024 12:10:00 Final Observation Date Value Abnormality Reference (Units ) Status Vitamin B12 06/30/2024 12:10:00 >2000 Above high normal 232-1245 (pg/mL) Final Performing Location [facility] [place] [address] [place] [address]
--- OUTSIDE RECORDS SUMMARY | 2024-07-05 13:15 | External Medical Summary ---
Author Name Unknown Address Unknown Organization [id number]:LABORATORY [facility] [place] - [address] [place] [address] Laboratory Report Ordering Provider Test Date Status ANGELIKA BROWNING 06/30/2024 12:10:00 Final Deficient: <20 ng/mL
Ins ufficient: 20-29 ng/mL
Recommended/Optimum:30-50 ng/mL

Vitamin D intoxication is rare. If suspicious of Vitamin D toxicity, evaluation of serum Calcium and PTH is recommended. Observation Date Value Abnormality Reference (Units ) Status 25-OH Vitamin D total 06/30/2024 12:10:00 29 >19 (ng/mL) Final Performing Location LABORATORY [facility] [place] - [address] [place] [address]
--- OUTSIDE RECORDS SUMMARY | 2024-07-05 13:15 | External Medical Summary ---
Author Name Unknown Address Unknown Organization [id number]:LABORATORY [facility] [place] - [address] [facility] [address] Laboratory Report Ordering Provider Test Date Status ANGELIKA BROWNING 06/30/2024 12:10:00 Final Observation Date Value Abnormality Reference (Units ) Status HbA1C 06/30/2024 12:10:00 5.8 Above high normal 4. 0-5.6 (%) Final The use of HbA1c to monitor glycemic status is based on normal hemoglobin and HbA composition. This test should not be used in patients with abnormal hemoglobin that affects the half life of the red blood cell or the in vivo glycation rates. Glucose, estimated average 06/30/2024 12:10:00 120 <126 (mg/dL) Final Performing Location LABORATORY [facility] [place] - [address] [facility] [address]
--- OUTSIDE RECORDS SUMMARY | 2024-07-05 13:15 | External Medical Summary ---
Author Name Unknown Address Unknown Organization [id number] [facility] [address] [place] [address] Laboratory Report Ordering Provider Test Date Status CESAR BROWNINGECHT 06/30/2024 12:10:00 Final Observation Date Value Abnormality Reference (Units ) Status Bilirubin, Direct 06/30/2024 12:10:00 0.5 Above high normal 0.0-0.3 (mg/dL) Final Performing Location LABORATORY [place] [address] - [address] [place] [address]
[2024-07-05 13:16] VITALS: TEMP 98.4
--- OUTSIDE RECORDS SUMMARY | 2024-07-05 13:16 | External Medical Summary ---
Author Name Unknown Address Unknown Organization [id number]:LABORATORY [facility] - [address] [place] [address] Laboratory Report Ordering Provider Test Date Status RIMMA BROWNINGT 06/30/2024 12:10:00 Final Observation Date Value Abnormality Reference (Units ) Status TSH 06/30/2024 12:10:00 2.21 0.27-4.20 (uIU/mL) Final Performing Location LABORATORY C - [address] [place] [address]
--- OUTSIDE RECORDS SUMMARY | 2024-07-05 13:16 | External Medical Summary | Summary of Care ---
Author Name Unknown Organization [facility] Address [address] [place] [address] Phone [phone] Care Team Providers Care Sugar Refinery Supervisor Name Role Phone Ravin Mejia DO Primary Care Provider Encounter Details Date Type Department Care Team (Late st Contact Info) Description 04/30/2024 3:00 PM EDT Office Visit Ophthalmology, [facility] [address] [place] [address] Ruddy Jovel DO [address] [place] [address] Both eyes affected by mild nonproliferative diabetic retinopathy with macular edema, associated with type 2 diabetes mellitus (HCC)* Allergies Active Allergy Reactions Criticality Noted Date Comments Lisinopril Cough 11/07/2021 Oxaprozin 11/07/2021 Other reaction(s): Other See Comments Other reaction(s): "jittery" "JITTERY" Penicillin V 11/07/2021 Other reaction(s): Rash, Hives Pollen Extract High 12/06/2021 Other reaction(s): ITCHY EYES, SNEEZING, CONGESTION documented as of this encounter (statuses as of 04/30/2024) Medications Medication Sig Dispensed Refills Start Date End Date Status Cyanocobalamin 500 MCG Oral Tablet Disintegrating Take by mouth 2 Tablets daily . 11/07/2021 Active Claridge Saline Nasal No-Drip Nasal Gel Administer into nostril 2 times a day . 11/07/2021 Active Saccharomyces boulardii 250 MG Oral Packet Take 1 Capsule by mouth in the morning. 11/07/2021 Active Macular Health Formula Oral Capsule Take by mouth 1 Capsule 4 times a day . 11/07/2021 Active Ubiquinone 75 MG Oral Capsule Take by mouth 200 mg daily . Active Aspirin 81 MG Oral Tablet Delayed Release Take 1 Tablet by mouth in the morning. 02/06/2022 Active Dextromethorphan-gua iFENesin 10-100 MG/5ML Oral Liquid (Robitussin DM) Take 5 mL by mouth every 6 hours as needed. 11/22/2022 Active Claridge Saline Nasal Gel Nasal Swab Use as needed twice daily 12/06/2021 Active Acetaminophen 325 MG Oral Capsule Take [...] irritation after eye injection). 10 mL 12 08/09/2023 Active Insulin Syringe 29G X 1/2" 1 ML (Monoject Insulin Syringe)Indications: Type 2 diabetes mellitus with hemoglobin A1c goal of less than 8.0% ([facility]) USE FOR LANTUS INJECTION 30 Each 5 10/30/2023 Active Ezetimibe 10 MG Oral Tablet (Zetia) TAKE 1 TABLET BY MOUTH ONCE DAILY 30 Tablet 5 10/30/2023 Active Lactulose 10 GM/15ML Oral Solution (Constulose)Indicati ons:Slow transit constipation TAKE 30ML BY MOUTH IN THE MORNING 3000 mL 3 11/29/2023 11/28/2024 Active Clindamycin HCl 300 MG Oral Capsule TAKE 2 CAPSULES BY MOUTH 30-60 MINUTES PRIOR TO DENTAL APPOINTMENT. 11/07/2023 Active Amiodarone HCl 200 MG Oral Tablet (Cordarone)Indicatio ns:Paroxysmal atrial fibrillation (HCC) TAKE ONE TABLET BY MOUTH EVERY MORNING 100 Tablet 3 01/01/2024 12/31/2024 Active Allopurinol 100 MG Oral Tablet (Zyloprim) TAKE ONE TABLET BY MOUTH EVERY DAY IN THE MORNING 100 Tablet 1 01/20/2024 01/19/2025 Active Furosemide 20 MG Oral Tablet (Lasix) TAKE ONE-HALF TABLET BY MOUTH EVERY MORNING 50 Tablet 1 01/31/2024 01/30/2025 Active Lantus 100 UNIT/ML Subcutaneous SolutionIndications: Type 2 diabetes mellitus with stage 3a chronic kidney disease and hypertension (HCC),Type 2 DM with CKD stage 3 and hypertension (HCC),DM type 2 with diabetic peripheral neuropathy (HCC) Inject 12 Units under the skin at bedtime. Discard opened vial after 28 days 20 mL 2 02/04/2024 Active Vitamin D (Cholecalciferol) 25 MCG (1000 UT) Oral Capsule Take 2 Capsules by mouth daily. 02/07/2024 Active ProAir RespiClick 108 (90 Base) MCG/ACT Inhalation Aerosol Powder Breath Activated Take 2 Puffs by mouth every 6 hours as needed for Shortness of Breath. 1 Each 3 02/21/2024 Active Atorvastatin Calcium 20 MG Oral Tablet (Lipitor) TAKE ONE TABLET BY MOUTH EVERY DAY 100 Tablet 3 02/24/2024 02/23/2025 Active DULoxetine HCl 30 MG Oral Capsule Delayed Release Particles (Cymbalta) Take 1 Capsule by mouth in the morning. 04/13/2024 Active Hospital, Clinic, or Other Facility Administered [...] as of this encounter (statuses as of 04/30/2024) Active Problems Problem Noted Date Diagnosed Date Stage 3b chronic kidney disease (CKD) 02/18/2024 Atherosclerosis of aorta 02/18/2024 Overview: Pert CT angio chest 06/26/23 Pancreatic cyst 02/18/2024 Ventral hernia without obstruction or gangrene 0 02/18/2024 Osteopenia 02/18/2024 Grade I diastolic dysfunction 02/18/2024 Cerebral atrophy 02/18/2024 Overview: Per CT head 11/20/23 Cerebral artery disease [...] 8.0% 11/07/2021 Coronary artery disease invo lving [place] coronary artery of [place] heart without angina pectoris 11/07/2021 Gouty arthropathy 11/07/2021 HTN, goal below 150/90 11/07/2021 History of traumatic brain injury 11/07/2021 History of subarachnoid hemorrhage 11/07/2021 History of bladder cancer 11/07/2021 DM type 2 with diabetic peripheral neuropathy Severe aortic valve stenosis 11/07/2021 documented as of this encounter (statuses as of 04/30/2024) Resolved Problems Problem Noted Date Diagnosed Date [...] as of this encounter (statuses as of 04/30/2024) Immunizations Name Administration Dates Next Due COVID-19 mRNA, LNP-s, No Pre serve, 2-Dose Series (Moderna) 09/02/2020,08/05/2020 COVID-19 mRNA, LNP-s, No Pre serve, 2-Dose Series (Pfizer) 05/30/2021 COVID-19, MRNA-LNP, PF, 30 M CG/0.3 mL, 12 YRS AND ABOVE, IM ([employer]) 11/29/2023 COVID-19, mRNA, LNP-s, PF, B ooster, [...] ages 0-17 years) Not on file 02/18/2024 Sex and Gender Information Value Date Recorded Sex Assigned at Female 01/03/2022 4:01 PM EDT Gender Identity Female 01/03/2022 4:01 PM EDT Sexual Orientation Straight 01/03/2022 4: 01 PM EDT Job Start Date Occupation Industry Not on file Not on file Not on file documented as of this encounter Progress Notes * Cessna, Christopher T, DO - 04/30/2024 3:00 PM EDT [facility] [place] Nursing Notes: Kristan Arenas LPN 04/30/24 1507 Signed Sofia Quarles is a 88 year old year old female who presents for intermediate non exudative AMD OU. Last Office Visit: 01/22/2024 (in office), Visit date not found (telemedicine) Patient currently states no change in vision. Are you diabetic? Yes. Do you check your blood sugars daily? NO. Last Hemoglobin A1C: Lab Results Component Value Date/Time HGBA1C 6.1 (H) 03/04/2024 12:40 PM HGBA1C 6.8 (H) 02/04/2024 05:17 PM HGBA1C 6.1 (H) 10/16/2023 03:10 PM HGBA1C 7.8 (H) 01/16/2021 06:39 AM HGBA1C 7.0 10/14/2020 07:43 AM HGBA1C 7.1 05/23/2020 06:[address]? no OCT image(s) of both eyes acquired and filed/scanned into chart. Base Eye Exam Visual Acuity (Snellen - Linear) Right Left Dist sc 20/80 -1 20/70 -1 Dist ph sc NI NI Tonometry (Tonopen, 3:06 PM) Right Left Pressure 18 16 Pupils Pupils APD Right PERRL None Left PERRL None Visual Peres (Counting fingers) Right Left Restrictions Partial outer superior temporal, inferior temporal, superior nasal, inferior nasal deficiencies Partial outer superior temporal, inferior temporal, superior nasal, inferior nasal deficiencies Extraocular Movement Right Left Full, Ortho Full, Ortho Dilation Both eyes: 0.5% Proparacaine @ 3:05 PM Dilation #2 Both eyes: 1.0% Mydriacyl, 2.5% Phenylephrine @ 3:05 PM Dilation Comments Patient cautioned that effects of dilation may last 2-7 hours dependant upon individual reaction. It was discussed that driving while dilated is not recommended. EXTERNAL: The ocular adnexae are unremarkable. SLE: Lids/Lashes: wnl OU Conjunctiva/Sclera: quiet OU Cornea: clear OU Anterior Chamber: deep and quiet OU Iris: normal OU; no NVI OU Lens: PCIOL OU Dilated fundus exam OD: vitreous: pvd optic nerve: 0.5, no edema/pallor/NVD macula: drusen, pig clumping vessels: wnl periphery: mild computer technical support specialist, +flat nevus superiorly [id number]--ww op/srfluid, no RT/RD Dilated fundus exam OS: vitreous: pvd optic nerve: 0.5, no edema/pallor/NVD macula: drusen, pig clumping vessels: wnl periphery: mild computer technical support specialist, temporal pig/reticular change, no RT/RD OCT Interpretation: OD: drusen, resolved trace DME - STABLE, prior STABLE, prior no sig change, prior improved 78um, prior worse 49um, prior no sig change, prior stable OS: drusen, resolved DME- STABLE, prior improved 76um prior worse 33um prior worse 67um prior no sig change, prior worse 28um prior improved 21um, prior improved 20um A/P: 1. Mild Nonproliferative Diabetic Retinopathy OU -h/o DME OU OD: -Avastin OD 08/09/23 -24 weeks improved/dry OS: Avastin 12/12/2023 -6 weeks improved/dry -recommend HgbA1C <7, BP and lipid control. 2. 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 Posterior Vitreous Detachment OU -no RT/RD -advised to return to clinic if she should experience worsening or new floaters, flashes of light, a shadow in the periphery, or decrease in vision. 4. Choroidal nevus OD -low risk 5. Pseudophakia OU -stable Ruddy Jovel DO CC: Mabel Escalante, OD CC: PCP: Ravin Mejia DO documented in this encounter Nursing Notes * Kristan Arenas LPN - 04/30/2024 2:51 PM EDT Sofia Quarles is a 88 year old year old female who presents for intermediate non exudative AMD OU. Last Office Visit: 01/22/2024 (in office), Visit date not found (telemedicine) Patient currently states no change in vision. Are you diabetic? Yes. Do you check your blood sugars daily? NO. Last Hemoglobin A1C: Lab Results Component Value Date/Time HGBA1C 6.1 (H) 03/04/2024 12:40 PM HGBA1C 6.8 (H) 02/04/2024 05:17 PM HGBA1C 6.1 (H) 10/16/2023 03:10 PM HGBA1C 7.8 (H) 01/16/2021 06:39 AM HGBA1C 7.0 10/14/2020 07:43 AM HGBA1C 7.1 05/23/2020 06:[address] no OCT image(s) of both eyes acquired and filed/scanned into chart. documented in this encounter Plan of Treatment Upcoming Encounters Date Type Department Care Team (Late st Contact Info) Description 08/27/2024 3:15 PM EST Office Visit Ophthalmology, [facility] [address] [facility] [place] [address] Ruddy Jovel DO [address] [facility] [place] [address] 02/17/2025 2:00 PM EDT Home Visit Care at Home [address] [place] [address] Disha Butts PA-C [address] [place] [address] Scheduled Orders Name Type Priority Associated Diagnoses Orde r Schedule RETINA SCAN DIAGNOSTIC IMAGE, POSTERIOR Procedures Routine Both eyes affected by mild nonproliferative diabetic retinopathy with macular edema, associated with type 2 diabetes mellitus (HCC) Ordered: 04/30/2024 Health Maintenance Due Date Last Done Comments COVID-19 Vaccine ( season) 2024 11/29/2023, 04/10/2022, 11/25/2021, Additional history exists Influenza Vaccine (FLU shot) (#1) 2024 03/11/2023, 04/25/2022, 04/11/2021, Additional history exists CKD PHOS USE SMARTSET 50353 06/12/202405/31, 06/12/2023, 05/07/2021, Additional history exists Diabetic Eye Exam 08/14/2024 08/14/2023, , 02/05/2022, Additional history exists HbA1c 09/01/2024 03/04/2024, 08/0 11/2023, 10/16/2023, Additional history exists Diabetic Foot Exam 11/28/2024 11/29/2023, 0 11/16/2022, 12/20/2021 Albumin/Creatinine Ratio 02/03/2025 082 024, 11/16/2022, 01/23/2022 Adult Wellness Visit 02/17/2025 02/18/2024, 02/12/20 23 Depression Monitoring 02/17/2025 02/18/2024 CKD HGB USE SMARTSET 75113 03/04/202503/04, 10/16/2023, 10/16/2023, Additional history exists DXA Scan 10/08/2027 10/07/2020, 05/02/2017 DTap/Tdap Vaccines (3 - Td or Tdap) 12/06/2031 12/05/2021, 05/17/1998 Pneumococcal Vaccine: 65+ Years Completed 11/02/2015, 06/11/2007, 05/09/1996 Zoster Vaccines [...] as of this encounter Visit Diagnoses Diagnosis Both eyes affected by mild nonproliferative diabetic retinopathy with macular edema, associated with type 2 diabetes mellitus (HCC)- Primary documented in this encounter Advance Directives Documents on File Type Date Recorded Patient Conventions Assistant Expl anation Advance Directives and Living Will 07/09/2020 ADVANCE DIRECTIVE / LIVING WILL Healthcare Agents on File Name Relationship Healthcare Agent [facility] p Communication Cassie Diaz Adult Child Health Care Repr esentative (appointed verbally by patient or by statute hierarchy) Care Teams Sugar Refinery Supervisor Relationship Specialty Start Date End Date Ravin Mejia DO [address] [place] [address] PCP - General Internal Medicine 12/12/23 documented as of this encounter
--- OUTSIDE RECORDS SUMMARY | 2024-07-05 13:16 | External Medical Summary | Summary of Care ---
Author Name Unknown Organization [facility] Address [address] [place] [address] Phone [phone] Care Team Providers Care Medical Education Coordinator Name Role Phone Daisy Mejia DO Primary Care Provider [phone] Reason for Visit * Reason Onset Date Comments Medication Refill 06/10/2024 Encounter Details Date Type Department Care Team (Late st Contact Info) Description 06/10/2024 Refill Family Practice [address] [place] [address] [place] [phone] Daisy Mejia DO [address] [place], [place] [phone] Allergies Active Allergy Reactions Criticality Noted Date Comments Lisinopril Cough 11/07/2021 Oxaprozin 11/07/2021 Other reaction(s): Other See Comments Other reaction(s): "jittery" "JITTERY" Penicillin V 11/07/2021 Other reaction(s): Rash, Hives Pollen Extract High 12/06/2021 Other reaction(s): ITCHY EYES, SNEEZING, CONGESTION documented as of this encounter (statuses as of 06/11/2024) Medications Cyanocobalamin 500 MCG Oral Tablet Disintegrating Take by mouth 2 Tablets daily . 11/08/19 22 Active [place] Saline Nasal No-Drip Nasal Gel Administer into nostril 2 times a day . 11/08/19 22 Active Saccharomyces boulardii 250 MG Oral Packet Take 1 Capsule by mouth in the morning. 11/08/19 22 Active Macular Health Formula Oral Capsule Take by mouth 1 Capsule 4 times a day . 11/08/19 22 Active Ubiquinone 75 MG Oral Capsule Take by mouth 200 mg daily . Active Aspirin 81 MG Oral Tablet Delayed Release Take 1 Tablet by mouth in the morning. 02/07/20 22 Active Dextromethorphan-g uaiFENesin 10-100 MG/5ML Oral Liquid (Robitussin DM) Take 5 mL by mouth every 6 hours as needed. 11/23/19 23 Active [place] Saline Nasal Gel Nasal Swab Use as needed twice daily 12/07/19 22 Active Acetaminophen 325 MG Oral Capsule Take [...] irritation after eye injection). 10 mL 12 08/09/19 24 Active Insulin Syringe 29G X 1/2" 1 ML (Monoject Insulin Syringe)Indication s:Type 2 diabetes mellitus with hemoglobin A1c goal of less than 8.0% ([facility]) USE FOR LANTUS INJECTION 30 Each 5 10/30/19 24 Active Lactulose 10 GM/15ML Oral Solution (Constulose)Indica tions:Slow transit constipation TAKE 30ML BY MOUTH IN THE MORNING 3000 mL 3 4 8:35 AM EDT 11/29/19 24 025 Active Clindamycin HCl 300 MG Oral Capsule TAKE 2 CAPSULES BY MOUTH 30-60 MINUTES PRIOR TO DENTAL APPOINTMENT. 11/07/19 24 Active Amiodarone HCl 200 MG Oral Tablet (Cordarone)Indicat ions:Paroxysmal atrial fibrillation (HCC) TAKE ONE TABLET BY MOUTH EVERY MORNING 100 Tablet 3 4 9:51 AM EDT 01/01/20 24 025 Active Allopurinol 100 MG Oral Tablet (Zyloprim) TAKE ONE TABLET BY MOUTH EVERY DAY IN THE MORNING 100 Tablet 1 4 9:44 AM EDT 01/20/20 24 025 Active Furosemide 20 MG Oral Tablet (Lasix) TAKE ONE-HALF TABLET BY MOUTH EVERY MORNING 50 Tablet 1 4 5:34 PM EST 01/31/20 24 025 Active Lantus 100 UNIT/ML Subcutaneous SolutionIndication s:Type 2 diabetes mellitus with stage 3a chronic kidney disease and hypertension (HCC),Type 2 DM with CKD stage 3 and hypertension (HCC),DM type 2 with diabetic peripheral neuropathy (HCC) Inject 12 Units under the skin at bedtime. Discard opened vial after 28 days 20 mL 2 4 11:04 AM EDT 02/04/20 24 Active Vitamin D (Cholecalciferol) 25 MCG (1000 UT) Oral Capsule Take 2 Capsules by mouth daily. 02/07/20 24 Active ProAir RespiClick 108 (90 Base) MCG/ACT Inhalation Aerosol Powder Breath Activated Take 2 Puffs by mouth every 6 hours as needed for Shortness of Breath. 1 Each 3 02/21/20 24 Active Atorvastatin Calcium 20 MG Oral Tablet (Lipitor) TAKE ONE TABLET BY MOUTH EVERY DAY 100 Tablet 3 4 4:20 PM EST 02/24/20 24 025 Active DULoxetine HCl 30 MG Oral Capsule Delayed Release Particles (Cymbalta) Take 1 Capsule by mouth in the morning. 04/13/20 24 Active Ezetimibe 10 MG Oral Tablet (Zetia) Take 1 Tablet by mouth in the morning. 30 Tablet 5 06/11/20 24 Active Ezetimibe 10 MG Oral Tablet (Zetia) TAKE 1 TABLET BY MOUTH ONCE DAILY 30 Tablet 5 10/30/19 24 024 Discontin ued(Refil l) Hospital, Clinic, or Other Facility Administered Medication [...] as of this encounter (statuses as of 06/11/2024) Active Problems Problem Noted Date Diagnosed Date [...] 8.0% 11/07/2021 Coronary artery disease invo lving [place] coronary artery of [place] heart without angina pectoris 11/07/2021 Gouty arthropathy 11/07/2021 HTN, goal below 150/90 11/07/2021 History of traumatic brain injury 11/07/2021 History of subarachnoid hemorrhage 11/07/2021 History of bladder cancer 11/07/2021 DM type 2 with diabetic peripheral neuropathy Severe aortic valve stenosis 11/07/2021 documented as of this encounter (statuses as of 06/11/2024) Resolved Problems Problem Noted Date Diagnosed Date [...] as of this encounter (statuses as of 06/11/2024) Immunizations Name Administration Dates Next Due COVID-19 mRNA, LNP-s, No Pre serve, 2-Dose Series (Moderna) 09/02/2020,08/05/2020 COVID-19 mRNA, LNP-s, No Pre serve, 2-Dose Series (Pfizer) 05/30/2021 COVID-19, MRNA-LNP, PF, 30 M CG/0.3 mL, 12 YRS AND ABOVE, IM ([facility]) 11/29/2023 COVID-19, mRNA, LNP-s, PF, B ooster, [...] PM EDT documented as of this encounter Miscellaneous Notes * Telephone Encounter - Shameka Douglas RP - 06/11/2024 12:13 PM EST Signed Prescriptions: Disp Refills Ezetimibe 10 MG Oral Tablet (Zetia) 30 Tab*5 Sig: Take 1 Tablet by mouth in the morning. Authorizing Provider: DAISY MEJIA Ordering User: SHAMEKA DOUGLAS * Telephone Encounter - Brenda Villagran, chemical operator - 06/10/2024 9:51 AM EST Did you pend patient's preferred pharmacy and medication before forwarding?yes Pharmacy: [facility] [address] Pending Prescriptions: Disp Refills Ezetimibe 10 MG Oral Tablet (Zetia) 30 Tab*5 Sig: Take 1 Tablet by mouth in the morning. Last Visit: 02/04/2024 (in office), 12/16/2023 (telemedicine) Next Visit: Visit date not found If no future appointments scheduled, and last appointment is greater than a year ago, please schedule patient for a follow-up appointment Last date the medication was ordered: 10/29 Is this request for a controlled substance?No Urine Drug Screen:No results found for this or any previous visit. Patient Phone Numbers Labs: Lab Results Component Value Date/Time CREAT 1.7 (H) 03/04/2024 07:45 AM CREAT 0.89 07/11/2023 06:10 AM POTASSIUM 4.0 03/04/2024 07:45 AM POTASSIUM 4.1 07/11/2023 06:10 AM TSH 2.35 03/04/2024 07:45 AM LDL 57 03/04/2024 07:45 AM LDLCALC 181 10/14/2020 07:43 AM ALT 33 10/16/2023 03:10 PM HGBA1C 6.1 (H) 03/04/2024 12:40 PM HGBA1C 7.8 (H) 01/16/2021 06:39 AM documented in this encounter Plan of Treatment Upcoming Encounters Date Type Department Care Team (Late st Contact Info) Description 06/17/2024 12:30 PM EST [facility] Visit [facility] [address] [place] [id number] Chuy Ribeiro, RN [address] [place] [phone] 07/23/2024 1:00 PM EST [facility] Visit [facility] [address] [place] [address] Deshawn Painter PA-C [address] [place] [phone] 08/27/2024 3:15 PM EST Office Visit Ophthalmology, [facility] [address] [place] [address] Ruddy Jovel DO [address] [place] [phone] 02/17/2025 2:00 PM EDT [facility] [address] [facility] [address] Disha Butts PA-C [address] [place] [address] Health Maintenance Due Date Last Done Comments COVID-19 Vaccine ( season) 2024 11/29/2023, 04/10/2022, 11/25/2021, Additional history exists Influenza Vaccine (FLU shot) (#1) 2024 03/11/2023, 04/25/2022, 04/11/2021, Additional history exists CKD PHOS USE SMARTSET 35801 06/12/202405/31, 06/12/2023, 05/07/2021, Additional history exists Diabetic Eye Exam 08/14/2024 08/14/2023, , 02/05/2022, Additional history exists HbA1c 09/01/2024 03/04/2024, 08/0 11/2023, 10/16/2023, Additional history exists Diabetic Foot Exam 11/28/2024 11/29/2023, 0 11/16/2022, 12/20/2021 Albumin/Creatinine Ratio 02/03/2025 08 024, 11/16/2022, 01/23/2022 Adult Wellness Visit 02/17/2025 02/18/2024, 02/12/20 23 Depression Monitoring 02/17/2025 02/18/2024 CKD HGB USE SMARTSET 83492 03/04/202503/04, 10/16/2023, 10/16/2023, Additional history exists DXA [...] Not on filedocumented as of this encounter Advance Directives Documents on File Type Date Recorded Patient Engraver Ornamental Design Expl anation Advance Directives and Living Will 07/09/2020 ADVANCE DIRECTIVE / LIVING WILL Healthcare Agents on File Name Relationship Healthcare Agent Relationshi p Communication Cassie Diaz Adult Child Health Care Repr esentative (appointed verbally by patient or by statute hierarchy) Care Teams Medical Education Coordinator Relationship Specialty Start Date End Date Daisy Mejia DO [address] [place] [address] PCP - General Internal Medicine 12/12/23 documented as of this encounter
--- OUTSIDE RECORDS SUMMARY | 2024-07-05 13:16 | External Medical Summary ---
Author Name Unknown Address Unknown Organization [id number]:[facility] [place] [address] [place] [id number] Laboratory Report Ordering Provider Test Date Status ANGELIKA BROWNING 06/16/2024 14:08:00 Final Observation Date Value Abnormality Reference (Units) Status Bacteria identified in Specimen by Culture 06/16/2024 14:08:00 No significant growth Final Test: Culture, Urine, Quanti tative
Specimen Source: Urine, Clean Catch
Specimen Type: Urine
Specimen Date: 06/16/20241407
Result Date: 06/18/2024 0822
Result Status: Final result
Resulting Lab: [facility]
[address]
[place] [id number]

CULTURE

No significant growth

null Performing Location [facility] [place] [facility] [address] [facility] [address]
--- OUTSIDE RECORDS SUMMARY | 2024-07-05 13:16 | External Medical Summary | Summary of Care ---
Author Name Unknown Organization [facility] Address [address] [place] [address] Phone [phone] Care Team Providers Care Fish Roe Technician Name Role Phone Ravin Mejia DO Primary Care Provider [phone] Reason for Visit * Reason Onset Date Comments [facility]: Screening 06/05/2024 Encounter Details Date Type Department Care Team (Late st Contact Info) Description 06/05/2024 Telephone [facility], [facility] [address] [place] [address] Yolanda Mccoy, ULTRASONIC SOLDERER [address] [facility] [place] [address] [facility]: Screening Allergies Active Allergy Reactions Criticality Noted Date Comments Lisinopril Cough 11/07/2021 Oxaprozin 11/07/2021 Other reaction(s): Other See Comments Other reaction(s): "jittery" "JITTERY" Penicillin V 11/07/2021 Other reaction(s): Rash, Hives Pollen Extract High 12/06/2021 Other reaction(s): ITCHY EYES, SNEEZING, CONGESTION documented as of this encounter (statuses as of 06/05/2024) Medications Cyanocobalamin 500 MCG Oral Tablet Disintegrating Take by mouth 2 Tablets daily . Active [place] Saline Nasal No-Drip Nasal Gel Administer into [...] every 6 hours as needed. 3 Active [place] Saline Nasal Gel Nasal Swab Use as [...] hemoglobin A1c goal of less than 8.0% ([facility]) USE FOR LANTUS INJECTION 30 Each 5 4 Active Ezetimibe 10 MG Oral Tablet (Zetia) TAKE 1 TABLET BY MOUTH ONCE DAILY 30 Tablet 5 4 Active Lactulose 10 GM/15ML Oral Solution (Constulose)Indica tions:Slow transit constipation TAKE 30ML BY MOUTH IN THE MORNING 3000 mL 3 03/10/2024 8:35 AM EDT 4 025 Active Clindamycin HCl 300 MG [...] Capsule Take 2 Capsules by mouth daily. Active ProAir RespiClick 108 (90 Base) MCG/ACT [...] by mouth in the morning. 4 Active Hospital, Clinic, or Other Facility [...] as of this encounter (statuses as of 06/05/2024) Active Problems Problem Noted Date Diagnosed Date [...] 8.0% 11/07/2021 Coronary artery disease invo lving [place] coronary artery of [place] heart without angina pectoris 11/07/2021 Gouty arthropathy 11/07/2021 HTN, goal below 150/90 11/07/2021 History of traumatic brain injury 11/07/2021 History of subarachnoid hemorrhage 11/07/2021 History of bladder cancer 11/07/2021 DM type 2 with diabetic peripheral neuropathy Severe aortic valve stenosis 11/07/2021 documented as of this encounter (statuses as of 06/05/2024) Resolved Problems Problem Noted Date Diagnosed Date [...] as of this encounter (statuses as of 06/05/2024) Immunizations Name Administration Dates Next Due COVID-19 [...] money to buy more. Never true 02/18/20 Within the past 12 months, t he [...] encounter Miscellaneous Notes * Telephone Encounter - Yolanda Mccoy LPN - 06/05/2024 12:54 PM EST Sofia Quarles was referred as a potential candidate for enrollment for [facility]. A review of this chart was completed and: Sofia meets criteria for [facility]. Jump to Initiation Referring care team was notified via : Wallop communication documented in this encounter Plan of Treatment Upcoming Encounters Date Type Department Care Team (Late st Contact Info) Description 08/27/2024 3:15 PM EST Office Visit Ophthalmology, [facility] [address] [place] [address] Ruddy Jovel DO [facility] [place] [address] 02/17/2025 2:00 PM EDT Home Visit Care at Home [address] [place] [facility] [place] [address] Disha Butts PA-C [address] [place] [address] Health Maintenance Due Date Last Done Comments COVID-19 Vaccine ( season) 2024 11/29/2023, 04/10/2022, 11/25/2021, Additional history exists Influenza Vaccine (FLU shot) (#1) 2024 03/11/2023, 04/25/2022, 04/11/2021, Additional history exists CKD PHOS USE SMARTSET 16650 06/12/202405/31, 06/12/2023, 05/07/2021, Additional history exists Diabetic Eye Exam 08/14/2024 08/14/2023, , 02/05/2022, Additional history exists HbA1c 09/01/2024 03/04/2024, 08/0 11/2023, 10/16/2023, Additional history exists Diabetic Foot Exam 11/28/2024 11/29/2023, 0 11/16/2022, 12/20/2021 Albumin/Creatinine Ratio 02/03/2025 08 024, 11/16/2022, 01/23/2022 Adult Wellness Visit 02/17/2025 02/18/2024, 02/12/20 23 Depression Monitoring 02/17/2025 02/18/2024 CKD HGB USE SMARTSET 71110 03/04/202503/04, 10/16/2023, 10/16/2023, Additional history exists DXA [...] Documents on File Type Date Recorded Patient Choker Hooker Expl anation Advance Directives and Living Will 07/09/2020 ADVANCE DIRECTIVE / LIVING WILL Healthcare Agents on File Name Relationship Healthcare Agent Relationshi p Communication Cassie Diaz Adult Child Health Care Repr esentative (appointed verbally by patient or by statute hierarchy) Care Teams Fish Roe Technician Relationship Specialty Start Date End Date Ravin Mejia DO [address] [facility] [address] PCP - General Internal Medicine 12/12/23 documented as of this encounter
--- OUTSIDE RECORDS SUMMARY | 2024-07-05 13:16 | External Medical Summary ---
Author Name Unknown Address Unknown Organization [id number]:[facility] [address] - [address] [place], [place] [address] Laboratory Report Ordering Provider Test Date Status ANGELIKA BROWNING 04/14/2024 11:30:00 Final Observation Date Value Abnormality Reference (Units ) Status Color of Urine by Auto 04/14/2024 11:30:00 Yellow Light Yellow, Yellow, Dark Yellow Final Clarity, Urine 04/14/2024 11:30:00 Clear Clear Final Glucose [Mass/volume] in Urine by Automated test strip 04/14/2024 11:30:00 Negative Negative (mg/dL) Final Bilirubin.total [Presence] in Urine by Automated test strip 04/14/2024 11:30:00 Negative Negative Final Ketones [Mass/volume] in Urine by Automated test strip 04/14/2024 11:30:00 Negative Negative (mg/dL) Final Specific gravity, Urine 04/14/2024 11:30:00 1.015 1.003-1.030 Final Hemoglobin [Presence] in Urine by Automated test strip 04/14/2024 11:30:00 Negative Negative Final pH, Urine 04/14/2024 11:30:00 6.5 5.0-7.5 (Units) Final Protein [Mass/volume] in Urine by Automated test strip 04/14/2024 11:30:00 Negative Negative (mg/dL) Final Urobilinogen [Mass/volume] in Urine by Automated test strip 04/14/2024 11:30:00 0.2 0.2, 1.0 (mg/dL) Final Nitrite [Presence] in Urine by Automated test strip 04/14/2024 11:30:00 Negative Negative Final Leukocyte esterase [Presence] in Urine by Automated test strip 04/14/2024 11:30:00 Negative Negative Final Annotation Comment 04/14/2024 11:30:00 Final Screen negative - Microscopi c not performed. Performing Location [facility] [address] [place] [address]
--- OUTSIDE RECORDS SUMMARY | 2024-07-05 13:16 | External Medical Summary ---
Author Name Unknown Address Unknown Organization [id number]:[facility] - [address] [place] [id number] Laboratory Report Ordering Provider Test Date Status ANGELIKA BROWNING 04/14/2024 11:30:00 Final Observation Date Value Abnormality Reference (Units) Status Bacteria identified in Specimen by Culture 04/14/2024 11:30:00 No significant growth Final Test: Culture, Urine, Quanti tative
Specimen Source: Urine, Clean Catch
Specimen Type: Urine
Specimen Date: 04/14/2024 1130
Result Date: 04/16/2024 1030
Result Status: Final result
Resulting Lab: [facility]
[address]
[place] [id number]

CULTURE

No significant growth

null Performing Location [facility] - [address] [facility] [address]
--- OUTSIDE RECORDS SUMMARY | 2024-07-05 13:16 | External Medical Summary | Summary of Care ---
Author Name Unknown Organization [facility] Address [address] [place] [address] Phone [phone] Care Team Providers Care Hiv Nurse Name Role Phone Ravin Mejia DO Primary Care Provider [phone] Reason for Visit * Reason Onset Date Comments Appointment 06/09/2024 Encounter Details Date Type Department Care Team (Late st Contact Info) Description 06/09/2024 Telephone [facility], [place] [address] [place] [address] Harjeet David, QUIQUE [address], [place] [id number] Appointment Allergies Active Allergy Reactions Criticality Noted Date Comments Lisinopril Cough 11/07/2021 Oxaprozin 11/07/2021 Other reaction(s): Other See Comments Other reaction(s): "jittery" "JITTERY" Penicillin V 11/07/2021 Other reaction(s): Rash, Hives Pollen Extract High 12/06/2021 Other reaction(s): ITCHY EYES, SNEEZING, CONGESTION documented as of this encounter (statuses as of 06/09/2024) Medications Cyanocobalamin 500 MCG Oral Tablet Disintegrating Take by mouth 2 Tablets daily . 2 Active [place] Saline Nasal No-Drip Nasal Gel Administer into [...] every 6 hours as needed. 3 Active [place] Saline Nasal Gel Nasal Swab Use as [...] hemoglobin A1c goal of less than 8.0% ([facility]) USE FOR LANTUS INJECTION 30 [...] as of this encounter (statuses as of 06/09/2024) Active Problems Problem Noted Date Diagnosed Date [...] 8.0% 11/07/2021 Coronary artery disease invo lving [place] coronary artery of [place] heart without angina pectoris 11/07/2021 Gouty arthropathy 11/07/2021 HTN, goal below 150/90 11/07/2021 History of traumatic brain injury 11/07/2021 History of subarachnoid hemorrhage 11/07/2021 History of bladder cancer 11/07/2021 DM type 2 with diabetic peripheral neuropathy Severe aortic valve stenosis 11/07/2021 documented as of this encounter (statuses as of 06/09/2024) Resolved Problems Problem Noted Date Diagnosed Date [...] as of this encounter (statuses as of 06/09/2024) Immunizations Name Administration Dates Next Due COVID-19 [...] encounter Miscellaneous Notes * Telephone Encounter - Harjeet David OSA - 06/09/2024 8:22 AM EST 06/09-waiting to hear back from kesha cole to schedule enrollments Looking at [facility] 06/16 documented in this encounter Plan of Treatment Upcoming Encounters Date Type Department Care Team (Late st Contact Info) Description 08/27/2024 3:15 PM EST Office Visit Ophthalmology, [facility] [address] [facility] [place] [address] Ruddy Jovel DO [address] [place] [address] 02/17/2025 2:00 PM EDT Home Visit Care at Home [address] [place] [address] Disha Butts PA-C [address] [place] [address] Health Maintenance Due Date Last Done Comments COVID-19 Vaccine ( season) 2024 11/29/2023, 04/10/2022, 11/25/2021, Additional history exists Influenza Vaccine (FLU shot) (#1) 2024 03/11/2023, 04/25/2022, 04/11/2021, Additional history exists CKD PHOS USE SMARTSET 63365 06/12/202405/31, 06/12/2023, 05/07/2021, Additional history exists Diabetic Eye Exam 08/14/2024 08/14/2023, , 02/05/2022, Additional history exists HbA1c 09/01/2024 03/04/2024, 08/0 11/2023, 10/16/2023, Additional history exists Diabetic Foot Exam 11/28/2024 11/29/2023, 0 11/16/2022, 12/20/2021 Albumin/Creatinine Ratio 02/03/2025 08 024, 11/16/2022, 01/23/2022 Adult Wellness Visit 02/17/2025 02/18/2024, 02/12/20 23 Depression Monitoring 02/17/2025 02/18/2024 CKD HGB USE SMARTSET 50758 03/04/202503/04, 10/16/2023, 10/16/2023, Additional history exists DXA [...] Documents on File Type Date Recorded Patient Qual Field Manager Expl anation Advance Directives and Living Will 07/09/2020 ADVANCE DIRECTIVE / LIVING WILL Healthcare Agents on File Name Relationship Healthcare Agent Relationshi p Communication Cassie Diaz Adult Child Health Care Repr esentative (appointed verbally by patient or by statute hierarchy) Care Teams Hiv Nurse Relationship Specialty Start Date End Date Ravin Mejia DO [address] [place] [address] PCP - General Internal Medicine 12/12/23 documented as of this encounter
--- OUTSIDE RECORDS SUMMARY | 2024-07-05 13:16 | External Medical Summary | Summary of Care ---
Author Name Unknown Organization [facility] Address [address] [place] [address] Phone [phone] Care Team Providers Care Asphalt Screed Operator Name Role Phone Ravin Mejia DO Primary Care Provider [phone] Reason for Visit * Reason Onset Date Comments Appointment 06/05/2024 Encounter Details Date Type Department Care Team (Late st Contact Info) Description 06/05/2024 Telephone [facility], [place] [facility] [address] [place] [address] Harjeet David, QUIQUE [address] [place], [place] [phone] Appointment (//) Allergies Active Allergy Reactions Criticality Noted Date [...] mouth 2 Tablets daily . 2 Active [place] Saline Nasal No-Drip Nasal Gel Administer into [...] every 6 hours as needed. 3 Active [place] Saline Nasal Gel Nasal Swab Use as [...] hemoglobin A1c goal of less than 8.0% ([facility]) USE FOR LANTUS INJECTION 30 [...] 8.0% 11/07/2021 Coronary artery disease invo lving [place] coronary artery of [place] heart without angina pectoris 11/07/2021 Gouty arthropathy [...] CG/0.3 mL, 12 YRS AND ABOVE, IM ([facility] 11/29/2023 COVID-19, mRNA, LNP-s, PF, [place], [...] Telephone Encounter - Harjeet David OSA - 06/05/2024 1:29 PM EST 06/05-[facility] Looking at [facility] 06/16 documented in this encounter Plan of Treatment Upcoming Encounters Date Type Department Care Team (Late st Contact Info) Description 08/27/2024 3:15 PM EST Office Visit Ophthalmology, [facility] [address] [place] [address] Ruddy Jovel DO [address] [place] [address] 02/17/2025 2:00 PM EDT Home Visit Care at Home [address] [place] [address] Disha Butts PA-C [address] [place] [address] Health Maintenance Due Date Last Done Comments COVID-19 Vaccine ( season) 2024 11/29/2023, 04/10/2022, 11/25/2021, Additional history exists Influenza Vaccine (FLU shot) (#1) 2024 03/11/2023, 04/25/2022, 04/11/2021, Additional history exists CKD PHOS USE SMARTSET 88443 06/12/202405/31, 06/12/2023, 05/07/2021, Additional history exists Diabetic Eye Exam 08/14/2024 08/14/2023, , 02/05/2022, Additional history exists HbA1c 09/01/2024 03/04/2024, 08/0 11/2023, 10/16/2023, Additional history exists Diabetic Foot Exam 11/28/2024 11/29/2023, 0 11/16/2022, 12/20/2021 Albumin/Creatinine Ratio 02/03/2025 082 024, 11/16/2022, 01/23/2022 Adult Wellness Visit 02/17/2025 02/18/2024, 02/12/20 23 Depression Monitoring 02/17/2025 02/18/2024 CKD HGB USE SMARTSET 30988 03/04/202503/04, 10/16/2023, 10/16/2023, Additional history exists DXA [...] Documents on File Type Date Recorded Patient Allergy And Immunology Specialist Expl anation Advance Directives and Living Will 07/09/2020 ADVANCE DIRECTIVE / LIVING WILL Healthcare Agents on File Name Relationship Healthcare Agent Relationshi p Communication Cassie Diaz Adult Child Health Care Repr esentative (appointed verbally by patient or by statute hierarchy) Care Teams Asphalt Screed Operator Relationship Specialty Start Date End Date Ravin Mejia DO [address] [facility] [place] [address] PCP - General Internal Medicine 12/12/23 documented as of this encounter
--- OUTSIDE RECORDS SUMMARY | 2024-07-05 13:16 | External Medical Summary | Summary of Care ---
Author Name Unknown Organization [facility] Address [address] [place] [address] Phone [phone] Care Team Providers Care Nut Processing Supervisor Name Role Phone Ravin Mejia DO Primary Care Provider [phone] Encounter Details Date Type Department Care Team (Late st Contact Info) Description 06/17/2024 Orders Only Lab [facility] [address] [place] [address] Vanessa Rodriguez CRNP [address] [place] [address] Urinary tract infection* Allergies Active Allergy Reactions Criticality Noted Date Comments Lisinopril Cough 11/07/2021 Oxaprozin 11/07/2021 Other reaction(s): Other See Comments Other reaction(s): "jittery" "JITTERY" Penicillin V 11/07/2021 Other reaction(s): Rash, Hives Pollen Extract High 12/06/2021 Other reaction(s): ITCHY EYES, SNEEZING, CONGESTION documented as of this encounter (statuses as of 06/17/2024) Medications Cyanocobalamin 500 MCG Oral Tablet Disintegrating Take by mouth 2 Tablets daily . 2 Active [place] Saline Nasal No-Drip Nasal Gel Administer into [...] every 6 hours as needed. 3 Active [place] Saline Nasal Gel Nasal Swab Use as [...] of less than 8.0% ([facility]) USE FOR LANTUS INJECTION 30 Each [...] as of this encounter (statuses as of 06/17/2024) Active Problems Problem Noted Date Diagnosed Date [...] 8.0% 11/07/2021 Coronary artery disease invo lving [place] coronary artery of [place] heart without angina pectoris 11/07/2021 Gouty arthropathy 11/07/2021 HTN, goal below 150/90 11/07/2021 History of traumatic brain injury 11/07/2021 History of subarachnoid hemorrhage 11/07/2021 History of bladder cancer 11/07/2021 DM type 2 with diabetic peripheral neuropathy Severe aortic valve stenosis 11/07/2021 documented as of this encounter (statuses as of 06/17/2024) Resolved Problems Problem Noted Date Diagnosed Date [...] as of this encounter (statuses as of 06/17/2024) Immunizations Name Administration Dates Next Due COVID-19 [...] Team (Late st Contact Info) Description 06/17/2024 12:00 PM EST Laboratory [facility] [address] [facility] [address] [facility] [address] [place] [address] 06/17/2024 12:30 PM EST [facility] Visit [facility], [facility] [address] [place] [address] Chuy Ribeiro, ERASMO [address] [place] [address] 07/23/2024 1:00 PM EST [facility] Visit [facility] [place], [facility] [address] [place] [address] Deshawn Painter PA-C [address] [place] [address] 08/27/2024 3:15 PM EST Office Visit Ophthalmology, [facility] [address] [place] [address] Ruddy Jovel DO [address] [place] [address] 02/17/2025 2:00 PM EDT Home Visit Care at Home [address] [facility] [place] [address] Disha Butts PA-C [address] [place] [address] Scheduled Orders Name Type Priority Associated Diagnoses Orde r Schedule URINALYSIS, REFLEX TO MICROSCOPIC Lab Routine Urinary tract infection Expected: 06/17/2024, Expires: 06/17/2025 CULTURE, URINE, QUANTITATIVE Lab Routine Urinary tract infection Expected: 06/17/2024, Expires: 06/17/2025 Health Maintenance Due Date Last Done Comments COVID-19 Vaccine ( season) 2024 11/29/2023, 04/10/2022, 11/25/2021, Additional history exists Influenza Vaccine (FLU shot) (#1) 2024 03/11/2023, 04/25/2022, 04/11/2021, Additional history exists CKD PHOS USE SMARTSET 49980 06/12/202405/31, 06/12/2023, 05/07/2021, Additional history exists Diabetic Eye Exam 08/14/2024 08/14/2023, , 02/05/2022, Additional history exists HbA1c 09/01/2024 03/04/2024, 08/0 11/2023, 10/16/2023, Additional history exists Diabetic Foot Exam 11/28/2024 11/29/2023, 0 11/16/2022, 12/20/2021 Albumin/Creatinine Ratio 02/03/2025 08/2 024, 11/16/2022, 01/23/2022 Adult Wellness Visit 02/17/2025 02/18/2024, 02/12/20 23 Depression Monitoring 02/17/2025 02/18/2024 CKD HGB USE SMARTSET 11139 03/04/202503/04, 10/16/2023, 10/16/2023, Additional history exists DXA [...] as of this encounter Visit Diagnoses Diagnosis Urinary tract infection Urinary tract infection, site not specified Urinary tract infection- Primary Urinary tract infection, site not specified documented in this encounter Advance Directives Documents on File Type Date Recorded Patient Engagement Engineer Expl anation Advance Directives and Living Will 07/09/2020 ADVANCE DIRECTIVE / LIVING WILL Healthcare Agents on File Name Relationship Healthcare Agent Relationshi p Communication [facility] Care Repr esentative (appointed verbally by patient or by statute hierarchy) Care Teams Nut Processing Supervisor Relationship Specialty Start Date End Date Ravin Mejia DO [address] [place] [address] PCP - General Internal Medicine 12/12/23 documented as of this encounter
--- OUTSIDE RECORDS SUMMARY | 2024-07-05 13:16 | External Medical Summary | Summary of Care ---
Author Name Unknown Organization [facility] Address [address] [place] [address] Phone [phone] Care Team Providers Care Asbestos Handler Name Role Phone Ravin Mejia DO Primary Care Provider [phone] Encounter Details Date Type Department Care Team (Late st Contact Info) Description 04/15/2024 Orders Only Lab Mobile Phlebotomy [facility] [address] [place] [id number] Vanessa Rodriguez CRNP [address] [place] [address] Urinary tract infection* Allergies Active Allergy Reactions Criticality Noted Date Comments Lisinopril Cough 11/07/2021 Oxaprozin 11/07/2021 Other reaction(s): Other See Comments Other reaction(s): "jittery" "JITTERY" Penicillin V 11/07/2021 Other reaction(s): Rash, Hives Pollen Extract High 12/06/2021 Other reaction(s): ITCHY EYES, SNEEZING, CONGESTION documented as of this encounter (statuses as of 04/15/2024) Medications Medication Sig Dispensed Refills Start Date End Date Status Cyanocobalamin 500 MCG Oral Tablet Disintegrating Take by mouth 2 Tablets daily . 11/07/2021 Active [place] Saline Nasal No-Drip Nasal Gel Administer into [...] every 6 hours as needed. 11/22/2022 Active [place] Saline Nasal Gel Nasal Swab Use as [...] hemoglobin A1c goal of less than 8.0% ([facility]) USE FOR LANTUS INJECTION [...] DAY 100 Tablet 3 02/24/2024 02/23/2025 Active Hospital, Clinic, or Other Facility Administered [...] as of this encounter (statuses as of 04/15/2024) Active Problems Problem Noted Date Diagnosed Date Stage 3b chronic kidney disease (CKD) 02/18/2024 Atherosclerosis of aorta 02/18/2024 Overview: Pert CT angio chest 06/26/23 Pancreatic cyst 02/18/2024 Ventral hernia without obstruction or gangrene 0 02/18/2024 Osteopenia 02/18/2024 Grade I diastolic dysfunction 02/18/2024 Cerebral atrophy 02/18/2024 Overview: Per CT head 11/20/23 Cerebral artery disease 02/18/2024 Encephalomalacia 02/18/2024 Arteriosclerotic dementia, paranoid type 08/20/2 024 Moderate Alzheimer's dementia with mood disturba [...] 8.0% 11/07/2021 Coronary artery disease invo lving [place] coronary artery of [place] heart without angina pectoris 11/07/2021 Gouty arthropathy 11/07/2021 HTN, goal below 150/90 11/07/2021 History of traumatic brain injury 11/07/2021 History of subarachnoid hemorrhage 11/07/2021 History of bladder cancer 11/07/2021 DM type 2 with diabetic peripheral neuropathy Severe aortic valve stenosis 11/07/2021 documented as of this encounter (statuses as of 04/15/2024) Resolved Problems Problem Noted Date Diagnosed Date [...] as of this encounter (statuses as of 04/15/2024) Immunizations Name Administration Dates Next Due COVID-19 mRNA, LNP-s, No Pre serve, 2-Dose Series (Moderna) 09/02/2020,08/05/2020 COVID-19 mRNA, LNP-s, No Pre serve, 2-Dose Series (Pfizer) 05/30/2021 COVID-19, MRNA-LNP, 23-24, P F, 30 MCG/0.3 mL, 12 YRS AND ABOVE, IM (PFIZER-Comirnaty) [...] 02/18/2024 Does the household have a re lar source of income? (Household - for ages [...] on file documented as of this encounter Plan of Treatment Upcoming Encounters Date Type Department Care Team (Late st Contact Info) Description 04/30/2024 3:00 PM EDT Office Visit Ophthalmology, [address] [place] [address] Ruddy Jovel, DO [address] [place] [address] 02/17/2025 2:00 PM EDT Home Visit Care at Home [address] [place] [address] Disha Butts PA-C [address] [place], [place] [phone] Pending Results Name Type Priority Associated Diagnoses Date /Time URINALYSIS, REFLEX TO MICROSCOPIC Lab Routine Urinary tract infection 04/14/2024 11:30 AM EDT CULTURE, URINE, QUANTITATIVE Lab Routine Urinary tract infection 04/14/2024 11:30 AM EDT Scheduled Orders Name Type Priority Associated Diagnoses Orde r Schedule URINALYSIS, REFLEX TO MICROSCOPIC Lab Routine Urinary tract infection Expected: 04/15/2024, Expires: 04/15/2025 CULTURE, URINE, QUANTITATIVE Lab Routine Urinary tract infection Expected: 04/15/2024, Expires: 04/15/2025 Health Maintenance Due Date Last Done Comments COVID-19 Vaccine ( season) 2024 11/29/2023, 04/10/2022, 11/25/2021, Additional history exists Influenza Vaccine (FLU shot) (#1) 2024 03/11/2023, 04/25/2022, 04/11/2021, Additional history exists CKD PHOS USE SMARTSET 38426 06/12/202405/31, 06/12/2023, 05/07/2021, Additional history exists Diabetic Eye Exam 08/14/2024 08/14/2023, , 02/05/2022, Additional history exists HbA1c 09/01/2024 03/04/2024, 08/0 11/2023, 10/16/2023, Additional history exists Diabetic Foot Exam 11/28/2024 11/29/2023, 0 11/16/2022, 12/20/2021 Albumin/Creatinine Ratio 02/03/20252 024, 11/16/2022, 01/23/2022 Adult Wellness Visit 02/17/2025 02/18/2024, 02/12/20 23 Depression Monitoring 02/17/2025 02/18/2024 CKD HGB USE SMARTSET 47689 03/04/202503/04, 10/16/2023, 10/16/2023, Additional history exists DXA [...] this encounter Visit Diagnoses Diagnosis Urinary tract infection- Primary Urinary tract infection, site not specified documented in this encounter Advance Directives Documents on File Type Date Recorded Patient Sewage Disposal Worker Expl anation Advance Directives and Living Will 07/09/2020 ADVANCE DIRECTIVE / LIVING WILL Healthcare Agents on File Name Relationship Healthcare Agent Relationshi p Communication Cassie Diaz Adult [facility] Health Care Repr esentative (appointed verbally by patient or by statute hierarchy) Care Teams Asbestos Handler Relationship Specialty Start Date End Date Ravin Mejia DO [address] [place] [facility] [place] [address] PCP - General Internal Medicine 12/12/23 documented as of this encounter
--- OUTSIDE RECORDS SUMMARY | 2024-07-05 13:16 | External Medical Summary | Summary of Care ---
Author Name Unknown Organization [facility] Address [address] [place] [address] Phone [phone] Care Team Providers Care Supervisor Mail Carriers Name Role Phone Ravin Mejia DO Primary Care Provider [phone] Encounter Details Date Type Department Care Team (Late st Contact Info) Description 06/03/2024 Population Health External Data Unspecified Department Allergies Active Allergy Reactions Criticality Noted Date Comments Lisinopril Cough 11/07/2021 Oxaprozin 11/07/2021 Other reaction(s): Other See Comments Other reaction(s): "jittery" "JITTERY" Penicillin V 11/07/2021 Other reaction(s): Rash, Hives Pollen Extract High 12/06/2021 Other reaction(s): ITCHY EYES, SNEEZING, CONGESTION documented as of this encounter (statuses as of 06/03/2024) Medications Cyanocobalamin 500 MCG Oral Tablet Disintegrating Take by mouth 2 Tablets daily . 2 Active [place] Saline Nasal No-Drip Nasal Gel Administer into [...] every 6 hours as needed. 3 Active [place] Saline Nasal Gel Nasal Swab Use as [...] goal of less than 8.0% ([facility]) USE FOR LANTUS INJECTION 30 [...] 20 mL 2 02/28/2024 11:04 AM EDT Active Vitamin D (Cholecalciferol) 25 MCG (1000 [...] as of this encounter (statuses as of 06/03/2024) Active Problems Problem Noted Date Diagnosed Date [...] 8.0% 11/07/2021 Coronary artery disease invo lving [place] coronary artery of [place] heart without angina pectoris 11/07/2021 Gouty arthropathy 11/07/2021 HTN, goal below 150/90 11/07/2021 History of traumatic brain injury 11/07/2021 History of subarachnoid hemorrhage 11/07/2021 History of bladder cancer 11/07/2021 DM type 2 with diabetic peripheral neuropathy Severe aortic valve stenosis 11/07/2021 documented as of this encounter (statuses as of 06/03/2024) Resolved Problems Problem Noted Date Diagnosed Date [...] as of this encounter (statuses as of 06/03/2024) Immunizations Name Administration Dates Next Due COVID-19 mRNA, LNP-s, No Pre serve, 2-Dose Series (Moderna) 09/02/2020,08/05/2020 COVID-19 mRNA, LNP-s, No Pre serve, 2-Dose Series (Pfizer) 05/30/2021 COVID-19, MRNA-LNP, PF, 30 M CG/0.3 mL, 12 YRS AND ABOVE, IM ([facility]) 11/29/2023 COVID-19, mRNA, LNP-s, PF, B ooster, [...] 08/27/2024 3:15 PM EST Office Visit Ophthalmology, [facility] [address] [place] [address] Ruddy Jovel DO [address] [place] [address] 02/17/2025 2:00 PM EDT Home Visit Care at Home [address], [place] [phone] Disha Butts PA-C [address] [place] [address] Health Maintenance Due Date Last Done Comments COVID-19 Vaccine ( season) 2024 11/29/2023, 04/10/2022, 11/25/2021, Additional history exists Influenza Vaccine (FLU shot) (#1) 2024 03/11/2023, 04/25/2022, 04/11/2021, Additional history exists CKD PHOS USE SMARTSET 54930 06/12/202405/31, 06/12/2023, 05/07/2021, Additional history exists Diabetic Eye Exam 08/14/2024 08/14/2023, , 02/05/2022, Additional history exists HbA1c 09/01/2024 03/04/2024, 08/0 11/2023, 10/16/2023, Additional history exists Diabetic Foot Exam 11/28/2024 11/29/2023, 0 11/16/2022, 12/20/2021 Albumin/Creatinine Ratio 02/03/2025 082 024, 11/16/2022, 01/23/2022 Adult Wellness Visit 02/17/2025 02/18/2024, 02/12/20 23 Depression Monitoring 02/17/2025 02/18/2024 CKD HGB USE SMARTSET 53722 03/04/202503/04, 10/16/2023, 10/16/2023, Additional history exists DXA [...] Documents on File Type Date Recorded Patient Java Developer Consultant Expl anation Advance Directives and Living Will 07/09/2020 ADVANCE DIRECTIVE / LIVING WILL Healthcare Agents on File Name Relationship Healthcare Agent Relationshi p Communication Cassie Diaz Adult Child Health Care Repr esentative (appointed verbally by patient or by statute hierarchy) Care Teams Supervisor Mail Carriers Relationship Specialty Start Date End Date Ravin Mejia DO [address] [place] [address] PCP - General Internal Medicine 12/12/23 documented as of this encounter
--- OUTSIDE RECORDS SUMMARY | 2024-07-05 13:16 | External Medical Summary | Summary of Care ---
Author Name Unknown Organization [facility] Address [address] [place] [address] Phone [phone] Care Team Providers Care Electrolysis Engineer Name Role Phone Ravin Mejia DO Primary Care Provider [phone] Reason for Visit * Reason Onset Date Comments Appointment 06/09/2024 Encounter Details Date Type Department Care Team (Late st Contact Info) Description 06/09/2024 Telephone [facility], [place] [address] [place] [address] Harjeet David, QUIQUE [address] [place], [place] [phone] Appointment (//) Allergies Active Allergy Reactions Criticality [...] 2 Tablets daily . 2 Active [place] Saline Nasal No-Drip Nasal Gel Administer into [...] 6 hours as needed. 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 of [place] heart without angina pectoris 11/07/2021 Gouty arthropathy [...] CG/0.3 mL, 12 YRS AND ABOVE, IM ([facility]) 11/29/2023 COVID-19, mRNA, LNP-s, PF, B ooster, [...] Encounter - Harjeet David OSA - 06/09/2024 12:54 PM EST Date Scheduled: 06/09 Time: 1254pm In Person RNCM Special Instructions: enrollment appts scheduled documented in this encounter Plan of Treatment Upcoming Encounters Date Type Department Care Team (Late st Contact Info) Description 06/17/2024 12:30 PM EST [facility] Visit [facility] [address] [place] [address] Chuy Ribeiro RN [address] [place] [phone] 07/23/2024 1:00 PM EST [facility] Visit [facility] [address] [place] [address] Deshawn Painter PA-C [address] [place] [phone] 08/27/2024 3:15 PM EST Office Visit Ophthalmology, [facility] [address] [place] [address] Ruddy Jovel DO [address] [place] [phone] 02/17/2025 2:00 PM EDT Home Visit Care at Home [address] [place] [address] Disha Butts PA-C [address] [facility] [place], [place] [phone] Health Maintenance Due Date Last Done Comments COVID-19 Vaccine ( season) 2024 11/29/2023, 04/10/2022, 11/25/2021, Additional history exists Influenza Vaccine (FLU shot) (#1) 2024 03/11/2023, 04/25/2022, 04/11/2021, Additional history exists CKD PHOS USE SMARTSET 26006 06/12/202405/31, 06/12/2023, 05/07/2021, Additional history exists Diabetic Eye Exam 08/14/2024 08/14/2023, , 02/05/2022, Additional history exists HbA1c 09/01/2024 03/04/2024, 08/0 11/2023, 10/16/2023, Additional history exists Diabetic Foot Exam 11/28/2024 11/29/2023, 0 11/16/2022, 12/20/2021 Albumin/Creatinine Ratio 02/03/2025 082 024, 11/16/2022, 01/23/2022 Adult Wellness Visit 02/17/2025 02/18/2024, 02/12/20 23 Depression Monitoring 02/17/2025 02/18/2024 CKD HGB USE SMARTSET 35042 03/04/202503/04, 10/16/2023, 10/16/2023, Additional history exists DXA [...] Documents on File Type Date Recorded Patient Systems Designer Expl anation Advance Directives and Living Will 07/09/2020 ADVANCE DIRECTIVE / LIVING WILL Healthcare Agents on File Name Relationship Healthcare Agent Relationshi p Communication Cassie [facility] Child Health Care Repr esentative (appointed verbally by patient or by statute hierarchy) Care Teams Electrolysis Engineer Relationship Specialty Start Date End Date Ravin Mejia DO [address] [place] [facility] [place] [address] PCP - General Internal Medicine 12/12/23 documented as of this encounter
--- OUTSIDE RECORDS SUMMARY | 2024-07-05 13:16 | External Medical Summary | Summary of Care ---
Author Name Unknown Organization [facility] Address [address] [place] [address] Phone [phone] Care Team Providers Care Waxer Operator Name Role Phone Ravin Mejia DO Primary Care Provider [phone] Reason for Visit * Reason Onset Date Comments Appointment 06/08/2024 Encounter Details Date Type Department Care Team (Late st Contact Info) Description 06/08/2024 Telephone [facility], [place] [address] [place] [address] Harjeet Daivd, QUIQUE [address] [place], [place] [phone] Appointment (//) Allergies Active Allergy Reactions Criticality Noted Date Comments Lisinopril Cough 11/07/2021 Oxaprozin 11/07/2021 Other reaction(s): Other See Comments Other reaction(s): "jittery" "JITTERY" Penicillin V 11/07/2021 Other reaction(s): Rash, Hives Pollen Extract High 12/06/2021 Other reaction(s): ITCHY EYES, SNEEZING, CONGESTION documented as of this encounter (statuses as of 06/08/2024) Medications Cyanocobalamin 500 MCG Oral Tablet Disintegrating Take by mouth 2 Tablets daily . 2 Active [place] Saline Nasal No-Drip Nasal Gel Administer into [...] every 6 hours as needed. 3 Active [place] Saline Nasal Gel Nasal Swab Use as [...] hemoglobin A1c goal of less than 8.0% ([facility]) USE FOR LANTUS INJECTION 30 Each 5 [...] as of this encounter (statuses as of 06/08/2024) Active Problems Problem Noted Date Diagnosed Date [...] 11/07/2021 Coronary artery disease invo lving [place] coronary artery of [place] heart without angina pectoris 11/07/2021 Gouty arthropathy 11/07/2021 HTN, goal below 150/90 11/07/2021 History of traumatic brain injury 11/07/2021 History of subarachnoid hemorrhage 11/07/2021 History of bladder cancer 11/07/2021 DM type 2 with diabetic peripheral neuropathy Severe aortic valve stenosis 11/07/2021 documented as of this encounter (statuses as of 06/08/2024) Resolved Problems Problem Noted Date Diagnosed Date [...] as of this encounter (statuses as of 06/08/2024) Immunizations Name Administration Dates Next Due COVID-19 mRNA, LNP-s, No Pre serve, 2-Dose Series (Moderna) 09/02/2020,08/05/2020 COVID-19 mRNA, LNP-s, No Pre serve, 2-Dose Series (Pfizer) 05/30/2021 COVID-19, MRNA-LNP, PF, 30 M CG/0.3 mL, 12 YRS AND ABOVE, IM [facility]) 11/29/2023 COVID-19, mRNA, LNP-s, PF, B ooster, [...] Telephone Encounter - Harjeet David OSA - 06/08/2024 8:30 AM EST 06/08-[facility] Looking at [facility] 06/16 documented in this encounter Plan of Treatment Upcoming Encounters Date Type Department Care Team (Late st Contact Info) Description 08/27/2024 3:15 PM EST Office Visit Ophthalmology, [facility] [address] [place] [address] Ruddy Jovel DO [address] [place] [address] 02/17/2025 2:00 PM EDT Home Visit Care at Home [address] [place] [address] Disha Butts PA-C [address] [place] [address] Health Maintenance Due Date Last Done Comments COVID-19 Vaccine ( season) 2024 11/29/2023, 04/10/2022, 11/25/2021, Additional history exists Influenza Vaccine (FLU shot) (#1) 2024 03/11/2023, 04/25/2022, 04/11/2021, Additional history exists CKD PHOS USE SMARTSET 04958 06/12/202405/31, 06/12/2023, 05/07/2021, Additional history exists Diabetic Eye Exam 08/14/2024 08/14/2023, , 02/05/2022, Additional history exists HbA1c 09/01/2024 03/04/2024, 08/0 11/2023, 10/16/2023, Additional history exists Diabetic Foot Exam 11/28/2024 11/29/2023, 0 11/16/2022, 12/20/2021 Albumin/Creatinine Ratio 02/03/2025 082 024, 11/16/2022, 01/23/2022 Adult Wellness Visit 02/17/2025 02/18/2024, 02/12/20 23 Depression Monitoring 02/17/2025 02/18/2024 CKD HGB USE SMARTSET 19016 03/04/202503/04, 10/16/2023, 10/16/2023, Additional history exists DXA [...] Documents on File Type Date Recorded Patient Hospital Monitor Expl anation Advance Directives and Living Will 07/09/2020 ADVANCE DIRECTIVE / LIVING WILL Healthcare Agents on File Name Relationship Healthcare Agent Relationshi p Communication Cassie Diaz Adult Child Health Care Repr esentative (appointed verbally by patient or by statute hierarchy) Care Teams Waxer Operator Relationship Specialty Start Date End Date Ravin Mejia DO [address] [facility] [place] [address] PCP - General Internal Medicine 12/12/23 documented as of this encounter
--- OUTSIDE RECORDS SUMMARY | 2024-07-05 13:16 | External Medical Summary ---
Author Name Unknown Address Unknown Organization [facility] [address] [facility] [address] Laboratory Report Ordering Provider Test Date Status ANGELIKA BROWNING 06/16/2024 14:08:00 Final Observation Date Value Abnormality Reference (Units ) Status Color of Urine by Auto 06/16/2024 14:08:00 Yellow Light Yellow, Yellow, Dark Yellow Final Clarity, Urine 06/16/2024 14:08:00 Clear Clear Final Glucose [Mass/volume] in Urine by Automated test strip 06/16/2024 14:08:00 Negative Negative (mg/dL) Final Bilirubin.total [Presence] in Urine by Automated test strip 06/16/2024 14:08:00 Negative Negative Final Ketones [Mass/volume] in Urine by Automated test strip 06/16/2024 14:08:00 Negative Negative (mg/dL) Final Specific gravity, Urine 06/16/2024 14:08:00 1.020 1.003-1.030 Final Hemoglobin [Presence] in Urine by Automated test strip 06/16/2024 14:08:00 Negative Negative Final pH, Urine 06/16/2024 14:08:00 5.5 5.0-7.5 (Units) Final Protein [Mass/volume] in Urine by Automated test strip 06/16/2024 14:08:00 Negative Negative (mg/dL) Final Urobilinogen [Mass/volume] in Urine by Automated test strip 06/16/2024 14:08:00 0.2 0.2, 1.0 (mg/dL) Final Nitrite [Presence] in Urine by Automated test strip 06/16/2024 14:08:00 Negative Negative Final Leukocyte esterase [Presence] in Urine by Automated test strip 06/16/2024 14:08:00 Negative Negative Final Annotation Comment 06/16/2024 14:08:00 Final Screen negative - Microscopi c not performed. Performing Location [facility] [address] [place] [address]
--- NOTE | 2024-07-05 13:40 | Emergency Department Note ---
Impression & Plan RAMANA (acute kidney injury), AMS (altered mental status), Hypercalcemia, Constipation, Liver mass ED Provider Note NAME: CAYLA BARTLETT AGE: 89 SEX: F : 1935 ARRIVES VIA: Ambulance INFORMANT: Patient ED PROVIDER(S): Ming Dougherty DO CHIEF COMPLAINT: Altered mental status HPI: Patient is an 89-year-old female who presents to the ER from the dementia unit at [facility] for increased confusion for the past 2 weeks. Patient is not taking any of her meds currently. Patient is unable to give any history. Patient does have a history of hyperlipidemia, aortic stenosis and A-fib with RVR. ADDITIONAL HISTORY OBTAINED: Per HPI Chronic Medical/Social Conditions Affecting Care: Per HPI PAST MEDICAL HISTORY:See Below PAST SURGICAL HISTORY:See Below FAMILY HISTORY:See Below SOCIAL HISTORY:See Below HOME MEDICATIONS:See Below ALLERGIES:See Below VITALS:See Below PHYSICAL EXAMINATION: GENERAL: Sitting up in bed, alert, well appearing, well nourished, no distress, non-toxic EYE EXAM: normal conjunctiva. PERRL and EOM's grossly intact. OROPHARYNX: no exudate, no erythema, lips, buccal mucosa, and tongue normal and mucous membranes are moist NECK: supple, no nuchal rigidity, no adenopathy, non-tender LUNGS: Clear to auscultation. Normal chest wall mechanics HEART: no murmurs, S1 normal and S2 normal ABDOMEN: abdomen soft, non-tender, normo-active bowel sounds, no masses, no rebound or guarding. BACK: Back is symmetrical on inspection and there is no deformity, no midline tenderness, no CVA tenderness. UPPER EXTREMITIES: upper extremities are grossly normal. LOWER EXTREMITIES: No pitting edema. NEURO EXAM: Awake moving all extremities not answering questions MEDICAL DECISION MAKING: Patient is an 89-year-old female who presents to the ER does not provide any additional history. IV was established and blood work was obtained. Labs showed no significant leukocytosis and a mild anemia at 11.8. BMP with a creatinine of 2.1 up from baseline of 0.8. Calcium was elevated at 12.1. LFTs and bilirubin were unremarkable. Viral panel was negative. Chest x-ray and CT head were nondiagnostic. CT abdomen abdomen shows constipation and the liver mass. Patient was given an enema. She was given IV fluids x 2 L. Discussed case with the hospitalist for further evaluation management treatment. Consults/Care Managements Discussions: Per MDM Triage Nursing notes reviewed. Limited review of prior medical records performed Vital Signs: reviewed and remarkable for no significant abnormalities Differential diagnosis: Differential diagnoses includes but is not limited to toxic, metabolic, infectious, traumatic, cardiac, neurologic, hematologic, psychiatric and inflammatory etiologies. ER treatment provided: See below Diagnostics interpreted by me include EKG and cardiac monitoring as listed below: -Cardiac Monitoring: An order was placed for continuous cardiac monitoring. The monitor shows a rate of 80 with A-fib rhythm. -ECG: A-fib rate of 97 Normal axis No PVCs QTc 485 -Laboratory studies:Interpreted by me as stated above in MDM and shown below. Imaging studies: Xrays: As interpreted by me: Portable AP upright 1 view of the chest shows no focal infiltrate CTs show: CT of the head and abdomen pelvis as described above in MDM Procedures: None Critical Care: None Past Med/Surg History Problem List (Updated 07/05/24 @ 17:44 by Ming Dougherty DO) Liver mass (Acute) Constipation (Acute) Hypercalcemia (Acute) AMS (altered mental status) (Acute) RAMANA (acute kidney injury) (Acute) Failure to thrive in adult Severe Alzheimer dementia with agitation Dehydration Constipation Stercoral colitis Moderate mitral stenosis Severe aortic stenosis Atrial fibrillation with RVR (Acute) History of coronary artery stent placement Moderate to severe aortic stenosis History of bladder cancer Memory loss History of subarachnoid hemorrhage History of traumatic brain injury Gouty arthropathy Coronary artery disease Type 2 diabetes mellitus Medical History Elevated troponin Syncope Painful orthopaedic hardware No significant family history Diabetic peripheral neuropathy Intracranial bleed Hyperlipidemia Gout Osteoarthritis of knees, bilateral Seizure-like activity Surgical History No significant past surgical history Social History Smoking Status: Never smoker Second Hand Exposure: No; Hx Alcohol Use: No Hx Substance Use: No Preferred Language: British Communication Ability: Effective Bartender Manager Required: No Beliefs That Will Affect Care: None marital status: / Current Living Situation: Spouse Current Living Situation Comment: lives at [facility] current occupational status: retired Feels Safe at Home: Yes Assistive Devices: Walker Allergies Allergies Allergy/AdvReac Type Severity Reaction Status Date / Time pollen extracts Allergy Intermediate ITCHY Verified 06/19/23 15:19 EYES, SNEEZING, CONGESTION lisinopril Allergy Unknown CAN'T Verified 06/19/23 15:19 REMEMBER oxaprozin [From Daypro] Allergy Unknown CAN'T Verified 06/19/23 15:19 REMEMBER Penicillins Allergy Unknown CAN'T Verified 06/19/23 15:19 REMEMBER Home Meds Home Medications Medication Instructions Recorded Confirmed Saccharomyces boulardii 250 mg 250 mg PO QAM 12/06/21 07/05/24 capsule acetaminophen 325 mg tablet 650 mg PO UD PRN PAIN/FEVER 12/06/21 07/05/24 (Tylenol) allopurinol 100 mg tablet 100 mg PO UD 12/06/21 07/05/24 aspirin 81 mg chewable tablet 81 mg PO UD 12/06/21 07/05/24 atorvastatin 10 mg tablet 10 mg PO UD 12/06/21 07/05/24 cholecalciferol (vitamin D3) 25 25 mcg PO UD 12/06/21 07/05/24 mcg (1,000 unit) capsule (Vitamin D3) cyanocobalamin (vitamin B-12) 500 1,000 mcg PO UD 12/06/21 07/05/24 mcg tablet (Vitamin B-12) insulin glargine 100 unit/mL (3 10 unit subcut HS 12/06/21 07/05/24 mL) subcutaneous pen (Lantus Solostar U-100 Insulin) lactulose 10 gram/15 mL oral 30 g PO QAM 12/06/21 07/05/24 solution geldlizs-[id number]-[id number] 5 mg-zeaxanth 1 cap PO QID 12/06/21 07/05/24 1 mg-bilberry 7.5 mg-herbal capsule (Macular Health Formula) sodium chloride-aloe vera nasal 1 ea intranasal UD 12/06/21 07/05/24 swab coQ10 (ubiquinol) 200 mg capsule 200 mg PO UD 11/16/22 07/05/24 donepezil 10 mg tablet 10 mg PO UD 11/16/22 07/05/24 escitalopram oxalate 10 mg tablet 10 mg PO UD 11/16/22 07/05/24 (Lexapro) ezetimibe 10 mg tablet (Zetia) 10 mg PO UD 11/16/22 07/05/24 losartan 25 mg tablet 12.5 mg PO UD 11/16/22 07/05/24 metformin 500 mg tablet,extended 500 mg PO UD 11/16/22 07/05/24 release 24 hr Milk of Magnesia 30 ml PO DAILY PRN Constipation 07/05/24 07/05/24 amiodarone 200 mg tablet mg 07/05/24 artifi.tears(hypromellose)(PF) 0.3 1 drp ophthalmic (eye) Q6H PRN Dry 07/05/24 07/05/24 % eye drops Eye(S) clopidogrel 75 mg tablet mg 07/05/24 duloxetine 30 mg capsule,delayed mg PO 07/05/24 release potassium chloride 20 mEq oral 20 meq PO DAILY 07/05/24 07/05/24 packet Previous Rx's Medication Instructions Recorded albuterol sulfate 90 mcg/actuation 2 inh inhalation Q6HWA PRN 11/22/22 breath activated powder inhaler shortness of breath or wheezing #1 ea furosemide 20 mg tablet (Lasix) 20 mg PO Q OTHER DAY #30 tabs 11/22/22 Results & Data (ED) Vital Signs Vital Signs - 24 hr 07/05/24 13:10 07/05/24 13:12 07/05/24 13:13 Temperature 36.9 C Temperature Source Oral Pulse Rate 104 H 98 H Pulse Rate [Apical] Respiratory Rate 22 Blood Pressure 128/95 128/95 Blood Pressure [Right Arm] Blood Pressure Mean 106 104 Blood Pressure Mean [Right Arm] Pulse Oximetry 96 Oxygen Delivery Method Room Air Sepsis Recent Fever Within 48 Hours No Sepsis New/Unexplained Change in Mental Status N/A Sepsis Action Taken by Nursing No Action Required 07/05/24 13:18 07/05/24 13:30 07/05/24 13:38 Temperature Temperature Source Pulse Rate 101 H Pulse Rate [Apical] Respiratory Rate 18 Blood Pressure Blood Pressure [Right Arm] Blood Pressure Mean Blood Pressure Mean [Right Arm] Pulse Oximetry 100 92 94 Oxygen Delivery Method Room Air Room Air Sepsis Recent Fever Within 48 Hours Sepsis New/Unexplained Change in Mental Status Sepsis Action Taken by Nursing 07/05/24 14:15 07/05/24 14:27 07/05/24 17:17 Temperature Temperature Source Pulse Rate 90 109 H Pulse Rate [Apical] Respiratory Rate 20 Blood Pressure 144/91 H Blood Pressure [Right Arm] Blood Pressure Mean 108 Blood Pressure Mean [Right Arm] Pulse Oximetry 93 Oxygen Delivery Method Sepsis Recent Fever Within 48 Hours Sepsis New/Unexplained Change in Mental Status Sepsis Action Taken by Nursing 07/05/24 17:37 Temperature Temperature Source Pulse Rate Pulse Rate [Apical] 89 Respiratory Rate 16 Blood Pressure Blood Pressure [Right Arm] 142/88 H Blood Pressure Mean Blood Pressure Mean [Right Arm] 106 Pulse Oximetry 92 Oxygen Delivery Method Room Air Sepsis Recent Fever Within 48 Hours Sepsis New/Unexplained Change in Mental Status Sepsis Action Taken by Nursing Laboratory Data 07/05/24 13:33 07/05/24 13:33 Lab Results 07/05/24 Range/Units 13:33 WBC 6.40 (4.8-10.8) K/ul RBC 4.22 (4.20-5.40) M/uL Hgb 11.8 L (12.0-16.0) g/dl Hct 36.4 L (37.0-47.0) % MCV 86.3 (80.0-100.0) fL MCH 28.0 (25.0-34.0) pg MCHC 32.4 (32.0-36.0) g/dL RDW Std Deviation 50.4 H (36.4-46.3) fL RDW Coeff of Alejandra 16.2 H (11.5-14.5) % Plt Count 221 (130-400) K/uL MPV 11.1 (9.4-12.4) fL Immature Gran % (Auto) 0.3 % Neut % (Auto) 88.2 % Lymph % (Auto) 5.5 % [place] % (Auto) 5.8 % Eos % (Auto) 0.0 % Baso % (Auto) 0.2 % Neut # (Auto) 5.65 (1.40-6.50) K/uL Lymph # (Auto) 0.35 L (1.20-3.40) K/uL [place] # (Auto) 0.37 (0.11-0.59) K/uL Eos # (Auto) 0.00 (0.00-0.50) K/uL Baso # (Auto) 0.01 (0.00-0.20) K/uL Immature Gran # (Auto) 0.02 (0.01-0.20) K/uL Sodium 139 (136-145) mmol/L Potassium 3.6 (3.5-5.1) mmol/L Chloride 99 (98-107) mmol/L Carbon Dioxide 31 (21-32) mmol/L Anion Gap 9 (3-11) BUN 58 H (6-23) mg/dl Creatinine 2.11 H (0.6-1.2) mg/dl Est Cr Clr Drug Dosing Not Reportable eGFR 22.26 BUN/Creatinine Ratio 27.5 H (10-20) Glucose 141 H (70-99(Fasting)) mg/dl Calcium 12.1 H* (8.6-10.3) mg/dl Total Bilirubin 1.0 (0.2-1.0) mg/dl AST 23 (13-39) U/L ALT 18 (7-52) U/L Alkaline Phosphatase 100 (34-104) U/L Total Protein 6.4 (6.0-8.3) gm/dl Albumin 3.9 (3.4-5.0) gm/dl Globulin 2.5 (2.5-4.0) gm/dl Albumin/Globulin Ratio 1.6 (0.9-2) Lipase 40 (11-82) U/L Adenovirus (PCR) Not Detected (NotDetected) B. pertussis DNA (PCR) Not Detected (NotDetected) B.parapertussis DNA PCR Not Detected (NotDetected) C. pneumoniae DNA (PCR) Not Detected (NotDetected) Coronavirus OC43 (PCR) Not Detected (NotDetected) Coronavirus HKU1 (PCR) Not Detected (NotDetected) Coronavirus 229E (PCR) Not Detected (NotDetected) SARS-CoV-2 (PCR) Not Detected (NotDetected) Coronavirus NL63 (PCR) Not Detected (NotDetected) Human Metapneumovir PCR Not Detected (NotDetected) Influenza Type A (PCR) Not Detected (NotDetected) Influenza Type B (PCR) Not Detected (NotDetected) M. pneumoniae (PCR) Not Detected (NotDetected) Parainfluenza 1 (PCR) Not Detected (NotDetected) Parainfluenza 2 (PCR) Not Detected (NotDetected) Parainfluenza 3 (PCR) Not Detected (NotDetected) Parainfluenza 4 (PCR) Not Detected (NotDetected) RSV (PCR) Not Detected (NotDetected) Entero/Rhino (PCR) Not Detected (NotDetected) Administered Medications Discontinued Medications Bisacodyl (Bisacodyl 10 Mg Supp) 10 mg WV NOW STA Stop: 07/05/24 16:21 Last Admin: 07/05/24 16:49 Dose: 10 mg Documented By: LKD Sodium Chloride (Nss) 1,000 mls @ 999 mls/hr IV .Q1H1M ONE Stop: 07/05/24 14:37 Last Admin: 07/05/24 14:12 Dose: 999 mls/hr Documented By: CC Sodium Chloride (Nss) 1,000 mls @ 999 mls/hr IV .Q1H1M ONE Stop: 07/05/24 15:13 Last Admin: 07/05/24 14:26 Dose: 999 mls/hr Documented By: ML Imaging Data Radiologist's Impression: Head CT 07/05/24 13:35 CT head without contrast History: Altered mental status Comparison: 10/16/2023 Technique: Using multidetector thin collimation helical acquisition technique, axial, coronal and sagittal CT images from the skull base to the vertex were obtained without intravenous contrast. Dose reduction techniques were achieved by using automatic exposure control and/or adjustment of mA and/or kV according to patient size and/or use of iterative reconstruction technique. Findings: No intracranial hemorrhage, mass-effect, or midline shift. The ventricles are proportionate to the cerebral sulci. Chronic right occipital lobe infarct otherwise the gleason to white matter differentiation of the cerebral hemispheres is preserved. The basal cisterns are patent. There is marked cerebral atrophy. Moderate, patchy low-attenuation changes in the white matter, most suggestive of sequelae of chronic small vessel ischemic disease. The visualized paranasal sinuses are clear. Mastoid air cells are clear. Impression: No acute intracranial pathology. Electronically signed by Ruddy Clayton 07-05-2024 3:06 PM Abdomen/Pelvis CT 07/05/24 14:13 EXAMINATION: CT of the abdomen and pelvis performed without contrast TECHNIQUE: Helical CT images from the lung bases through the symphysis pubis were obtained without contrast. Coronal and sagittal reformatted images were generated at a workstation for further assessment. Dose reduction techniques were achieved by using automatic exposure control and/or adjustment of mA and/or kV according to patient size and/or use of iterative reconstruction technique. COMPARISON: None HISTORY: Abdominal pain FINDINGS: Lower chest: No consolidation. No pleural effusion or pneumothorax. Mild scattered atelectasis and scarring throughout the periphery of the lung bases. Liver: There is an ill-defined low-density lesion in the liver near the fissure for the ligamentum teres that measures approximately 3.5 cm. Enlargement of the intrahepatic portal veins, and there is borderline enlargement of the extrahepatic main portal vein measuring up to 15 mm. The liver is also increased in density which may be due to iron deposition or possibly amiodarone use, in this patient with significant cardiomegaly and coronary stenting. Gallbladder: No gallstones. No evidence of acute cholecystitis. High density material in the gallbladder, may represent vicarious excretion of contrast or milk of calcium. Spleen: Normal size. Pancreas: No suspicious pancreatic lesions. The pancreatic duct is not dilated. Adrenal glands: No adrenal nodules. Kidneys: No hydronephrosis or obstructing renal stones. Polycystic kidney disease, with numerous, prominent bilateral renal cysts noted. Bladder / Pelvic organs: Unremarkable. Bowel: No bowel obstruction. No abnormal bowel wall thickening. The appendix is not definitely seen. There is a large colonic stool burden, much of which appears desiccated. A significant large volume of stool is seen in the rectum, and there is mild rectal wall thickening and mild inflammatory fat stranding seen especially in the posterior perirectal space. A small right paramedian incisional related abdominal wall hernia contains a few loops of small bowel without evidence for obstruction.. Lymph nodes: No retroperitoneal, mesenteric, or pelvic lymphadenopathy. Peritoneum / Retroperitoneum: No free fluid or air within the abdomen. Vessels: No infrarenal aortic aneurysm. Bones and soft tissues: No suspicious lesion in the bones. Degenerative changes of the thoracolumbar spine. Dextroscoliotic curvature of the lumbar spine. IMPRESSION: 1. There is a large colonic stool burden, much of which is desiccated, especially in the rectum, much of which is desiccated, especially in the rectum, and there is mild rectal wall thickening and perirectal inflammatory fat stranding, which may be seen with stercoral colitis. 2. There is an ill-defined 3.5 cm lesion in the liver. Recommend follow-up abdominal MRI. 3. Polycystic kidneys. Electronically signed by Ruddy Clayton 07-05-2024 3:06 PM Chest X-Ray 07/05/24 15:12 Chest radiograph, one view History: Weakness Comparison: 11/21/2022 Findings: Single AP view of the chest performed. No focal consolidation or pleural effusion. Mild streaky atelectasis or scar at the lower lung on the left again seen. No pneumothorax. Enlargement of the cardiac silhouette. There is significant enlargement of the pulmonary arterial silhouette suggesting pulmonary pretension. An aortic root stent is seen. No evidence for lymphadenopathy. No visualized bony or soft tissue abnormality. Bilateral shoulder arthroplasty. Impression: No acute process. Mild scarring and/or atelectasis at the left lower lung again seen. Note there is significant enlargement of the pulmonary arterial structures suggesting pulmonary hypertension. Electronically signed by Ruddy Clayton 07-05-2024 3:56 PM Discharge Plan Visit Data Chief Complaint: Altered Mental Status Stated Complaint: MENTAL STATUS CHANGE, LETHARGIC ED Provider: Ming Dougherty Discharge Problem: RAMANA (acute kidney injury), AMS (altered mental status), Hypercalcemia, Constipation, Liver mass Forms [facility]one [facility]: [facility] Prescriptions: No Action acetaminophen [Tylenol] 325 mg Tablet 650 mg PO UD MDD 3 GRAMS/24 HOURS PRN (Reason: PAIN/FEVER) Rx Instructions: 650 mg po q6h prn. 07/05/23: not on list from facility. unable to verify atorvastatin 10 mg Tablet 10 mg PO UD Rx Instructions: 10 mg po hs. 07/05/23: not on list from facility. unable to verify allopurinol 100 mg Tablet 100 mg PO UD Rx Instructions: 100 mg po qam. 07/05/23: not on list from facility. unable to verify cyanocobalamin (vitamin B-12) [Vitamin B-12] 500 mcg Tablet 1,000 mcg PO UD Rx Instructions: 1000 mcg p qam. 07/05/23: not on list from facility. unable to verify aspirin 81 mg Tablet,Chewable 81 mg PO UD Rx Instructions: 81 mg po daily. 07/05/23: not on list from facility. unable to verify cholecalciferol (vitamin D3) [Vitamin D3] 25 mcg (1,000 unit) Capsule 25 mcg PO UD Rx Instructions: 25 mcg q other day. 07/05/23: not on list from facility. unable to verify Saccharomyces boulardii 250 mg Capsule 250 mg PO QAM lactulose 10 gram/15 mL Solution 30 g PO QAM sodium chloride-aloe vera Swab 1 ea INTRANASAL UD Rx Instructions: 1 ea intranasal bid. NASAL DRYNESS. 07/05/23: not on list from facility. unable to verify insulin glargine [Lantus Solostar U-100 Insulin] 100 unit/mL (3 mL) Insulin Pen 10 unit SUBCUT HS [facility] Formula 5-1-7.5 mg Capsule 1 cap PO QID donepezil 10 mg Tablet 10 mg PO UD Rx Instructions: 10 mg po daily. 07/05/23: not on list from facility. unable to verify losartan 25 mg Tablet 12.5 mg PO UD Rx Instructions: 12.5 mg po daily. 07/05/23: not on list from facility. unable to verify metformin 500 mg Tablet Extended Release 24 Hr 500 mg PO UD Rx Instructions: 500 mg po qdd. 07/05/23: not on list from facility. unable to verify escitalopram oxalate [Lexapro] 10 mg Tablet 10 mg PO UD Rx Instructions: 10 mg po daily. 07/05/23: not on list from facility. unable to verify ezetimibe [Zetia] 10 mg Tablet 10 mg PO UD Rx Instructions: 10 mg po daily 07/05/23: not on list from facility. unable to verify coQ10 (ubiquinol) 200 mg Capsule 200 mg PO UD Rx Instructions: 200 mg po daily. 07/05/23: not on list from facility. unable to verify albuterol sulfate 90 mcg/actuation aerosol powdr breath activated 2 inh inhalation Q6HWA PRN (Reason: shortness of breath or wheezing) Qty: 1 0RF furosemide [Lasix] 20 mg tablet 20 mg PO Q OTHER DAY Qty: 30 0RF amiodarone 200 mg tablet clopidogrel 75 mg tablet duloxetine 30 mg capsule,delayed release(DR/EC) PO potassium chloride 20 mEq Packet 20 meq PO DAILY GenTeal (PF) 0.3 % Drops 1 drp OPHTHALMIC (EYE) Q6H PRN (Reason: Dry Eye(S)) Milk of Magnesia 30 ml PO DAILY PRN (Reason: Constipation) Referrals Referrals: Lisa Dasilva at [place] [Primary Care Provider] - Discharge Problem: AMS (altered mental status) Qualifiers: Altered mental status type: unspecified Qualified Code(s): R41.82 - Altered mental status, unspecified Constipation Qualifiers: Constipation type: unspecified constipation type Qualified Code(s): K59.00 - Constipation, unspecified
[2024-07-05 13:50] LABS: Basophils # (auto) 0.01 K/uL (0.00-0.20); Basophils % (auto) 0.2 %; Hematocrit (blood only) 36.4 % (37.0-47.0); Hemoglobin 11.8 g/dl (12.0-16.0); Immature Granulocytes # (auto) 0.02 K/uL (0.01-0.20); Immature Granulocytes % (auto) 0.3 %; Lymphocytes # (auto) 0.35 K/uL (1.20-3.40); Lymphocytes % (auto) 5.5 %; Mean Corpuscular Hgb Conc 32.4 g/dL (32.0-36.0); Mean Corpuscular Volume 86.3 fL (80.0-100.0); Mean Platelet Volume 11.1 fL (9.4-12.4); Monocytes # (auto) 0.37 K/uL (0.11-0.59); Monocytes % (auto) 5.8 %; Neutrophils # (auto) 5.65 K/uL (1.40-6.50); Neutrophils % (auto) 88.2 %; Platelet Count 221 K/uL (130-400); RDW Coefficient of Variation 16.2 % (11.5-14.5); RDW Standard Deviation 50.4 fL (36.4-46.3); Red Blood Count 4.22 M/uL (4.20-5.40)
[2024-07-05 14:04] LABS: Alanine Aminotransferase 18 U/L (7-52); Albumin Globulin Ratio 1.6 (0.9-2); Albumin Level 3.9 gm/dl (3.4-5.0); Alkaline Phosphatase 100 U/L (34-104); Anion Gap 9 (3-11); Aspartate Aminotransferase 23 U/L (13-39); BUN Creatinine Ratio 27.5 (10-20); Blood Urea Nitrogen 58 mg/dl (6-23); Calcium 12.1 mg/dl (8.6-10.3); Carbon Dioxide 31 mmol/L (21-32); Chloride 99 mmol/L (98-107); Globulin 2.5 gm/dl (2.5-4.0); Glucose 141 mg/dl (70-99(Fasting)); Lipase 40 U/L (11-82); Potassium 3.6 mmol/L (3.5-5.1); Sodium 139 mmol/L (136-145); Total Protein 6.4 gm/dl (6.0-8.3)
[2024-07-05] MEDS: SODIUM CHLORIDE 0.9% 1,000 ML IV ONE ×2 (14:12→14:26)
[2024-07-05 14:33] LABS: Adenovirus PCR Not Detected (NotDetected); Bordetella parapertussis PCR Not Detected (NotDetected); Bordetella pertussis PCR Not Detected (NotDetected); Chlamydia pneumoniae PCR Not Detected (NotDetected); Coronavirus 229E PCR Not Detected (NotDetected); Coronavirus CoV-2 (COVID19)PCR Not Detected (NotDetected); Coronavirus HKU1 PCR Not Detected (NotDetected); Coronavirus NL63 PCR Not Detected (NotDetected); Coronavirus OC43PCR Not Detected (NotDetected); Human Metapneumovirus PCR Not Detected (NotDetected); Influenza A PCR Not Detected (NotDetected); Influenza B PCR Not Detected (NotDetected); Mycoplasma pneumoniae PCR Not Detected (NotDetected); Parainfluenza Virus 1 PCR Not Detected (NotDetected); Parainfluenza Virus 2 PCR Not Detected (NotDetected); Parainfluenza Virus 3 PCR Not Detected (NotDetected); Parainfluenza Virus 4 PCR Not Detected (NotDetected); Respiratory Syncytial VirusPCR Not Detected (NotDetected); Rhinovirus/Enterovirus PCR Not Detected (NotDetected)
--- NOTE | 2024-07-05 15:06 | CT Scan Report ---
CT head without contrast History: Altered mental status Comparison: 10/16/2023 Technique: Using multidetector thin collimation helical acquisition technique, axial, coronal and sagittal CT images from the skull base to the vertex were obtained without intravenous contrast. Dose reduction techniques were achieved by using automatic exposure control and/or adjustment of mA and/or kV according to patient size and/or use of iterative reconstruction technique. Findings: No intracranial hemorrhage, mass-effect, or midline shift. The ventricles are proportionate to the cerebral sulci. Chronic right occipital lobe infarct otherwise the gleason to white matter differentiation of the cerebral hemispheres is preserved. The basal cisterns are patent. There is marked cerebral atrophy. Moderate, patchy low-attenuation changes in the white matter, most suggestive of sequelae of chronic small vessel ischemic disease. The visualized paranasal sinuses are clear. Mastoid air cells are clear. Impression: No acute intracranial pathology. Electronically signed by Ruddy Clayton 07-05-2024 3:06 PM
--- NOTE | 2024-07-05 15:06 | CT Scan Report ---
EXAMINATION: CT of the abdomen and pelvis performed without contrast TECHNIQUE: Helical CT images from the lung bases through the symphysis pubis were obtained without contrast. Coronal and sagittal reformatted images were generated at a workstation for further assessment. Dose reduction techniques were achieved by using automatic exposure control and/or adjustment of mA and/or kV according to patient size and/or use of iterative reconstruction technique. COMPARISON: None HISTORY: Abdominal pain FINDINGS: Lower chest: No consolidation. No pleural effusion or pneumothorax. Mild scattered atelectasis and scarring throughout the periphery of the lung bases. Liver: There is an ill-defined low-density lesion in the liver near the fissure for the ligamentum teres that measures approximately 3.5 cm. Enlargement of the intrahepatic portal veins, and there is borderline enlargement of the extrahepatic main portal vein measuring up to 15 mm. The liver is also increased in density which may be due to iron deposition or possibly amiodarone use, in this patient with significant cardiomegaly and coronary stenting. Gallbladder: No gallstones. No evidence of acute cholecystitis. High density material in the gallbladder, may represent vicarious excretion of contrast or milk of calcium. Spleen: Normal size. Pancreas: No suspicious pancreatic lesions. The pancreatic duct is not dilated. Adrenal glands: No adrenal nodules. Kidneys: No hydronephrosis or obstructing renal stones. Polycystic kidney disease, with numerous, prominent bilateral renal cysts noted. Bladder / Pelvic organs: Unremarkable. Bowel: No bowel obstruction. No abnormal bowel wall thickening. The appendix is not definitely seen. There is a large colonic stool burden, much of which appears desiccated. A significant large volume of stool is seen in the rectum, and there is mild rectal wall thickening and mild inflammatory fat stranding seen especially in the posterior perirectal space. A small right paramedian incisional related abdominal wall hernia contains a few loops of small bowel without evidence for obstruction.. Lymph nodes: No retroperitoneal, mesenteric, or pelvic lymphadenopathy. Peritoneum / Retroperitoneum: No free fluid or air within the abdomen. Vessels: No infrarenal aortic aneurysm. Bones and soft tissues: No suspicious lesion in the bones. Degenerative changes of the thoracolumbar spine. Dextroscoliotic curvature of the lumbar spine. IMPRESSION: 1. There is a large colonic stool burden, much of which is desiccated, especially in the rectum, much of which is desiccated, especially in the rectum, and there is mild rectal wall thickening and perirectal inflammatory fat stranding, which may be seen with stercoral colitis. 2. There is an ill-defined 3.5 cm lesion in the liver. Recommend follow-up abdominal MRI. 3. Polycystic kidneys. Electronically signed by Ruddy Clayton 07-05-2024 3:06 PM
--- NOTE | 2024-07-05 15:57 | XRay Report ---
Chest radiograph, one view History: Weakness Comparison: 11/21/2022 Findings: Single AP view of the chest performed. No focal consolidation or pleural effusion. Mild streaky atelectasis or scar at the lower lung on the left again seen. No pneumothorax. Enlargement of the cardiac silhouette. There is significant enlargement of the pulmonary arterial silhouette suggesting pulmonary pretension. An aortic root stent is seen. No evidence for lymphadenopathy. No visualized bony or soft tissue abnormality. Bilateral shoulder arthroplasty. Impression: No acute process. Mild scarring and/or atelectasis at the left lower lung again seen. Note there is significant enlargement of the pulmonary arterial structures suggesting pulmonary hypertension. Electronically signed by Ruddy Clayton 07-05-2024 3:56 PM
[2024-07-05] MEDS ORDERED: bisacodyL 10 MG SUPP PR PRN (16:20)
[2024-07-05] MEDS ORDERED: MoRPHine SULFATE 10 MG/0.5 ML UDP SL PRN (16:40)
[2024-07-05] MEDS ORDERED: LORazepam 2 MG/1 ML VIAL IV PRN (16:40)
[2024-07-05] MEDS ORDERED: LORazepam 2 MG/1 ML VIAL IM PRN (16:45)
[2024-07-05] MEDS: bisacodyL 10 MG SUPP PR STA (16:49)
--- NOTE | 2024-07-05 17:07 | History & Physical Report ---
Date of Service July 05, 2024 Assessment & Plan (1) Severe Alzheimer dementia with agitation: Plan: -as noted by years of advancing dementia, noted agitation -no longer able to eat, as evidenced to this provider patient unable to safely swallow either -unable to raise hands above head or follow any commands -end stage disease evidenced by above, 35 pound weight loss in 3 months (even with severe constipation) -GOC discussion as above, family would like to focus on comfort at this time, agreaable to hospice Plan: -case management consult for hospice -suppository/enema for severe constipation (could be making symptoms worse) -check UA for UTI -lorazepam prn for agitation (subq/IM to get rid of IV needs) -comfort diet -no further lab draws, comfort care orders placed (2) Constipation: Plan: -as evidenced by imaging findings -likely in setting of severe dehydration and minimal PO intake Plan: -see above, enema/suppositories as now having minimal PO intake (3) Stercoral colitis: Plan: -in setting of constipation -supportive care (4) Dehydration: Plan: -s/p 2 L of NS in ED -encourage PO intake (5) Failure to thrive in adult: Plan: -in setting of end stage dementia and severe constipation (6) History of subarachnoid hemorrhage: Plan: -contributing factor to end stage dementia (7) History of traumatic brain injury: Plan: -contributing factor to end stage dementia (8) Severe aortic stenosis: Plan: -very severe per echo readings -continue aspirin given CAD s/p RCA stent (9) Atrial fibrillation with RVR: Plan: -continue amiodarone (10) Moderate mitral stenosis: Plan: -as noted on echo (11) Type 2 diabetes mellitus: Plan: -continue daily lantus, hold SSI or other medications -can stop if bothersome to patient Plan I spent a total of 75 minutes coordinating, documenting, and providing care for this patient excluding time spent in the performance of separately billed services. History of Present Illness Chief Complaint: failure to thrive Primary Care Provider: Vidya Gonzalez at [place] 89-year-old female past medical history of CAD status post RCA stent, severe aortic stenosis, HFpEF, end-stage dementia/Alzheimer's, history of bladder cancer, moderate mitral stenosis, TBI, history of subarachnoid hemorrhage who presents for failure to thrive at [facility]. She currently resides at [facility]. Daughter and son-in-law are in the room. Are her next of kin. Collateral gathered from daughter only as patient is unable to provide history. Symptoms started about 3 weeks ago. For the past year she has been declining both in ADLs and ability to eat/function. For the past 3 weeks she has barely spoken and is not eating. She has been having a bit of abdominal pain. At this point she is barely able to lift her hand. Has been having bouts of agitation as well over past year. Per daughter she has been declining for a long time. Goals of care conversation was discussed at length. 3 options were presented to the family. 1 option was to continue current level of care, next option is to fix easily easily reversible pathologies, last option is to focus more on her comfort. Given the advanced nature of her dementia signaled by 30 pound weight loss in past 3 months and inability to raise arms above her head prognosis is likely limited to weeks to months or sooner than that. Upon hearing this information daughter and son-in-law state that they would not want her to suffer. They state that she has a DNR on file already. They state that quality of life is the most important thing to her. They would like to focus more on comfort and quality life at this point. They are okay with simple things such as treating urinary tract infections or constipation but would not want blood draws or any further aggressive measures, and would not want her to return to the hospital. Therefore she is comfort care focused at this time. They are agreeable to discussing a hospice agency of their choice. Hospice was explained at length. CODE STATUS was also discussed during this meeting she already has a DNR on file. Allergies Allergy/AdvReac Type Severity Reaction Status Date / Time pollen extracts Allergy Intermediate ITCHY Verified 06/19/23 15:19 EYES, SNEEZING, CONGESTION lisinopril Allergy Unknown CAN'T Verified 06/19/23 15:19 REMEMBER oxaprozin [From Daypro] Allergy Unknown CAN'T Verified 06/19/23 15:19 REMEMBER Penicillins Allergy Unknown CAN'T Verified 06/19/23 15:19 REMEMBER Home Medications Medication Instructions Recorded Confirmed Type Saccharomyces boulardii 250 mg 250 mg PO QAM 12/06/21 06/19/23 History capsule acetaminophen 325 mg tablet 650 mg PO Q6H PRN PAIN/FEVER 12/06/21 06/19/23 History (Tylenol) allopurinol 100 mg tablet 100 mg PO QAM 12/06/21 06/19/23 History aspirin 81 mg chewable tablet 81 mg PO DAILY 12/06/21 06/19/23 History atorvastatin 10 mg tablet 10 mg PO PM 12/06/21 06/19/23 History cholecalciferol (vitamin D3) 25 25 mcg PO Q OTHER DAY 12/06/21 06/19/23 History mcg (1,000 unit) capsule (Vitamin D3) cyanocobalamin (vitamin B-12) 500 1,000 mcg PO QAM 12/06/21 06/19/23 History mcg tablet (Vitamin B-12) insulin glargine 100 unit/mL (3 22 unit subcut HS 12/06/21 06/19/23 History mL) subcutaneous pen (Lantus Solostar U-100 Insulin) lactulose 10 gram/15 mL oral 30 g PO QAM 12/06/21 06/19/23 History solution yqzvcija-qck-susxax 5 mg-zeaxanth 1 cap PO QID 12/06/21 06/19/23 History 1 mg-bilberry 7.5 mg-herbal capsule (Macular Health Formula) sodium chloride-aloe vera nasal 1 ea intranasal BID 12/06/21 06/19/23 History swab coQ10 (ubiquinol) 200 mg capsule 200 mg PO DAILY 11/16/22 06/19/23 History donepezil 10 mg tablet 10 mg PO DAILY 11/16/22 06/19/23 History escitalopram oxalate 10 mg tablet 10 mg PO DAILY 11/16/22 06/19/23 History (Lexapro) ezetimibe 10 mg tablet (Zetia) 10 mg PO DAILY 11/16/22 06/19/23 History losartan 25 mg tablet 12.5 mg PO DAILY 11/16/22 06/19/23 History metformin 500 mg tablet,extended 500 mg PO QDD 11/16/22 06/19/23 History release 24 hr albuterol sulfate 90 mcg/actuation 2 inh inhalation Q6HWA PRN 11/22/22 06/19/23 Rx breath activated powder inhaler shortness of breath or wheezing #1 ea furosemide 20 mg tablet (Lasix) 20 mg PO Q OTHER DAY #30 tabs 11/22/22 06/19/23 Rx amiodarone 200 mg tablet mg 07/05/24 History clopidogrel 75 mg tablet mg 07/05/24 History duloxetine 30 mg capsule,delayed mg PO 07/05/24 History release Past Med/Surg History Problem List (Updated 07/05/24 @ 17:03 by Sabino Bonilla MD) Failure to thrive in adult Severe Alzheimer dementia with agitation Dehydration Constipation Stercoral colitis Moderate mitral stenosis Severe aortic stenosis Atrial fibrillation with RVR (Acute) History of coronary artery stent placement Moderate to severe aortic stenosis History of bladder cancer Memory loss History of subarachnoid hemorrhage History of traumatic brain injury Gouty arthropathy Coronary artery disease Type 2 diabetes mellitus Medical History Elevated troponin Syncope Painful orthopaedic hardware No significant family history Diabetic peripheral neuropathy Intracranial bleed Hyperlipidemia Gout Osteoarthritis of knees, bilateral Seizure-like activity Surgical History No significant past surgical history Social History Smoking Status: Never smoker Second Hand Exposure: No; Hx Alcohol Use: No Hx Substance Use: No Preferred Language: Burmese Communication Ability: Effective Hand Spray Operator Required: No Beliefs That Will Affect Care: None marital status: / Current Living Situation: Spouse Current Living Situation Comment: lives at [facility] current occupational status: retired Feels Safe at Home: Yes Assistive Devices: Walker Review of Systems Review of Systems: Unable to give ROS due to end stage dementia. Physical Exam Physical Exam: Gen: A&O x0 NAD HEENT: NCAT, EOMI, not icteric. External ears normal. No rhinorrhea. Dry mucus membranes Neck: Supple, full range of motion, no observable masses, No meningeal sign. Lungs: No Respiratory distress. CV: tachycardic, regular rhythm Abdomen: distended, no flinching to palpation MSK: No joint swelling, no redness. Skin: No rashes, petechiae, lesions. Neuro: unable to examine to patient status Psych: not interactive due to end stage dementia Results & Data Results & Data Vital Signs (Past 12 Hours) Vital Signs Temp Pulse Resp BP Pulse Ox O2 Del Method 07/05/24 14:27 144/91 H 07/05/24 14:15 90 20 93 07/05/24 13:38 94 Room Air 07/05/24 13:30 101 H 18 92 07/05/24 13:18 100 Room Air 07/05/24 13:13 98 H 07/05/24 13:12 128/95 07/05/24 13:10 36.9 C 104 H 22 128/95 96 Room Air Laboratory Results Laboratory Results WBC 6.40 K/ul (4.8-10.8) 07/05/24 13:33 RBC 4.22 M/uL (4.20-5.40) 07/05/24 13:33 Hgb 11.8 g/dl (12.0-16.0) L 07/05/24 13:33 Hct 36.4 % (37.0-47.0) L 07/05/24 13:33 MCV 86.3 fL (80.0-100.0) 07/05/24 13:33 MCH 28.0 pg (25.0-34.0) 07/05/24 13:33 MCHC 32.4 g/dL (32.0-36.0) 07/05/24 13:33 RDW Std Deviation 50.4 fL (36.4-46.3) H 07/05/24 13:33 RDW Coeff of Alejandra 16.2 % (11.5-14.5) H 07/05/24 13:33 Plt Count 221 K/uL (130-400) 07/05/24 13:33 MPV 11.1 fL (9.4-12.4) 07/05/24 13:33 Immature Gran % (Auto) 0.3 % 07/05/24 13:33 Neut % (Auto) 88.2 % 07/05/24 13:33 Lymph % (Auto) 5.5 % 07/05/24 13:33 Fallon % (Auto) 5.8 % 07/05/24 13:33 Eos % (Auto) 0.0 % 07/05/24 13:33 Baso % (Auto) 0.2 % 07/05/24 13:33 Neut # (Auto) 5.65 K/uL (1.40-6.50) 07/05/24 13:33 Lymph # (Auto) 0.35 K/uL (1.20-3.40) L 07/05/24 13:33 Fallon # (Auto) 0.37 K/uL (0.11-0.59) 07/05/24 13:33 Eos # (Auto) 0.00 K/uL (0.00-0.50) 07/05/24 13:33 Baso # (Auto) 0.01 K/uL (0.00-0.20) 07/05/24 13:33 Immature Gran # (Auto) 0.02 K/uL (0.01-0.20) 07/05/24 13:33 Sodium 139 mmol/L (136-145) 07/05/24 13:33 Potassium 3.6 mmol/L (3.5-5.1) 07/05/24 13:33 Chloride 99 mmol/L (98-107) 07/05/24 13:33 Carbon Dioxide 31 mmol/L (21-32) 07/05/24 13:33 Anion Gap 9 (3-11) 07/05/24 13:33 BUN 58 mg/dl (6-23) H 07/05/24 13:33 Creatinine 2.11 mg/dl (0.6-1.2) H 07/05/24 13:33 Est Cr Clr Drug Dosing Not Reportable 07/05/24 13:33 eGFR 22.26 07/05/24 13:33 BUN/Creatinine Ratio 27.5 (10-20) H 07/05/24 13:33 Glucose 141 mg/dl (70-99(Fasting)) H 07/05/24 13:33 Calcium 12.1 mg/dl (8.6-10.3) H* 07/05/24 13:33 Total Bilirubin 1.0 mg/dl (0.2-1.0) 07/05/24 13:33 AST 23 U/L (13-39) 07/05/24 13:33 ALT 18 U/L (7-52) 07/05/24 13:33 Alkaline Phosphatase 100 U/L (34-104) 07/05/24 13:33 Total Protein 6.4 gm/dl (6.0-8.3) 07/05/24 13:33 Albumin 3.9 gm/dl (3.4-5.0) 07/05/24 13:33 Globulin 2.5 gm/dl (2.5-4.0) 07/05/24 13:33 Albumin/Globulin Ratio 1.6 (0.9-2) 07/05/24 13:33 Lipase 40 U/L (11-82) 07/05/24 13:33 Adenovirus (PCR) Not Detected (NotDetected) 07/05/24 13:33 B. pertussis DNA (PCR) Not Detected (NotDetected) 07/05/24 13:33 B.parapertussis DNA PCR Not Detected (NotDetected) 07/05/24 13:33 C. pneumoniae DNA (PCR) Not Detected (NotDetected) 07/05/24 13:33 Coronavirus OC43 (PCR) Not Detected (NotDetected) 07/05/24 13:33 Coronavirus HKU1 (PCR) Not Detected (NotDetected) 07/05/24 13:33 Coronavirus 229E (PCR) Not Detected (NotDetected) 07/05/24 13:33 SARS-CoV-2 (PCR) Not Detected (NotDetected) 07/05/24 13:33 Coronavirus NL63 (PCR) Not Detected (NotDetected) 07/05/24 13:33 Human Metapneumovir PCR Not Detected (NotDetected) 07/05/24 13:33 Influenza Type A (PCR) Not Detected (NotDetected) 07/05/24 13:33 Influenza Type B (PCR) Not Detected (NotDetected) 07/05/24 13:33 M. pneumoniae (PCR) Not Detected (NotDetected) 07/05/24 13:33 Parainfluenza 1 (PCR) Not Detected (NotDetected) 07/05/24 13:33 Parainfluenza 2 (PCR) Not Detected (NotDetected) 07/05/24 13:33 Parainfluenza 3 (PCR) Not Detected (NotDetected) 07/05/24 13:33 Parainfluenza 4 (PCR) Not Detected (NotDetected) 07/05/24 13:33 RSV (PCR) Not Detected (NotDetected) 07/05/24 13:33 Entero/Rhino (PCR) Not Detected (NotDetected) 07/05/24 13:[address] 07/05/24 13:35 CT head without contrast History: Altered mental status Comparison: 10/16/2023 Technique: Using multidetector thin collimation helical acquisition technique, axial, coronal and sagittal CT images from the skull base to the vertex were obtained without intravenous contrast. Dose reduction techniques were achieved by using automatic exposure control and/or adjustment of mA and/or kV according to patient size and/or use of iterative reconstruction technique. Findings: No intracranial hemorrhage, mass-effect, or midline shift. The ventricles are proportionate to the cerebral sulci. Chronic right occipital lobe infarct otherwise the gleason to white matter differentiation of the cerebral hemispheres is preserved. The basal cisterns are patent. There is marked cerebral atrophy. Moderate, patchy low-attenuation changes in the white matter, most suggestive of sequelae of chronic small vessel ischemic disease. The visualized paranasal sinuses are clear. Mastoid air cells are clear. Impression: No acute intracranial pathology. Electronically signed by Ruddy Clayton 07-05-2024 3:06 PM Abdomen/Pelvis CT 07/05/24 14:13 EXAMINATION: CT of the abdomen and pelvis performed without contrast TECHNIQUE: Helical CT images from the lung bases through the symphysis pubis were obtained without contrast. Coronal and sagittal reformatted images were generated at a workstation for further assessment. Dose reduction techniques were achieved by using automatic exposure control and/or adjustment of mA and/or kV according to patient size and/or use of iterative reconstruction technique. COMPARISON: None HISTORY: Abdominal pain FINDINGS: Lower chest: No consolidation. No pleural effusion or pneumothorax. Mild scattered atelectasis and scarring throughout the periphery of the lung bases. Liver: There is an ill-defined low-density lesion in the liver near the fissure for the ligamentum teres that measures approximately 3.5 cm. Enlargement of the intrahepatic portal veins, and there is borderline enlargement of the extrahepatic main portal vein measuring up to 15 mm. The liver is also increased in density which may be due to iron deposition or possibly amiodarone use, in this patient with significant cardiomegaly and coronary stenting. Gallbladder: No gallstones. No evidence of acute cholecystitis. High density material in the gallbladder, may represent vicarious excretion of contrast or milk of calcium. Spleen: Normal size. Pancreas: No suspicious pancreatic lesions. The pancreatic duct is not dilated. Adrenal glands: No adrenal nodules. Kidneys: No hydronephrosis or obstructing renal stones. Polycystic kidney disease, with numerous, prominent bilateral renal cysts noted. Bladder / Pelvic organs: Unremarkable. Bowel: No bowel obstruction. No abnormal bowel wall thickening. The appendix is not definitely seen. There is a large colonic stool burden, much of which appears desiccated. A significant large volume of stool is seen in the rectum, and there is mild rectal wall thickening and mild inflammatory fat stranding seen especially in the posterior perirectal space. A small right paramedian incisional related abdominal wall hernia contains a few loops of small bowel without evidence for obstruction.. Lymph nodes: No retroperitoneal, mesenteric, or pelvic lymphadenopathy. Peritoneum / Retroperitoneum: No free fluid or air within the abdomen. Vessels: No infrarenal aortic aneurysm. Bones and soft tissues: No suspicious lesion in the bones. Degenerative changes of the thoracolumbar spine. Dextroscoliotic curvature of the lumbar spine. IMPRESSION: 1. There is a large colonic stool burden, much of which is desiccated, especially in the rectum, much of which is desiccated, especially in the rectum, and there is mild rectal wall thickening and perirectal inflammatory fat stranding, which may be seen with stercoral colitis. 2. There is an ill-defined 3.5 cm lesion in the liver. Recommend follow-up abdominal MRI. 3. Polycystic kidneys. Electronically signed by Ruddy Clayton 07-05-2024 3:06 PM Chest X-Ray 07/05/24 15:12 Chest radiograph, one view History: Weakness Comparison: 11/21/2022 Findings: Single AP view of the chest performed. No focal consolidation or pleural effusion. Mild streaky atelectasis or scar at the lower lung on the left again seen. No pneumothorax. Enlargement of the cardiac silhouette. There is significant enlargement of the pulmonary arterial silhouette suggesting pulmonary pretension. An aortic root stent is seen. No evidence for lymphadenopathy. No visualized bony or soft tissue abnormality. Bilateral shoulder arthroplasty. Impression: No acute process. Mild scarring and/or atelectasis at the left lower lung again seen. Note there is significant enlargement of the pulmonary arterial structures suggesting pulmonary hypertension. Electronically signed by Ruddy Clayton 07-05-2024 3:56 PM Code Status & VTE Plan Code Status DNRDNI, comfort care (1) Severe Alzheimer dementia with agitation Alzheimer's disease onset: late onset Qualified Code(s): G30.1 - Alzheimer's disease with late onset; F02.C11 - Dementia in other diseases classified elsewhere, severe, with agitation (2) Constipation Constipation type: slow transit constipation Qualified Code(s): K59.01 - Slow transit constipation (11) Type 2 diabetes mellitus Diabetes mellitus mcfp insulin use: with parts counterman use Diabetes mellitus complication status: with neurologic complications Diabetes mellitus complication detail: with polyneuropathy Qualified Code(s): E11.42 - Type 2 diabetes mellitus with diabetic polyneuropathy; Z79.4 - truck terminal manager (current) use of insulin
[2024-07-05 17:38] VITALS: RESP 16
[2024-07-05] MEDS ORDERED: ONDANSETRON INJ 2 MG/ML 2 ML VIAL IV PRN (18:37)
[2024-07-05] MEDS ORDERED: ACETAMINOPHEN 325 MG TAB PO PRN (18:37)
[2024-07-05] MEDS ORDERED: MELATONIN 3 MG TAB PO PRN (18:37)
[2024-07-05] MEDS ORDERED: POLYETHYLENE (MIRALAX) 17 GM PACK PO PRN (18:37)
[2024-07-05] MEDS ORDERED: ALBUTEROL HFA 8 GM INHALER INH PRN (18:43)
[2024-07-05 18:48] VITALS: BP 137/91; PULSE 104; O2SAT 95
[2024-07-05] MEDS: LANTUS PER UNIT CHARGE SC SCH (22:25)
[2024-07-06 08:11] LABS: Anion Gap 6 (3-11); BUN Creatinine Ratio 31.2 (10-20); Blood Urea Nitrogen 54 mg/dl (6-23); Calcium 10.9 mg/dl (8.6-10.3); Carbon Dioxide 33 mmol/L (21-32); Chloride 107 mmol/L (98-107); Glucose 62 mg/dl (70-99(Fasting)); Potassium 3.1 mmol/L (3.5-5.1); Sodium 146 mmol/L (136-145)
[2024-07-06] MEDS: allopurinoL 100 MG TAB PO SCH (09:55)
[2024-07-06] MEDS: ESCITALOPRAM OXALATE 10 MG TAB PO SCH (09:56)
[2024-07-06] MEDS: DONEPEZIL HCL 10 MG TAB PO SCH (09:56)
[2024-07-06] MEDS: DULoxetine HCL 30 MG CAP PO SCH (09:56)
[2024-07-06] MEDS: ASPIRIN 81 MG CHEW PO SCH (09:56)
--- NOTE | 2024-07-06 10:54 | Discharge Summary ---
Discharge Summary Date of Service July 06, 2024 Principal Dx & Hospital Course #1 = Principal Diagnosis (1) Severe Alzheimer dementia with agitation: (2) Constipation: (3) Stercoral colitis: (4) Dehydration: (5) Failure to thrive in adult: (6) History of subarachnoid hemorrhage: (7) History of traumatic brain injury: (8) Severe aortic stenosis: (9) Atrial fibrillation with RVR: (10) Moderate mitral stenosis: (11) Type 2 diabetes mellitus: Notes For Next Care Provider Medication Changes From Visit Patient will be going back to [facility] under hospice care on comfort measure orders Admission HPI Per Admitting Provider Patient is a 89-year-old female past medical history of CAD status post RCA stent, severe aortic stenosis, HFpEF, end-stage dementia/Alzheimer's, history of bladder cancer, moderate mitral stenosis, TBI, history of subarachnoid hemorrhage who presents for failure to thrive at [facility]. She currently resides at [facility]. Daughter and son-in-law are in the room. Patient was brought in because of gradually worsening a deterioration, patient has been refusing to take p.o. intake, patient was found to have slightly elevated calcium likely due to immobility and also RAMANA with creatinine of 2 with baseline of 1, plan was initially for IV hydration however admitting physician discussed the case with daughter and the plan was set for involving case management for transitioning care to hospice. Patient was seen and evaluated today, I then spoke with case management and also patient's daughter at bedside. At this time we are going to send the patient back to [facility] under hospice care, patient will be provided Ativan p.o., morphine solution and also Tylenol for comfort but otherwise all other medications will be stopped. Updated Medication List Medication Instructions Recorded Confirmed Type acetaminophen 325 mg tablet 650 mg PO UD PRN PAIN/FEVER 12/06/21 07/05/24 History (Tylenol) acetaminophen 325 mg tablet 650 mg (2 x 325 mg) PO Q4H PRN 07/06/24 Rx fever or pain #20 tabs lorazepam 0.5 mg tablet (Ativan) 0.5 mg PO BID PRN anxiety #14 tabs 07/06/24 Rx morphine concentrate 100 mg/5 mL 5 mg (0.25 mL) sublingual Q3H PRN 07/06/24 Rx (20 mg/mL) oral solution dyspnea #120 mL Hospital Stay Data Consultations 07/05/24 15:35 ED Decision to Admit Stat Diagnostic Imagining Performed 07/05/24 13:35 CT head/brain wo con Stat 07/05/24 14:13 CT abd pelvis wo con Stat Pending Results Patient Have Any Pending Studies at Discharge: No Discharge Instructions Given to Patient (Per Discharging Provider) The patient unfortunately does not cooperate to take p.o. either medications or hydration so this is going to be very unpredictable Total Time Total Time Spent Total Time Spent (In Minutes): More than 35 minutes
--- NOTE | 2024-07-07 05:53 | Electrocardiogram Report ---
Test Reason : Blood Pressure : */* mmHG Vent. Rate : 97 BPM Atrial Rate : * BPM P-R Int : * ms QRS Dur : 106 ms QT Int : 382 ms P-R-T Axes : * -5 218 degrees QTcB Int : 485 ms Atrial fibrillation Minimal voltage criteria for LVH, may be normal variant ( Arun product ) Abnormal ECG When compared with ECG of 18-Nov-2022 22:18, Atrial fibrillation has replaced Sinus rhythm Confirmed by Raj Hudson ([id number]) on 07/07/2024 5:53:07 AM Referred By: Lisa pollard [facility] Confirmed By: Raj Hudson
== END 2024-07-06 13:41 | DRG 57 ==
LOC: ED 13:05 → SUATTDRO 16:20 → 3E 16:20